=== PATIENT | male | born 1950 | race Caucasian/White ===

== ENCOUNTER → 2017-03-19 | Outpatient (CLI) | payer BC ==
[~2017-03-19] MED LIST: CLC100 PO; FISHOIL PO; NAPR1TAB9 PO; VTMEUNK
[2017-03-19 13:25] LABS: ALT/SGPT 32 U/L (12-78); BLOOD UREA NITROGEN 14 mg/dl (7-18); BUN/CREATININE RATIO 11.3 (10-20); CALCIUM 9.1 mg/dl (8.5-10.1); CARBON DIOXIDE 26 mmol/L (21-32); CHLORIDE 109 mmol/L (98-107); CHOLESTEROL 282 mg/dl (0-200); ESTIMATED AVERAGE GLUCOSE 123 mg/dl; GLUCOSE 113 mg/dl (70-99); HA1C FLAG Normal (Normal); POTASSIUM 4.2 mmol/L (3.5-5.1); SODIUM 144 mmol/L (136-145); TRIGLYCERIDES 256 mg/dl (0-150); VERY LOW DENSITY LIPOPROT CALC 51 mg/dl
[2017-03-19 13:35] LABS: ALB/GLOB RATIO 0.9 (0.9-2); ALKALINE PHOSPHATASE 67 U/L (45-117); AST/SGOT 23 U/L (15-37); CHOLESTEROL/HDL RATIO 6.9; HDL CHOLESTEROL 41 mg/dl; LDL CHOLESTEROL CALCULATED 190 mg/dl
== END | disposition home or self-care (01) ==
LOC: C.LABPVFM 07:46
PROVIDERS: ATTEND Family Medicine
DX: D33.3 Benign neoplasm of cranial nerves (principal); E78.00 Pure hypercholesterolemia, unspecified; R73.9 Hyperglycemia, unspecified

== ENCOUNTER → 2017-08-17 | Outpatient (CLI) | payer BC ==
[2017-08-17 13:01] LABS: BLOOD UREA NITROGEN 16 mg/dl (7-18); BUN/CREATININE RATIO 13.9 (10-20); CALCIUM 8.9 mg/dl (8.5-10.1); CARBON DIOXIDE 29 mmol/L (21-32); CHLORIDE 109 mmol/L (98-107); CREATININE 1.16 mg/dl (0.60-1.40); GLUCOSE 99 mg/dl (70-99); POTASSIUM 4.2 mmol/L (3.5-5.1); SODIUM 142 mmol/L (136-145)
[2017-08-17 13:05] LABS: CHOLESTEROL 217 mg/dl (0-200); HDL CHOLESTEROL 54 mg/dl; LDL CHOLESTEROL CALCULATED 110 mg/dl; TRIGLYCERIDES 263 mg/dl (0-150); VERY LOW DENSITY LIPOPROT CALC 53 mg/dl
== END | disposition home or self-care (01) ==
LOC: C.LABPVFM 08:37
PROVIDERS: ATTEND Family Medicine
DX: E78.00 Pure hypercholesterolemia, unspecified (principal); Z11.59 Encounter for screening for other viral diseases

== ENCOUNTER 2021-07-14 16:09 | Inpatient (IN) ==
[2021-07-14] MEDS ORDERED: cefTRIAXone SODIUM 1,000 MG/50 ML BAG IV STA (18:02)
[2021-07-14 18:03] LABS: Basophils # (auto) 0.01 K/uL (0-0.2); Basophils % (auto) 0.1 %; Eosinophils # (auto) 0.02 K/uL (0-0.5); Eosinophils % (auto) 0.2 %; Hematocrit (blood only) 45.3 % (42-52); Hemoglobin 15.8 g/dL (14.0-18.0); Immature Granulocytes # (auto) 0.02 K/uL (0.00-0.02); Immature Granulocytes % (auto) 0.2 %; Lymphocytes # (auto) 0.59 K/uL (1.2-3.4); Mean Corpuscular Hemoglobin 31.4 pg (25-34); Mean Corpuscular Hgb Conc 34.9 g/dL (32-36); Mean Corpuscular Volume 90.1 fL (80-100); Monocytes # (auto) 0.54 K/uL (0.11-0.59); Monocytes % (auto) 5.5 %; Neutrophils # (auto) 8.67 K/uL (1.4-6.5); Platelet Count 167 K/uL (130-400); RDW Coefficient of Variation 13.9 % (11.5-14.5); RDW Standard Deviation 45.8 fL (36.4-46.3); Red Blood Count 5.03 M/uL (4.7-6.1); White Blood Count 9.85 K/uL (4.8-10.8)
--- NOTE | 2021-07-14 18:07 | Emergency Department Note ---
Impression & Plan Sepsis, Acute pyelitis, High serum chloride ED Provider Note NAME: PENNY LORENZO AGE: 71 SEX: M : 1950 ARRIVES VIA: Walk-In INFORMANT: Patient ED PROVIDER(S): Nick Davila DO CHIEF COMPLAINT: Back pain HPI: Patient is a 71-year-old male who presents the ER for fevers, and shaking chills. This started in the past 24 hours. He has been vomiting inter mittently. He believes he threw up about 3-5 times. Was having dysuria, urgency, and frequency as well. He is also having bilateral back pain. No headache or change in vision. No chest pain or shortness of breath. Fevers have been as high as 103 at home. He notes he will start shaking and cannot stop. ROS: See above HPI for pertinent positives & negatives. A total of 10 systems reviewed and were otherwise negative. PAST MEDICAL HISTORY:See Below PAST SURGICAL HISTORY:See Below FAMILY HISTORY:See Below SOCIAL HISTORY:See Below HOME MEDICATIONS:See Below ALLERGIES:See Below VITALS:See Below PHYSICAL EXAMINATION: GENERAL: Sitting up in bed, alert, well appearing, well nourished, no distress, non-toxic EYE EXAM: normal conjunctiva. OROPHARYNX: no exudate, no erythema, lips, buccal mucosa, and tongue normal and mucous membranes are moist NECK: supple, no nuchal rigidity, no adenopathy, non-tender LUNGS: Clear to auscultation. Normal chest wall mechanics HEART: no murmurs, S1 normal and S2 normal ABDOMEN: abdomen soft, non-tender, normo-active bowel sounds, no masses, no rebound or guarding. UPPER EXTREMITIES: upper extremities are grossly normal. LOWER EXTREMITIES: No pitting edema. NEURO EXAM: Normal sensorium, cranial nerves II-XII grossly intact, normal speech, no gross weakness of arms, no gross weakness of legs. MEDICAL DECISION MAKING: Patient is a 71-year-old male who presents the ER for fevers, shaking chills and back pain. This is in combination with urinary symptoms. IV was established blood work was obtained. Labs show no significant leukocytosis or anemia. INR unremarkable. BMP with slightly elevated chloride. Creatinine 1.5. LFTs bilirubin was unremarkable. UA does suggest UTI with nitrates, leuks, whites and only 5-10 epithelial cells with +[address] bacteria. Cov[address] was negative. CT abdomen pelvis does suggest a cystitis with questionable pyelonephritis. Patient was given IV fluids and IV Rocephin. He was updated bedside. He was febrile and tachycardic. He was admitted to the hospital for further work-up of his sepsis secondary to [place]. Triage Nursing notes reviewed. Limited review of prior medical records performed Vital Signs: reviewed and remarkable for febrile, tachycardic Differential diagnosis: Differential diagnosis includes etiologies such as sepsis, UTI, pneumonia, metabolic, electrolyte abnormalities, cardiac sources, intracerebral event, toxicologic, neurological, as well as others were entertained. ER treatment provided: See below Diagnostics interpreted by me: ECG: Sinus rhythm rate 97 Normal axis No PVCs QTC 436 Cardiac Monitoring: An order was placed for continuous cardiac monitoring. The monitor shows a rate of 92 with sinus rhythm. Laboratory studies: As stated above and show below. Imaging studies: See below Consultation(s): D/w w/ Toby for further eval Procedures: none Critical Care: None Past Med/Surg History Medical History (Updated 07/14/21 @ 22:06 by Nick Davila DO) Acid reflux disease Arthritis Backache Benign hypertension Elevated blood pressure reading Elevated blood sugar level Encounter for screening for diabetes mellitus Encounter for screening for lipid disorder External hemorrhoids Hearing difficulty Hypercholesterolemia Hyperlipidemia Hypertension Itching Knee pain Knee sprain Muscle cramping Psoriasis Rash and nonspecific skin eruption Screening for prostate cancer Vestibular schwannoma Surgical History (Updated 10/21/20 @ 10:22 by Lianet Middleton) History of hemorrhoidectomy History of hernia repair Hx of lymph node biopsy Family History (Updated 10/21/20 @ 10:23 by Lianet Middleton) Mother Myocardial infarction Father Myocardial infarction Sister Cancer, Onset Age: 70 do not know what type Denies family history of Ovarian cancer Prostate cancer Breast cancer Colorectal cancer Social History (Updated 10/21/20 @ 10:31 by Lianet Middleton) Smoking Status: Never smoker Tobacco Type: Cigarettes Age Started Using Tobacco: 16; Age Quit Using Tobacco: 40; packs per day: 1.5; Years Smoked: 24; Cigarettes Per Day: 30; Number of Years Since Quit: 30; Second Hand Exposure: Yes ( is a smoker with asthma and COPD); Hx Alcohol Use: No Hx Substance Use: No Preferred Language: Maori Communication Ability: Effective Visual Impairment: No Limitations Hearing Ability: Hard of Hearing Activated Sludge Attendant Required: No marital status: Current Living Situation: Spouse current occupational status: employed 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 Mercer) Assistive Devices: Denture - Upper and Denture - Lower Allergies Allergies Allergy/AdvReac Type Severity Reaction Status Date / Time No Known Allergies Allergy Verified 07/14/21 19:39 Home Meds Home Medications Medication Instructions Recorded Confirmed docusate sodium 100 mg capsule 100 mg PO DAILY 04/24/19 07/14/21 (Dulcolax Stool Softener (docusate)) clobetasol 0.05 % topical ointment 1 applic TOPICAL DAILY 10/21/20 07/14/21 triamcinolone acetonide 0.1 % 1 applic TOPICAL BID PRN #1 gm 10/21/20 07/14/21 topical cream acetaminophen 500 mg tablet 1,000 mg PO Q6H PRN tab 11/08/20 07/14/21 (Tylenol Extra Strength) potassium gluconate 2.5 mEq tablet 2.5 meq PO DAILY 03/23/21 07/14/21 silver sulfadiazine 1 % topical 1 applic TOPICAL UD 07/14/21 07/14/21 cream (SSD) Previous Rx's Medication Instructions Recorded omeprazole 20 mg capsule,delayed 20 mg PO DAILY #90 cap 05/25/20 release doxepin 10 mg capsule 20 mg PO DAILY #60 cap 08/23/20 lisinopril 10 mg tablet 10 mg PO DAILY #90 tab 10/08/20 amlodipine 10 mg tablet 10 mg PO DAILY #90 tab 03/23/21 atorvastatin 20 mg tablet 20 mg PO DAILY #90 tab 07/11/21 Results & Data (ED) Vital Signs Vital Signs - 24 hr 07/14/21 16:18 07/14/21 19:24 Temperature 38.1 C H Temperature Source Oral Pulse Rate 120 H 100 H Respiratory Rate 18 18 Respiratory Effort / Characteristics Non-Labored Spontaneous Accessory Muscle Use Respiratory Depth Normal Blood Pressure 102/59 L Blood Pressure Mean 73 Pulse Oximetry 92 98 Oxygen Delivery Method Room Air Room Air Sepsis Recent Fever Within 48 Hours No Sepsis New/Unexplained Change in Mental Status No Sepsis Action Taken by Nursing Physician Notified Laboratory Data Result diagrams: 07/14/21 17:49 07/14/21 17:49 Lab Results 07/14/21 07/14/21 07/14/21 Range/Units 17:49 17:49 17:49 WBC 9.85 (4.8-10.8) K/uL RBC 5.03 (4.7-6.1) M/uL Hgb 15.8 (14.0-18.0) g/dL Hct 45.3 (42-52) % MCV 90.1 (80-100) fL MCH 31.4 (25-34) pg MCHC 34.9 (32-36) g/dL RDW Std Deviation 45.8 (36.4-46.3) fL RDW Coeff of Alhaji 13.9 (11.5-14.5) % Plt Count 167 (130-400) K/uL MPV 10.0 (7.4-10.4) fL Immature Gran % (Auto) 0.2 % Neut % (Auto) 88.0 % Lymph % (Auto) 6.0 % Ritchie % (Auto) 5.5 % Eos % (Auto) 0.2 % Baso % (Auto) 0.1 % Neut # (Auto) 8.67 H (1.4-6.5) K/uL Lymph # (Auto) 0.59 L (1.2-3.4) K/uL Ritchie # (Auto) 0.54 (0.11-0.59) K/uL Eos # (Auto) 0.02 (0-0.5) K/uL Baso # (Auto) 0.01 (0-0.2) K/uL Immature Gran # (Auto) 0.02 (0.00-0.02) K/uL PT 10.3 (9.0-12.0) Seconds INR 1.0 (0.9-1.1) APTT 25.6 (21.0-31.0) Seconds PTT Ratio 1.0 Sodium 141 (136-145) mmol/L Potassium 4.0 (3.5-5.1) mmol/L Chloride 109 H (98-107) mmol/L Carbon Dioxide 27 (21-32) mmol/L Anion Gap 5.0 (3-11) BUN 26 H (7-18) mg/dl Creatinine 1.54 H (0.6-1.4) mg/dl Est Cr Clr Drug Dosing 43.9 ml/min Est GFR ( Amer) 51.8 ml/min Est GFR (Non-Af Amer) 44.7 ml/min BUN/Creatinine Ratio 17.1 (10-20) Glucose 91 (70-99) mg/dl Lactate (0.4-2.0) mmol/L Calcium 9.3 (8.5-10.1) mg/dl Magnesium (1.8-2.4) mg/dl Total Bilirubin 0.6 (0.2-1) mg/dl AST 27 (15-37) U/L ALT 30 (12-78) U/L Alkaline Phosphatase 108 (45-117) U/L Total Protein 7.2 (6.4-8.2) gm/dl Albumin 3.4 (3.4-5.0) gm/dl Globulin 3.8 (2.5-4.0) gm/dl Albumin/Globulin Ratio 0.9 (0.9-2) Urine Color Urine Appearance (Clear) Urine pH (4.5-7.5) Ur Specific [place] (1.000-1.030) Urine Protein (Negative) Urine Glucose (UA) (Negative) Urine Ketones (Negative) Urine Blood (Negative) Urine Nitrite (Negative) Urine Bilirubin (Negative) Urine Urobilinogen (Negative) Ur Leukocyte Esterase (Negative) Urine WBC (Auto) (0-5) /hpf Urine RBC (Auto) (0-4) /hpf U Hyaline Cast (Auto) (0-5) /lpf U Epithel Cells (Auto) (0-5) /lpf Urine Bacteria (Auto) (Negative) Urine Yeast COVID-19 Eval Order SARS-CoV-2 (PCR) (Negative) 07/14/21 07/14/21 07/14/21 Range/Units 17:49 18:30 18:37 WBC (4.8-10.8) K/uL RBC (4.7-6.1) M/uL Hgb (14.0-18.0) g/dL Hct (42-52) % MCV (80-100) fL MCH (25-34) pg MCHC (32-36) g/dL RDW Std Deviation (36.4-46.3) fL RDW Coeff of Alhaji (11.5-14.5) % Plt Count (130-400) K/uL MPV (7.4-10.4) fL Immature Gran % (Auto) % Neut % (Auto) % Lymph % (Auto) % Ritchie % (Auto) % Eos % (Auto) % Baso % (Auto) % Neut # (Auto) (1.4-6.5) K/uL Lymph # (Auto) (1.2-3.4) K/uL Ritchie # (Auto) (0.11-0.59) K/uL Eos # (Auto) (0-0.5) K/uL Baso # (Auto) (0-0.2) K/uL Immature Gran # (Auto) (0.00-0.02) K/uL PT (9.0-12.0) Seconds INR (0.9-1.1) APTT (21.0-31.0) Seconds PTT Ratio Sodium (136-145) mmol/L Potassium (3.5-5.1) mmol/L Chloride (98-107) mmol/L Carbon Dioxide (21-32) mmol/L Anion Gap (3-11) BUN (7-18) mg/dl Creatinine (0.6-1.4) mg/dl Est Cr Clr Drug Dosing ml/min Est GFR ( Amer) ml/min Est GFR (Non-Af Amer) ml/min BUN/Creatinine Ratio (10-20) Glucose (70-99) mg/dl Lactate 1.0 (0.4-2.0) mmol/L Calcium (8.5-10.1) mg/dl Magnesium 2.0 (1.8-2.4) mg/dl Total Bilirubin (0.2-1) mg/dl AST (15-37) U/L ALT (12-78) U/L Alkaline Phosphatase (45-117) U/L Total Protein (6.4-8.2) gm/dl Albumin (3.4-5.0) gm/dl Globulin (2.5-4.0) gm/dl Albumin/Globulin Ratio (0.9-2) Urine Color Dark Yellow Urine Appearance Cloudy A (Clear) Urine pH 5.5 (4.5-7.5) Ur Specific [place] 1.026 (1.000-1.030) Urine Protein 3+ H (Negative) Urine Glucose (UA) Negative (Negative) Urine Ketones 1+ H (Negative) Urine Blood 3+ H (Negative) Urine Nitrite Positive A (Negative) Urine Bilirubin 1+ H (Negative) Urine Urobilinogen Negative (Negative) Ur Leukocyte Esterase 3+ H (Negative) Urine WBC (Auto) >30 H (0-5) /hpf Urine RBC (Auto) 10-30 H (0-4) /hpf U Hyaline Cast (Auto) 1-5 (0-5) /lpf U Epithel Cells (Auto) 5-10 H (0-5) /lpf Urine Bacteria (Auto) 4+ H (Negative) Urine Yeast Not Reportable COVID-19 Eval Order SARS-CoV-2 (PCR) (Negative) 07/14/21 07/14/21 Range/Units 18:41 18:41 WBC (4.8-10.8) K/uL RBC (4.7-6.1) M/uL Hgb (14.0-18.0) g/dL Hct (42-52) % MCV (80-100) fL MCH (25-34) pg MCHC (32-36) g/dL RDW Std Deviation (36.4-46.3) fL RDW Coeff of Alhaji (11.5-14.5) % Plt Count (130-400) K/uL MPV (7.4-10.4) fL Immature Gran % (Auto) % Neut % (Auto) % Lymph % (Auto) % Ritchie % (Auto) % Eos % (Auto) % Baso % (Auto) % Neut # (Auto) (1.4-6.5) K/uL Lymph # (Auto) (1.2-3.4) K/uL Ritchie # (Auto) (0.11-0.59) K/uL Eos # (Auto) (0-0.5) K/uL Baso # (Auto) (0-0.2) K/uL Immature Gran # (Auto) (0.00-0.02) K/uL PT (9.0-12.0) Seconds INR (0.9-1.1) APTT (21.0-31.0) Seconds PTT Ratio Sodium (136-145) mmol/L Potassium (3.5-5.1) mmol/L Chloride (98-107) mmol/L Carbon Dioxide (21-32) mmol/L Anion Gap (3-11) BUN (7-18) mg/dl Creatinine (0.6-1.4) mg/dl Est Cr Clr Drug Dosing ml/min Est GFR ( Amer) ml/min Est GFR (Non-Af Amer) ml/min BUN/Creatinine Ratio (10-20) Glucose (70-99) mg/dl Lactate (0.4-2.0) mmol/L Calcium (8.5-10.1) mg/dl Magnesium (1.8-2.4) mg/dl Total Bilirubin (0.2-1) mg/dl AST (15-37) U/L ALT (12-78) U/L Alkaline Phosphatase (45-117) U/L Total Protein (6.4-8.2) gm/dl Albumin (3.4-5.0) gm/dl Globulin (2.5-4.0) gm/dl Albumin/Globulin Ratio (0.9-2) Urine Color Urine Appearance (Clear) Urine pH (4.5-7.5) Ur Specific [place] (1.000-1.030) Urine Protein (Negative) Urine Glucose (UA) (Negative) Urine Ketones (Negative) Urine Blood (Negative) Urine Nitrite (Negative) Urine Bilirubin (Negative) Urine Urobilinogen (Negative) Ur Leukocyte Esterase (Negative) Urine WBC (Auto) (0-5) /hpf Urine RBC (Auto) (0-4) /hpf U Hyaline Cast (Auto) (0-5) /lpf U Epithel Cells (Auto) (0-5) /lpf Urine Bacteria (Auto) (Negative) Urine Yeast COVID-19 Eval Order Covid19 at [facility] SARS-CoV-2 (PCR) NEGATIVE (Negative) Administered Medications Discontinued Medications Ceftriaxone Sodium (Rocephin) 1,000 mg in 50 mls @ 100 mls/hr IV NOW STA Stop: 07/14/21 18:31 Last Infusion: 07/14/21 20:34 Dose: 0 mls/hr Documented by: [id number] Admin: 07/14/21 19:25 Dose: 100 mls/hr Documented by: [id number] Ioversol (Optiray 320 100ml) 90 ml IV ONCE ONE Stop: 07/14/21 19:17 Last Admin: 07/14/21 19:18 Dose: 90 ml Documented by: [id number] Imaging Data Radiologist's Impression: Chest X-Ray 07/14/21 18:02 XR chest 1V portable HISTORY: SEPSIS COMPARISON: Chest 10/07/2009. FINDINGS: No focal lung consolidations to suggest pneumonia. No evidence for pulmonary edema. The heart is normal in size. No pleural effusions. No pneumotho rax. Left subclavian Port-A-Cath terminates at the distal SVC. There is mild elevation of the right hemidiaphragm. IMPRESSION: No acute process. ACT 112: Negative or not required by law. Electronically signed by: Suman Tolbert M.D. 07/14/2021 6:16 PM Abdomen/Pelvis CT 07/14/21 18:[address] WITH IV CONTRAST CT DOSE: 464.82 mGy.cm HISTORY: Back pain. Sepsis. TECHNIQUE: Multiaxial CT images of the abdomen and pelvis were performed following the use of intravenous contrast. A dose lowering technique was utilized adhering to the principles of ALARA. COMPARISON STUDY: Radiation oncology CT 07/07/2021. Outside hospital PET/CT 03/07/2021. FINDINGS: The lung bases are clear. No pneumoperitoneum. No pneumatosis. No suspicious lytic or blastic osseous lesions. No fractures within the visualized osseous structures. There is a moderate hiatus hernia. Tiny fat-containing umbilical hernia. Small fat-containing left inguinal hernia. Focal superficial soft tissue lesion/thickening within the left lateral hip is again noted. This measures approximately 5 cm. The liver, gallbladder, spleen, adrenal glands, and pancreas are unremarkable. The main portal vein is patent. No retroperitoneal lymphadenopathy. 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 There are 2 right renal cysts. The left kidney enhances normally. No hydronephrosis. There is mild urothelial thickening within the bilateral mid to distal ureters. There is moderate bladder wall thickening with adjacent fat stranding. No pelvic free fluid. No bowel wall thickening or obstruction. Normal appendix. IMPRESSION: 1. Moderate bladder wall thickening with adjacent fat stranding. There is also mild thickening within the mid to distal ureters. This favors a cystitis with associated pyelitis. Recommend correlation with urinalysis. 2. No renal or ureteral stones. No hydronephrosis. 3. Moderate hiatus hernia. 4. No change in the 5 mm superficial soft tissue lesion within the left lateral hip. ACT 112: Negative or not required by law. Electronically signed by: Suman Tolbert M.D. 07/14/2021 7:47 PM Discharge Plan Visit Data Chief Complaint: Fever Stated Complaint: NAUSEA, FEVER, SHAKING, BACK PAIN ED Provider: Nick Davila Discharge Problem: Sepsis, Acute pyelitis, High serum chloride Patient Disposition: Admitted As Inpatient Discharge Instructions Interventions: ED Discharge Assessment Last Done: 07/14/21 20:57
--- NOTE | 2021-07-14 18:18 | XRay Report ---
XR chest 1V portable HISTORY: SEPSIS COMPARISON: Chest 10/07/2009. FINDINGS: No focal lung consolidations to suggest pneumonia. No evidence for pulmonary edema. The hea rt is normal in size. No pleural effusions. No pneumothorax. Left subclavian Port-A-Cath terminates a t the distal SVC. There is mild elevation of the right hemidiaphragm. IMPRESSION: No acute process. ACT 112: Negative or not required by law. Electronically signed by: Suman Tolbert M.D. 07/14/2021 6:16 PM
[2021-07-14 18:20] LABS: Albumin Level 3.4 gm/dl (3.4-5.0); BUN Creatinine Ratio 17.1 (10-20); Calcium 9.3 mg/dl (8.5-10.1); Creatinine Clr Calc Pharmacy 43.9 ml/min; Est GFR (African American) 51.8 ml/min; Est GFR (Non-African American) 44.7 ml/min
[2021-07-14 18:23] LABS: Albumin Globulin Ratio 0.9 (0.9-2); Bilirubin,Total 0.6 mg/dl (0.2-1); Globulin 3.8 gm/dl (2.5-4.0); Total Protein 7.2 gm/dl (6.4-8.2)
[2021-07-14 18:47] LABS: Partial Thromboplastin Time 25.6 Seconds (21.0-31.0); Prothrombin Time 10.3 Seconds (9.0-12.0)
[2021-07-14 19:14] LABS: Appearance Urine Cloudy (Clear); Bacteria Urine Automated 4+ (Negative); Blood Urine 3+ (Negative); Color Urine Dark Yellow; Glucose Urine UA Negative (Negative); Ketones Urine 1+ (Negative); Leukocyte Esterase Urine 3+ (Negative); Nitrite Urine Positive (Negative); Protein Urine 3+ (Negative); Specific Gravity Urine 1.026 (1.000-1.030); Urobilinogen Urine Negative (Negative); WBC Urine Automated >30 /hpf (0-5); pH Urine 5.5 (4.5-7.5)
[2021-07-14] MEDS ORDERED: OPTIRAY 320 100ml IV ONE (19:16)
[2021-07-14 19:36] LABS: Bilirubin Urine 1+ (Negative)
--- NOTE | 2021-07-14 19:49 | CT Scan Report ---
ABDOMEN AND PELVIS CT WITH IV CONTRAST CT DOSE: 464.82 mGy.cm HISTORY: Back pain. Sepsis. TECHNIQUE: Multiaxial CT images of the abdomen and pelvis were performed following the use of intrave nous contrast. A dose lowering technique was utilized adhering to the principles of ALARA. COMPARISON STUDY: Radiation oncology CT 07/07/2021. Outside hospital PET/CT 03/07/2021. FINDINGS: The lung bases are clear. No pneumoperitoneum. No pneumatosis. No suspicious lytic or blast ic osseous lesions. No fractures within the visualized osseous structures. There is a moderate hiatus hernia. Tiny fat-containing umbilical hernia. Small fat-containing left inguinal hernia. Focal super ficial soft tissue lesion/thickening within the left lateral hip is again noted. This measures approx imately 5 cm. The liver, gallbladder, spleen, adrenal glands, and pancreas are unremarkable. The main portal vein is patent. No retroperitoneal lymphadenopathy. Chronic focal dissection of the infrarena l abdominal aorta remains unchanged. There are 2 right renal cysts. The left kidney enhances normally . No hydronephrosis. There is mild urothelial thickening within the bilateral mid to distal ureters. There is moderate bladder wall thickening with adjacent fat stranding. No pelvic free fluid. No bowel wall thickening or obstruction. Normal appendix. IMPRESSION: 1. Moderate bladder wall thickening with adjacent fat stranding. There is also mild thickening within the mid to distal ureters. This favors a cystitis with associated pyelitis. Recommend correlation wi th urinalysis. 2. No renal or ureteral stones. No hydronephrosis. 3. Moderate hiatus hernia. 4. No change in the 5 mm superficial soft tissue lesion within the left lateral hip. ACT 112: Negative or not required by law. Electronically signed by: Suman Tolbert M.D. 07/14/2021 7:47 PM
--- NOTE | 2021-07-14 20:21 | History & Physical Report ---
Date of Service July 14, 2021 Assessment & Plan (1) Acute pyelitis: Plan: Acute pyelitis/cystitis/urinary tract infection/thickened bladder wall and thickened mid/distal ureters- Follow urine culture and sensitivity IV fluids, NSS at 80 mils per hour, follow closely for urinary retention. Bladder scan in ED showed 106 mL Ceftriaxone 1 g IV daily Start tamsulosin 0.4 mg at bedtime Will likely need urologic assessment (2) Cystitis: Plan: See above (3) UTI (urinary tract infection): Plan: See above (4) Acute kidney injury: Plan: Creatinine 1.54 upon admission, with base 1.1. Give NSS at 80 mils per hour for 1 L Repeat laboratories in a.m. 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 (6) Hyperlipidemia: Plan: Continue atorvastatin 20 mg daily (7) Hypertension: Plan: Hold lisinopril and amlodipine due to relative hypotension (8) Acid reflux disease: Plan: Continue omeprazole/pantoprazole History of Present Illness Chief Complaint: The patient presents to the emergency department with complaint of fevers and shaking chills over the past 24 hours, and vomiting x5 that began this morning Primary Care Provider: MANNY Saucedo The patient is a 71-year-old male with a past medical history including cutaneous T-cell lymphoma, hypertension, constipation, and GERD who presents with symptoms as noted above. He reports that he had developed initially right flank pain yesterday, which then extended over to suprapubic discomfort and left flank pain. He has had no previous episodes of this discomfort. He also has urinary frequency and urinating small volumes of urine at each time. Abnormal laboratories: Creatinine 1.54, abnormal urinalysis. Vital signs with temperature of 100.6 F. COVID-[address] scan of abdomen and pelvis with IV contrast: Moderate bladder wall thickening with adjacent fat stranding. There is also mild thickening within the mid to distal ureters, favoring a cystitis with associated pyelitis. Moderate hiatus hernia. Treatment from the ED: Ceftriaxone IV. Allergies Allergy/AdvReac Type Severity Reaction Status Date / Time No Known Allergies Allergy Verified 07/14/21 19:39 Home Medications Medication Instructions Recorded Confirmed Type docusate sodium 100 mg capsule 100 mg PO DAILY 04/24/19 07/14/21 History (Dulcolax Stool Softener (docusate)) omeprazole 20 mg capsule,delayed 20 mg PO DAILY #90 cap 05/25/20 07/14/21 Rx release doxepin 10 mg capsule 20 mg PO DAILY #60 cap 08/23/20 07/14/21 Rx lisinopril 10 mg tablet 10 mg PO DAILY #90 tab 10/08/20 07/14/21 Rx clobetasol 0.05 % topical ointment 1 applic TOPICAL DAILY 10/21/20 07/14/21 History triamcinolone acetonide 0.1 % 1 applic TOPICAL BID PRN #1 gm 10/21/20 07/14/21 History topical cream acetaminophen 500 mg tablet 1,000 mg PO Q6H PRN tab 11/08/20 07/14/21 History (Tylenol Extra Strength) amlodipine 10 mg tablet 10 mg PO DAILY #90 tab 03/23/21 07/14/21 Rx potassium gluconate 2.5 mEq tablet 2.5 meq PO DAILY 03/23/21 07/14/21 History atorvastatin 20 mg tablet 20 mg PO DAILY #90 tab 07/11/21 07/14/21 Rx silver sulfadiazine 1 % topical 1 applic TOPICAL UD 07/14/21 07/14/21 History cream (SSD) Past Med/Surg History Medical History (Updated 07/14/21 @ 21:30 by Toby Marcelino MD) Acid reflux disease Arthritis Backache Benign hypertension Elevated blood pressure reading Elevated blood sugar level Encounter for screening for diabetes mellitus Encounter for screening for lipid disorder External hemorrhoids Hearing difficulty Hypercholesterolemia Hyperlipidemia Hypertension Itching Knee pain Knee sprain Muscle cramping Psoriasis Rash and nonspecific skin eruption Screening for prostate cancer Vestibular schwannoma Surgical History (Updated 10/21/20 @ 10:22 by Lianet Middleton) History of hemorrhoidectomy History of hernia repair Hx of lymph node biopsy Family History (Updated 10/21/20 @ 10:23 by Lianet Middleton) Mother Myocardial infarction Father Myocardial infarction Sister Cancer, Onset Age: 70 do not know what type Denies family history of Ovarian cancer Prostate cancer Breast cancer Colorectal cancer Social History (Updated 10/21/20 @ 10:31 by Lianet Middleton) Smoking Status: Never smoker Tobacco Type: Cigarettes Age Started Using Tobacco: 16; Age Quit Using Tobacco: 40; packs per day: 1.5; Years Smoked: 24; Cigarettes Per Day: 30; Number of Years Since Quit: 30; Second Hand Exposure: Yes ( is a smoker with asthma and COPD); Hx Alcohol Use: No Hx Substance Use: No Preferred Language: Monegasque Communication Ability: Effective Visual Impairment: No Limitations Hearing Ability: Hard of Hearing Field Producer Required: No marital status: Current Living Situation: Spouse current occupational status: employed 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 Mercer) Assistive Devices: Denture - Upper and Denture - Lower Review of Systems Review of Systems: The patient denies chest pain, palpitations, shortness of breath, dyspnea on exertion, cough, lower extremity swelling, sore throat, nausea, vomiting, diarrhea , constipation, blood in urine or stool, dysuria, urinary frequency or urgency, lightheadedness, dizziness, headache, memory loss, loss of consciousness, abnormal bruising or bleeding, imbalance, focal or generalized weakness, numbness or tingling in arms or legs, generalized arthralgias or myalgias, neck pain, or night sweats. The review of systems is otherwise negative other than for that already noted above, and at least 10 systems have been reviewed. Physical Exam Physical Exam: The patient is awake, alert and oriented 3, well developed and well nourished, normocephalic and atraumatic, lying in bed and in no acute distress. HEENT--PERRL, EOMI, mucous membranes and oropharynx dry. Neck--supple. No JVD. No bruits. Thyroid normal, trachea midline, no adenopathy. Heart--normal S1 and S2. No murmurs, rubs or gallops. Lungs--clear bilaterally, no respiratory distress, no accessory muscle use. Abdomen--normal bowel sounds and soft. Nontender. Nondistended, no hernias or masses, no organomegaly. Extremities--no cyanosis or clubbing. No edema. Dermatologic--diffuse changes of cutaneous T-cell lymphoma Neurologic--cranial nerves II through XII grossly intact. Rheumatologic--normal range of motion. Psychiatric--normal affect. Results & Data Results & Data ([facility]) Vital Signs (Past 12 Hours) Vital Signs Temp Pulse Resp BP Pulse Ox 07/14/21 19:24 100 H 18 98 07/14/21 16:18 100.6 F H 120 H 18 102/59 L 92 Laboratory Results Laboratory Results WBC 9.85 K/uL (4.8-10.8) 07/14/21 17:49 RBC 5.03 M/uL (4.7-6.1) 07/14/21 17:49 Hgb 15.8 g/dL (14.0-18.0) 07/14/21 17:49 Hct 45.3 % (42-52) 07/14/21 17:49 MCV 90.1 fL (80-100) 07/14/21 17:49 MCH 31.4 pg (25-34) 07/14/21 17:49 MCHC 34.9 g/dL (32-36) 07/14/21 17:49 RDW Std Deviation 45.8 fL (36.4-46.3) 07/14/21 17:49 RDW Coeff of Alhaji 13.9 % (11.5-14.5) 07/14/21 17:49 Plt Count 167 K/uL (130-400) 07/14/21 17:49 MPV 10.0 fL (7.4-10.4) 07/14/21 17:49 Immature Gran % (Auto) 0.2 % 07/14/21 17:49 Neut % (Auto) 88.0 % 07/14/21 17:49 Lymph % (Auto) 6.0 % 07/14/21 17:49 [place] % (Auto) 5.5 % 07/14/21 17:49 Eos % (Auto) 0.2 % 07/14/21 17:49 Baso % (Auto) 0.1 % 07/14/21 17:49 Neut # (Auto) 8.67 K/uL (1.4-6.5) H 07/14/21 17:49 Lymph # (Auto) 0.59 K/uL (1.2-3.4) L 07/14/21 17:49 [place] # (Auto) 0.54 K/uL (0.11-0.59) 07/14/21 17:49 Eos # (Auto) 0.02 K/uL (0-0.5) 07/14/21 17:49 Baso # (Auto) 0.01 K/uL (0-0.2) 07/14/21 17:49 Immature Gran # (Auto) 0.02 K/uL (0.00-0.02) 07/14/21 17:49 PT 10.3 Seconds (9.0-12.0) 07/14/21 17:49 INR 1.0 (0.9-1.1) 07/14/21 17:49 APTT 25.6 Seconds (21.0-31.0) 07/14/21 17:49 PTT Ratio 1.0 07/14/21 17:49 Sodium 141 mmol/L (136-145) 07/14/21 17:49 Potassium 4.0 mmol/L (3.5-5.1) 07/14/21 17:49 Chloride 109 mmol/L (98-107) H 07/14/21 17:49 Carbon Dioxide 27 mmol/L (21-32) 07/14/21 17:49 Anion Gap 5.0 (3-11) 07/14/21 17:49 BUN 26 mg/dl (7-18) H 07/14/21 17:49 Creatinine 1.54 mg/dl (0.6-1.4) H 07/14/21 17:49 Est Cr Clr Drug Dosing 43.9 ml/min 07/14/21 17:49 Est GFR ( Amer) 51.8 ml/min 07/14/21 17:49 Est GFR (Non-Af Amer) 44.7 ml/min 07/14/21 17:49 BUN/Creatinine Ratio 17.1 (10-20) 07/14/21 17:49 Glucose 91 mg/dl (70-99) 07/14/21 17:49 Lactate 1.0 mmol/L (0.4-2.0) 07/14/21 18:37 Calcium 9.3 mg/dl (8.5-10.1) 07/14/21 17:49 Magnesium 2.0 mg/dl (1.8-2.4) 07/14/21 17:49 Total Bilirubin 0.6 mg/dl (0.2-1) 07/14/21 17:49 AST 27 U/L (15-37) 07/14/21 17:49 ALT 30 U/L (12-78) 07/14/21 17:49 Alkaline Phosphatase 108 U/L (45-117) 07/14/21 17:49 Total Protein 7.2 gm/dl (6.4-8.2) 07/14/21 17:49 Albumin 3.4 gm/dl (3.4-5.0) 07/14/21 17:49 Globulin 3.8 gm/dl (2.5-4.0) 07/14/21 17:49 Albumin/Globulin Ratio 0.9 (0.9-2) 07/14/21 17:49 Urine Color Dark Yellow 07/14/21 18:30 Urine Appearance Cloudy (Clear) A 07/14/21 18:30 Urine pH 5.5 (4.5-7.5) 07/14/21 18:30 Ur Specific [place] 1.026 (1.000-1.030) 07/14/21 18:30 Urine Protein 3+ (Negative) H 07/14/21 18:30 Urine Glucose (UA) Negative (Negative) 07/14/21 18:30 Urine Ketones 1+ (Negative) H 07/14/21 18:30 Urine Blood 3+ (Negative) H 07/14/21 18:30 Urine Nitrite Positive (Negative) A 07/14/21 18:30 Urine Bilirubin 1+ (Negative) H 07/14/21 18:30 Urine Urobilinogen Negative (Negative) 07/14/21 18:30 Ur Leukocyte Esterase 3+ (Negative) H 07/14/21 18:30 Urine WBC (Auto) >30 /hpf (0-5) H 07/14/21 18:30 Urine RBC (Auto) 10-30 /hpf (0-4) H 07/14/21 18:30 U Hyaline Cast (Auto) 1-5 /lpf (0-5) 07/14/21 18:30 U Epithel Cells (Auto) 5-10 /lpf (0-5) H 10/14/21 18:30 Urine Bacteria (Auto) 4+ (Negative) H 07/14/21 18:30 Urine Yeast Not Reportable 07/14/21 18:30 COVID-19 Eval Order Covid19 at [facility] 07/14/21 18:41 SARS-CoV-2 (PCR) NEGATIVE (Negative) 07/14/21 18:41 Impressions Chest X-Ray 07/14/21 18:02 XR chest 1V portable HISTORY: SEPSIS COMPARISON: Chest 10/07/2009. FINDINGS: No focal lung consolidations to suggest pneumonia. No evidence for pulmonary edema. The heart is normal in size. No pleural effusions. No pneumothorax. Left subclavian Port-A-Cath terminates at the distal SVC. There is mild elevation of the right hemidiaphragm. IMPRESSION: No acute process. ACT 112: Negative or not required by law. Electronically signed by: Suman Tolbert M.D. 07/14/2021 6:16 PM Abdomen/Pelvis CT 07/14/21 18:[address] WITH IV CONTRAST CT DOSE: 464.82 mGy.cm HISTORY: Back pain. Sepsis. TECHNIQUE: Multiaxial CT images of the abdomen and pelvis were performed following the use of intravenous contrast. A dose lowering technique was utilized adhering to the principles of ALARA. COMPARISON STUDY: Radiation oncology CT 07/07/2021. Outside hospital PET/CT 03/07/2021. FINDINGS: The lung bases are clear. No pneumoperitoneum. No pneumatosis. No suspicious lytic or blastic osseous lesions. No fractures within the visualized osseous structures. There is a moderate hiatus hernia. Tiny fat-containing umbilical hernia. Small fat-containing left inguinal hernia. Focal superficial soft tissue lesion/thickening within the left lateral hip is again noted. This measures approximately 5 cm. The liver, gallbladder, spleen, adrenal glands, and pancreas are unremarkable. The main portal vein is patent. No retroperitoneal lymphadenopathy. 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 There are 2 right renal cysts. The left kidney enhances normally. No hydronephrosis. There is mild urothelial thickening within the bilateral mid to distal ureters. There is moderate bladder wall thickening with adjacent fat stranding. No pelvic free fluid. No bowel wall thickening or obstruction. Normal appendix. IMPRESSION: 1. Moderate bladder wall thickening with adjacent fat stranding. There is also mild thickening within the mid to distal ureters. This favors a cystitis with associated pyelitis. Recommend correlation with urinalysis. 2. No renal or ureteral stones. No hydronephrosis. 3. Moderate hiatus hernia. 4. No change in the 5 mm superficial soft tissue lesion within the left lateral hip. ACT 112: Negative or not required by law. Electronically signed by: Suman Tolbert M.D. 07/14/2021 7:47 PM Code Status & VTE Plan Code Status Full code VTE Prophylaxis Plan VTE Prophylaxis will be ordered: Yes PG Care Time/CCT Total # of Minutes Spent Total Time Spent with Patient: Total time spent is greater than 50% in coordination of care (as documented) at patient's floor/unit and/or counseling patient: Coding Level of Care Code 67559 Initial Inpt Care Lvl 3 Diagnoses Acute kidney injury N17.9 Cutaneous T-cell lymphoma C84.A9 Lymphoma site: extranodal excluding spleen and other solid organs UTI (urinary tract infection) N39.0 Hyperlipidemia E78.5 Hypertension I10 Acid reflux disease K21.9 Cystitis N30.90 Acute pyelitis N10 (1) Cutaneous T-cell lymphoma Lymphoma site: extranodal excluding spleen and other solid organs Qualified Code(s): C84.A9 - Cutaneous T-cell lymphoma, unspecified, extranodal and solid organ sites
[2021-07-14] MEDS ORDERED: ONDANSETRON INJ 2 MG/ML 2 ML VIAL IV PRN (21:59)
[2021-07-14] MEDS ORDERED: SODIUM CHLORIDE 0.9% 1000ML 1,000 ML IV SCH (21:59)
[2021-07-14] MEDS ORDERED: cefTRIAXone SODIUM 1,000 MG in DEXTROSE 5% 50 ML IV SCH (22:30)
[2021-07-14] MEDS: TAMSULOSIN HCL 0.4 MG CAP PO SCH (22:57)
[2021-07-15] MEDS: ACETAMINOPHEN 325 MG TAB PO PRN ×2 (04:59→14:02)
[2021-07-15] MEDS: ENOXAPARIN INJ 30 MG/0.3 ML SYR SQ SCH (08:19)
[2021-07-15] MEDS: DOXEPIN HCL 10 MG CAPSULE PO SCH (08:19)
[2021-07-15] MEDS: PANTOprazole 40 MG TAB PO SCH (08:19)
[2021-07-15] MEDS: DOCUSATE SODIUM 100 MG CAP PO SCH (08:19)
[2021-07-15] MEDS: ATORVASTATIN 20 MG TAB PO SCH (08:20)
[2021-07-15] MEDS: CLOBETASOL PROPIONATE 0.05% OINT 15 GM TUBE EXT SCH (08:20)
[2021-07-15] MEDS: SILVER SULFADIAZINE 1% CR 50 GM JAR TOP SCH ×2 (08:20→09:00)
--- NOTE | 2021-07-15 08:57 | Hospitalist Progress Note ---
Date of Service July 15, 2021 Assessment & Plan (1) Acute pyelitis: Plan: Acute pyelitis/cystitis/urinary tract infection/thickened bladder wall and thickened mid/distal ureters- Follow urine culture currently growing E Coli but awaiting sensitivity Fluid resuscitation stopped on 07/15/2021 bladder scan in ED showed 106 mL Ceftriaxone 1 g IV daily Start tamsulosin 0.4 mg at bedtime We will need to see how he fares after his treatment may consider treating for longer course for possible prostatitis (2) Cystitis: Plan: See above (3) UTI (urinary tract infection): Plan: See above (4) Acute kidney injury: Plan: Creatinine 1.54 upon admission, with base 1.1. Give NSS at 80 mils per hour for 1 L Repeat laboratories in a.m. 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 Review of Systems Review of Systems: Mild distress and fatigue no headache, no visual changes no speech or swallowing issues no chest pain, pressure or palpitations no shortness of breath, cough or wheezes Mild suprapubic abdominal pain, no nausea or vomiting, diarrhea or constipation no dysuria, hematuria or frequency no focal joint pain or swelling no back pain, CVA tenderness or radicular pain no bruising, bleeding or rashes no focal signs of weakness or numbness or altered sensation no complaints of anxiety or depression.. Physical Exam Physical Exam: The patient appeared well nourished and normally developed. Vital signs as documented. Head exam is normocephalic atraumatic Neck is without JVD, thyromegaly, or carotid bruits. Lungs are clear to auscultation, no focal loss of breath sounds Cardiac exam, Rhythm is regular.. No murmurs, rubs or gallops. Abdominal exam reveals normal bowel sounds, soft mild suprapubic tenderness no CVA angle tenderness Extremities are nonedematous and both pedal pulses are present Neurologic exam is alert and oriented, no focal loss of strength or sensation Skin is without bruises or rashes Psychologically is without concerns for anxiety or depression Results & Data Results & Data ([facility]) Vital Signs (Past 12 Hours) Vital Signs Temp Pulse Resp BP Pulse Ox 07/15/21 06:25 98.1 F 78 16 111/62 96 07/14/21 21:20 98.2 F 94 H 16 143/79 H 97 07/14/21 21:03 90 18 126/76 96 PG Care Time/CCT Total # of Minutes Spent Total Time Spent with Patient: Total time spent is greater than 50% in coordination of care (as documented) at patient's floor/unit and/or counseling patient: Coding Level of Care Code 06957 Subseq Hosp Care Lvl 2 Diagnoses Acute pyelitis N10 Cystitis N30.90 UTI (urinary tract infection) N39.0 Acute kidney injury N17.9 Cutaneous T-cell lymphoma C84.A9 Lymphoma site: extranodal excluding spleen and other solid organs Hyperlipidemia E78.5 Hypertension I10 Acid reflux disease K21.9 (1) Cutaneous T-cell lymphoma Lymphoma site: extranodal excluding spleen and other solid organs Qualified Code(s): C84.A9 - Cutaneous T-cell lymphoma, unspecified, extranodal and solid organ sites
[2021-07-15 09:40] LABS: Basophils # (auto) 0.02 K/uL (0-0.2); Basophils % (auto) 0.2 %; Eosinophils % (auto) 0.8 %; Hematocrit (blood only) 42.3 % (42-52); Hemoglobin 14.4 g/dL (14.0-18.0); Immature Granulocytes # (auto) 0.02 K/uL (0.00-0.02); Immature Granulocytes % (auto) 0.2 %; Lymphocytes # (auto) 1.88 K/uL (1.2-3.4); Mean Corpuscular Hemoglobin 31.2 pg (25-34); Mean Corpuscular Volume 91.8 fL (80-100); Monocytes # (auto) 1.31 K/uL (0.11-0.59); Monocytes % (auto) 11.1 %; Neutrophils # (auto) 8.44 K/uL (1.4-6.5); Neutrophils % (auto) 71.7 %; Platelet Count 161 K/uL (130-400); RDW Standard Deviation 46.9 fL (36.4-46.3); Red Blood Count 4.61 M/uL (4.7-6.1); White Blood Count 11.77 K/uL (4.8-10.8)
[2021-07-15 10:21] LABS: Albumin Globulin Ratio 0.8 (0.9-2); Albumin Level 2.9 gm/dl (3.4-5.0); BUN Creatinine Ratio 21.7 (10-20); Bilirubin,Total 0.6 mg/dl (0.2-1); Calcium 8.9 mg/dl (8.5-10.1); Creatinine Clr Calc Pharmacy 65.6 ml/min; Est GFR (African American) 84.3 ml/min; Est GFR (Non-African American) 72.7 ml/min; Globulin 3.7 gm/dl (2.5-4.0); Potassium 3.6 mmol/L (3.5-5.1); Total Protein 6.6 gm/dl (6.4-8.2)
--- NOTE | 2021-07-15 15:31 | Electrocardiogram Report ---
Test Reason : Blood Pressure : / mmHG Vent. Rate : 097 BPM Atrial Rate : 097 BPM P-R Int : 158 ms QRS Dur : 092 ms QT Int : 344 ms P-R-T Axes : 049 012 023 degrees QTc Int : 436 ms Poor data quality, interpretation may be adversely affected Normal sinus rhythm Normal ECG When compared with ECG of 07-OCT-2009 11:57, Vent. rate has increased BY 34 BPM QT has lengthened Confirmed by Jr Aguirre ([id number]) on 07/15/2021 3:30:45 PM Referred By: REFERRED SELF Confirmed By:Jr Aguirre
[2021-07-15] MEDS: TAMSULOSIN HCL 0.4 MG CAP PO SCH (21:52)
[2021-07-15] MEDS: cefTRIAXone SODIUM 2,000 MG in DEXTROSE 5% 50 ML IV SCH (21:53)
[2021-07-16] MEDS: ACETAMINOPHEN 325 MG TAB PO PRN (00:38)
[2021-07-16 08:42] LABS: Basophils # (auto) 0.02 K/uL (0-0.2); Basophils % (auto) 0.2 %; Eosinophils # (auto) 0.29 K/uL (0-0.5); Eosinophils % (auto) 3.2 %; Hematocrit (blood only) 41.1 % (42-52); Hemoglobin 13.9 g/dL (14.0-18.0); Immature Granulocytes # (auto) 0.03 K/uL (0.00-0.02); Immature Granulocytes % (auto) 0.3 %; Lymphocytes # (auto) 1.76 K/uL (1.2-3.4); Lymphocytes % (auto) 19.6 %; Mean Corpuscular Hemoglobin 30.7 pg (25-34); Mean Corpuscular Hgb Conc 33.8 g/dL (32-36); Mean Corpuscular Volume 90.7 fL (80-100); Monocytes # (auto) 1.29 K/uL (0.11-0.59); Monocytes % (auto) 14.4 %; Neutrophils # (auto) 5.58 K/uL (1.4-6.5); Neutrophils % (auto) 62.3 %; Platelet Count 162 K/uL (130-400); RDW Coefficient of Variation 13.6 % (11.5-14.5); RDW Standard Deviation 45.5 fL (36.4-46.3); Red Blood Count 4.53 M/uL (4.7-6.1); White Blood Count 8.97 K/uL (4.8-10.8)
[2021-07-16] MEDS: DOCUSATE SODIUM 100 MG CAP PO SCH (08:55)
[2021-07-16] MEDS: DOXEPIN HCL 10 MG CAPSULE PO SCH (08:55)
[2021-07-16] MEDS: ATORVASTATIN 20 MG TAB PO SCH (08:55)
[2021-07-16] MEDS: PANTOprazole 40 MG TAB PO SCH (08:56)
[2021-07-16] MEDS: ENOXAPARIN INJ 30 MG/0.3 ML SYR SQ SCH (08:56)
[2021-07-16] MEDS: CLOBETASOL PROPIONATE 0.05% OINT 15 GM TUBE EXT SCH (08:56)
[2021-07-16] MEDS: SILVER SULFADIAZINE 1% CR 50 GM JAR TOP SCH (08:56)
[2021-07-16 09:01] LABS: Albumin Level 2.7 gm/dl (3.4-5.0); BUN Creatinine Ratio 19.2 (10-20); Calcium 8.5 mg/dl (8.5-10.1); Creatinine Clr Calc Pharmacy 66.3 ml/min; Est GFR (African American) 85.3 ml/min; Est GFR (Non-African American) 73.6 ml/min; Potassium 3.8 mmol/L (3.5-5.1)
[2021-07-16 09:04] LABS: Albumin Globulin Ratio 0.7 (0.9-2); Bilirubin,Total 0.4 mg/dl (0.2-1); Globulin 3.8 gm/dl (2.5-4.0); Total Protein 6.5 gm/dl (6.4-8.2)
--- NOTE | 2021-07-16 15:50 | Hospitalist Progress Note ---
Date of Service July 16, 2021 Assessment & Plan (1) Acute pyelitis: Plan: Acute pyelitis/cystitis/urinary tract infection/thickened bladder wall and thickened mid/distal ureters- Symptoms improved. Final UC&S growing e coli. Sensitive to ceftriaxone. Continue 1g IV daily today. De-escalate to PO abx tomorrow. Blood cultures pending. White count has normalized at 8.97 today. Fluid resuscitation stopped on 07/15/2021 bladder scan in ED showed 106 mL. Started tamsulosin 0.4 mg at bedtime. May consider treating for longer course for possible prostatitis although symptoms have already improved with IV abx. Possible d/c home tomorrow on PO abx. (2) Cystitis: Plan: See above (3) UTI (urinary tract infection): Plan: See above (4) Acute kidney injury: Plan: Creatinine 1.54 upon admission, with base 1.1. Given NSS at 80 mils per hour for 1 L. Cr improved to 1.02 today. Continue to monitor. 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 Both now improved. Would resume meds on discharge. (8) Acid reflux disease: Plan: Symptoms controlled continue omeprazole/pantoprazole Plan: enoxaparin for DVT prevention Admission and Anticipated Discharge Date Admission Date: July 14, 2021 Subjective 71 year old male admitted for acute pyelitis and cystitis. Patient reports he is feeling much better this morning. Pain, n/v, and urinary symptoms have resolved. Review of Systems Review of Systems: All systems reviewed & are unremarkable except as noted in Subjective Physical Exam Physical Exam: Temp Pulse Resp BP Pulse Ox 36.6 C 80 18 137/73 96 07/16/21 07:35 07/16/21 07:35 07/16/21 07:35 07/16/21 07:35 07/16/21 07:35 Patient is afebrile. Vital signs stable. Constitutional: average body habitus; no acute distress Eyes: + anicteric sclerae ENMT: Ears: no hearing impairment Neck: normal visual inspection Respiratory: normal respiratory effort, lungs clear to auscultation Cardiovascular: RRR, no murmur, no edema Gastrointestinal (Abdomen): Inspection/Auscultation: + hypoactive bowel sounds Percussion/Palpation: abdomen soft; abdomen nontender and no hepatosp lenomegaly Psychiatric: A+Ox3, euthymic affect Results & Data Results & Data ([facility]) Vital Signs (Past 12 Hours) Vital Signs Temp Pulse Resp BP Pulse Ox 07/16/21 07:35 36.6 C 80 18 137/73 96 PG Care Time/CCT Total # of Minutes Spent Total Time Spent with Patient: Total time spent is greater than 50% in coordination of care (as documented) at patient's floor/unit and/or counseling patient: Coding Level of Care Code 34241 Subseq Hosp Care Lvl 2 Medical Decision Making Moderate Complexity Diagnoses Acute pyelitis N10 Cystitis N30.90 UTI (urinary tract infection) N39.0 Acute kidney injury N17.9 Cutaneous T-cell lymphoma C84.A9 Lymphoma site: extranodal excluding spleen and other solid organs Hyperlipidemia E78.5 Hypertension I10 Acid reflux disease K21.9 (1) Cutaneous T-cell lymphoma Lymphoma site: extranodal excluding spleen and other solid organs Qualified Code(s): C84.A9 - Cutaneous T-cell lymphoma, unspecified, extranodal and solid organ sites
[2021-07-16] MEDS: TAMSULOSIN HCL 0.4 MG CAP PO SCH (20:24)
[2021-07-16] MEDS: cefTRIAXone SODIUM 2,000 MG in DEXTROSE 5% 50 ML IV SCH (22:45)
[2021-07-16 23:15] VITALS: O2SAT 95
[2021-07-17] MEDS ORDERED: TAMSULOSIN HCL 0.4 MG CAP PO SCH
[2021-07-17] MEDS ORDERED: CEFDINIR 300 MG CAP PO SCH
[2021-07-17 05:59] LABS: Basophils # (auto) 0.03 K/uL (0-0.2); Basophils % (auto) 0.3 %; Eosinophils # (auto) 0.45 K/uL (0-0.5); Eosinophils % (auto) 4.6 %; Hematocrit (blood only) 41.3 % (42-52); Hemoglobin 14.4 g/dL (14.0-18.0); Immature Granulocytes # (auto) 0.03 K/uL (0.00-0.02); Immature Granulocytes % (auto) 0.3 %; Lymphocytes % (auto) 22.3 %; Mean Corpuscular Hemoglobin 31.4 pg (25-34); Mean Corpuscular Hgb Conc 34.9 g/dL (32-36); Mean Platelet Volume 9.7 fL (7.4-10.4); Monocytes # (auto) 1.35 K/uL (0.11-0.59); Monocytes % (auto) 13.7 %; Neutrophils # (auto) 5.79 K/uL (1.4-6.5); Neutrophils % (auto) 58.8 %; Platelet Count 185 K/uL (130-400); RDW Coefficient of Variation 13.4 % (11.5-14.5); Red Blood Count 4.59 M/uL (4.7-6.1); White Blood Count 9.85 K/uL (4.8-10.8)
[2021-07-17 06:28] LABS: Albumin Level 2.8 gm/dl (3.4-5.0); BUN Creatinine Ratio 15.9 (10-20); Calcium 8.8 mg/dl (8.5-10.1); Creatinine Clr Calc Pharmacy 61.5 ml/min; Est GFR (African American) 77.9 ml/min; Est GFR (Non-African American) 67.2 ml/min; Potassium 3.7 mmol/L (3.5-5.1)
[2021-07-17 06:30] LABS: Albumin Globulin Ratio 0.7 (0.9-2); Bilirubin,Total 0.3 mg/dl (0.2-1); Globulin 4.1 gm/dl (2.5-4.0); Total Protein 6.9 gm/dl (6.4-8.2)
[2021-07-17 08:12] VITALS: BP 135/75; PULSE 86; TEMP 98.1
[2021-07-17] MEDS: PANTOprazole 40 MG TAB PO SCH (08:19)
[2021-07-17] MEDS: SILVER SULFADIAZINE 1% CR 50 GM JAR TOP SCH (08:19)
[2021-07-17] MEDS: DOXEPIN HCL 10 MG CAPSULE PO SCH (08:19)
[2021-07-17] MEDS: ATORVASTATIN 20 MG TAB PO SCH (08:19)
[2021-07-17] MEDS: DOCUSATE SODIUM 100 MG CAP PO SCH (08:19)
[2021-07-17] MEDS: ENOXAPARIN INJ 30 MG/0.3 ML SYR SQ SCH (08:19)
[2021-07-17] MEDS: CLOBETASOL PROPIONATE 0.05% OINT 15 GM TUBE EXT SCH (08:19)
[2021-07-17] MEDS ORDERED: Nursing to Pharmacy Communication SCH (12:15)
--- NOTE | 2021-07-20 10:18 | Discharge Summary ---
Date of Service July 20, 2021 Admission HPI Per Admitting Provider The patient is a 71-year-old male with a past medical history including cutaneous T-cell lymphoma, hypertension, constipation, and GERD who presents with symptoms as noted above. He reports that he had developed initially right flank pain yesterday, which then extended over to suprapubic discomfort and left flank pain. He has had no previous episodes of this discomfort. He also has urinary frequency and urinating small volumes of urine at each time. Abnormal laboratories: Creatinine 1.54, abnormal urinalysis. Vital signs with temperature of 100.6 F. COVID-[address] scan of abdomen and pelvis with IV contrast: Moderate bladder wall thickening with adjacent fat stranding. There is also mild thickening within the mid to distal ureters, favoring a cystitis with associated pyelitis. Moderate hiatus hernia. Treatment from the ED: Ceftriaxone IV. Principal Diagnosis Acute cystitis, pyelitis Discharge Exam General: well developed, well nourished, no acute distress, comfortable Neck: supple, trachea midline, normal thyroid Lungs: clear to auscultation bilaterally, normal respiratory effort, no accessory muscle use, no distress Heart: regular S1 and S2, no murmur, peripheral pulses normal, capillary refill normal, no edema Abdomen: soft, NT, ND, + BS, no hepatomegaly, normal to percussion Extremities: normal in appearance, no cyanosis, no petechiae, strength is 5/5 bilaterally Neuro: awake, cooperative, moves all extremities, no focal motor deficits, CN II-XII intact, sensation in extremities intact, normal speech Skin: warm, dry, no rash, normal turgor Psych: Awake, alert oriented x 3, euthymic affect Discharge Data Allergies Allergy/AdvReac Type Severity Reaction Status Date / Time No Known Allergies Allergy Verified 07/14/21 19:39 Consultations 07/14/21 19:56 ED Decision to Admit Stat Ordered Studies 07/14/21 18:03 CT abd pelvis IV con only Stat Hospital Course (1) Acute pyelitis: Acute pyelitis/cystitis/urinary tract infection/thickened bladder wall and thickened mid/distal ureters no active signs of sepsis, blood cultures show no growth urine culture: E Coli - sensitive to 3rd generation cephalosporins good response to Ceftriaxone 1 g IV daily while admitted change to Cefdinir 300mg BID x 11 more days Start tamsulosin 0.4 mg at bedtime, continues on discharge to relax prostate, improve bladder emptying stay well hydrated follow up with PCP (2) Cystitis: See above (3) UTI (urinary tract infection): See above (4) Acute kidney injury: Creatinine 1.54 upon admission, with base 1.1. Give NSS at 80 mils per hour for 1 L Cr back to baseline, making a lot of urine, electrolytes stable (5) Cutaneous T-cell lymphoma: Continue usual topical treatments, doxepin may also help cutaneous symptoms (6) Hyperlipidemia: Continue atorvastatin 20 mg daily (7) Hypertension: resume lisinopril now that renal function back to baseline amlodipine resumed (8) Acid reflux disease: Symptoms controlled continue omeprazole/pantoprazole enoxaparin for DVT prevention Total Time Total Time Spent Total Time Spent (In Minutes): 32 minutes Total Time Includes: Examination of the Patient, Discharge Planning, Medication Reconciliation and Other (spoke with at bedside) Discharge Plan Discharge Items Patient Disposition: Home - Self-Care Reason For Visit: CYSTITIS, PYELONEPHRITIS Discharge Diagnosis: Cystitis, pyelitis (infection of ureters) E coli UTI Condition on Discharge: Good Goals: complete course of Cefdinir stay well hydrated, well nourished follow up with PCP Activity: Resume your previous activity Driving/Machine Use: No limitations Weightbearing: Full weightbearing Non-emergency contact: Primary Care Provider Call non-emergency contact if: you have any medication questions, your symptoms worsen and you have a fever Follow-up/Referrals: Maia Moore CRNP [Primary Care Provider] - (one week) Diet: Regular Addtl Attending Provider Instructions: Medications: - CEFDINIR: 300mg twice a day for 11 more days, start this evening - FLOMAX: continue 0.4mg daily to relax prostate, improve bladder emptying Sepsis, UTI with cystitis, pyelitis on imaging urine culture with E coli, sensitive to Rocephin, transition to Cefdinir for 11 more days blood cultures clean, WBC normal, no fever stay well hydrated, well rested, follow up with PCP use flomax to relax prostate, improve urination Acute kidney injury: completely resolved after IV fluids and treatment of infection stay well hydrated by mouth, safe to resume lisinopril Pending Studies at Discharge: No Stand-Alone Forms: My [facility], Smoking Cessation Medications and DC Order Prescriptions: New tamsulosin 0.4 mg Capsule 0.4 mg PO HS 30 Days Qty: 30 RF: 3 cefdinir 300 mg capsule 300 mg PO BID 11 Days Qty: 22 RF: 0 Continued potassium gluconate 2.5 mEq tablet 2.5 meq PO DAILY RF: 0 clobetasol 0.05 % ointment 1 applic topical DAILY RF: 0 acetaminophen [Tylenol Extra Strength] 500 mg tablet 1,000 mg PO Q6H PRN (Reason: Fever Or Pain) RF: 0 omeprazole 20 mg capsule,delayed release(DR/EC) 20 mg PO DAILY Qty: 90 RF: 3 lisinopril 10 mg tablet 10 mg PO DAILY Qty: 90 RF: 3 amlodipine 10 mg tablet 10 mg PO DAILY Qty: 90 RF: 3 atorvastatin 20 mg tablet 20 mg PO DAILY Qty: 90 RF: 3 triamcinolone acetonide 0.1 % cream 1 applic topical BID PRN (Reason: Rash) Qty: 1 RF: 0 doxepin 10 mg capsule 20 mg PO DAILY Qty: 60 RF: 2 docusate sodium [Dulcolax Stool Softener (dss)] 100 mg capsule 100 mg PO DAILY RF: 0 silver sulfadiazine [SSD] 1 % cream 1 applic TOPICAL UD RF: 0 Discharge Orders: Discharge Order (Routine); Ordered 07/17/21 Ordered By: Richard Camargo/Other Patient Handouts: Preventing Deep Vein Thrombosis Admission Data Admit Date/Time: 07/14/21 20:19 Attending Provider: Richard Verma Admit Provider: Toby Marcelino Primary Care Provider: Maia Moore Other Providers: Toby Marcelino Other Interventions: Discharge Summary Assessment (RN) Last Done: 07/17/21 11:53 Coding Level of Care Code D/C DAY MANAGEMENT >30 MINS Diagnoses Acute pyelitis N10 Cystitis N30.90 UTI (urinary tract infection) N39.0 Acute kidney injury N17.9 Cutaneous T-cell lymphoma C84.A9 Lymphoma site: extranodal excluding spleen and other solid organs Hyperlipidemia E78.5 Hypertension I10 Acid reflux disease K21.9
--- NOTE | 2021-07-22 13:00 | Coding Query ---
CODING QUERY To promote full compliance with coding requirements relating to patient care, provider participation is requested in all cases of hims coder uncertainty. Please assist us with the question(s) below: Coding Question(s): Discharge states patient with no active signs of Sepsis but documentation under addtl attending provider instructions states, Sepsis, UTI w/ cystitis, pyelitis on imaging. Please clarify below: ( ) Patient with Sepsis (x ) Sepsis Ruled Out ( ) Other Please Explain: Thank you Jenaro Cleary Principal Diagnosis: "that condition established after study, to be chiefly responsible for occasioning the admission of the patient to the hospital for care." Co-Existing Principal Diagnosis: "when two or more diagnoses equally meet the criteria for principal diagnosis as determined by the circumstances of admission, diagnostic work up, and/or therapy provided, and the Alphabetic Index, Tabular List, or another coding guideline does not provide sequencing direction, any one of the diagnoses may be sequenced first." "When the physician has documented what appears to be a current diagnosis in the body of the record, but has not included the diagnosis in the final diagnostic statement, the physician should be asked whether the diagnosis should be added." (Source Coding Clinic 2 QTR90. p3-4) YANELIS
== END 2021-07-17 13:08 | disposition home or self-care (01) | DRG 690 ==
LOC: ED 16:09 → 3N 20:19 → SUATTDRO 20:19 → 3N 20:57

== ENCOUNTER 2022-07-14 10:39 | Observation (INO) ==
--- NOTE | 2022-07-14 11:06 | Emergency Department Note ---
Impression & Plan Wound infection DC ED Provider Note HPI: The patient is a 72-year-old male with history of cutaneous lymphoma, presents the emergency department with a chief complaint of wound infection to the right hip and left lower extremity below the knee. Patient recently finished targeted radiation therapy to these areas. He states he has had increased pain over the past several weeks as well as some purulent drainage from underneath the wounds. On my assessment here in the ED the patient is hemodynamically stable, he is a large wound with moderate surrounding erythema to the right hip area consistent with eschar that is now falling off with some purulent drainage underneath, similar lesion is noted to the left lower extremity below the knee where he also received targeted radiation however smaller in size. Patient states he went to his outpatient appointment today to receive chemotherapy initiation and instead was advised to come to the emergency department for wound evaluation. States he does not have an appointment to follow-up with wound care for another 10 days. On arrival to the ED the patient is hemodynamically stable, he is afebrile, he is otherwise in no acute distress. ROS: -Skin: Wound infections *10 point review systems was conducted and is otherwise negative unless stated above *Outpatient medications and allergy history reviewed PE: General: Alert HEENT: Normocephalic, trachea midline Eyes: Extraocular eye movement is intact, no scleral erythema Pulmonary: Clear to auscultation bilaterally, no wheezing Cardio: Regular rate and rhythm GI: Abdomen is soft, nontender : No suprapubic tenderness MSK: No evidence of trauma or malformation of the extremities, no edema Skin: Lesion to the right lateral upper extremity with moderate surrounding erythema, no crepitus to palpation, there is a large central eschar measuring approximately 5 cm in diameter that is mobile with purulent material underneath, lesion to the right lower extremity below the knee consistent with subcutaneous lymphoma, 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 CT imaging does not show any evidence of underlying abscess of the wound to the right lower extremity near the hip or evidence of subcutaneous abscess/fluid collection to the wound of the left lower extremity, no evidence of any subcutaneous gas formation either. There is surrounding cellulitic changes. Patient's lab work does not show any leukocytosis, he is afebrile not tachycardic here in the ED, low suspicion for any systemic infection at this time but the patient was treated with broad- spectrum antibiotics for cellulitis. I do suspect given the size and appearance of these wounds that he will require admission for surgical debridement. Case was discussed with the on-call hospitalist for [facility], Dr. Perez, and the patient will be admitted for further care. Case was also discussed with on-call general surgery, Dr. Dickerson, who was in agreement for consultation and states he will evaluate the patient while he is in the ED Diagnosis: 1. Wound infection to right lower extremity 2. Wound infection to left lower extremity 3. History of cutaneous lymphoma with targeted radiation therapy Disposition: Admission Holden Busby DO Emergency Medicine Past Med/Surg History Medical History (Updated 07/14/22 @ 15:50 by Holden Busby DO) Acid reflux disease Arthritis Backache Benign hypertension Elevated blood pressure reading Elevated blood sugar level Encounter for screening for diabetes mellitus Encounter for screening for lipid disorder External hemorrhoids Hearing difficulty High serum chloride History of chemotherapy Brentuximab (01/03/2019 - 05/30/2019 x 8 cycles) Brentuximab (11/07/2021 - Present x 6 cycles thus far) Hypercholesterolemia Hyperlipidemia Hypertension Itching Knee pain Knee sprain Muscle cramping Psoriasis Rash and nonspecific skin eruption Screening for prostate cancer Sepsis Vestibular schwannoma Surgical History History of hemorrhoidectomy History of hernia repair Hx of lymph node biopsy Family History Mother Myocardial infarction Father Myocardial infarction Sister Cancer, Onset Age: 70 do not know what type Denies family history of Ovarian cancer Prostate cancer Breast cancer Colorectal cancer Social History Smoking Status: Never smoker Tobacco Type: Cigarettes Age Started Using Tobacco: 16; Age Quit Using Tobacco: 40; packs per day: 1.5; Years Smoked: 24; Cigarettes Per Day: 30; Number of Years Since Quit: 30; Second Hand Exposure: No; Hx Alcohol Use: Yes Alcohol type: wine Hx Substance Use: No Preferred Language: Namibian Communication Ability: Effective Visual Impairment: No Limitations Hearing Ability: Hard of Hearing 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: No Beliefs That Will Affect Care: None marital status: Current Living Situation: Spouse current occupational status: employed 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 Mercer) Assistive Devices: Glasses Allergies Allergies Allergy/AdvReac Type Severity Reaction Status Date / Time No Known Allergies Allergy Verified 07/11/22 11:07 Home Meds Home Medications Medication Instructions Recorded Confirmed docusate sodium 100 mg capsule 100 mg PO DAILY 04/24/19 07/14/22 (Dulcolax Stool Softener (docusate)) triamcinolone acetonide 0.1 % 1 applic topical BID PRN Rash #1 g 10/21/20 07/14/22 topical cream acetaminophen 500 mg tablet 1,000 mg PO Q6H PRN Fever Or Pain 11/08/20 07/14/22 (Tylenol Extra Strength) ondansetron HCl 8 mg tablet 8 mg PO Q8H PRN Nausea 06/01/22 07/14/22 oxycodone 5 mg capsule 5 mg PO Q8H PRN Pain 06/01/22 07/14/22 prochlorperazine maleate 10 mg 10 mg PO Q6H PRN Nausea 06/01/22 07/14/22 tablet (Compazine) vitamin C 500 mg-multivitamin with 1 tab PO DAILY 06/01/22 07/14/22 minerals chewable tablet (Emergen-C) Previous Rx's Medication Instructions Recorded omeprazole 20 mg capsule,delayed 20 mg PO DAILY #90 caps 05/25/20 release doxepin 10 mg capsule 20 mg PO DAILY #60 caps 08/23/20 atorvastatin 20 mg tablet 20 mg PO DAILY #90 tabs 07/11/21 lisinopril 10 mg tablet 10 mg PO DAILY #90 tabs 10/12/21 tamsulosin 0.4 mg capsule 0.4 mg PO HS 30 days #90 caps 10/12/21 amlodipine 10 mg tablet 10 mg PO DAILY #90 tabs 03/20/22 silver sulfadiazine 1 % topical 1 applic topical TID #85 grams 06/19/22 cream (Silvadene) metronidazole 1 % topical gel 1 applic topical BID #60 grams 07/11/22 (Metrogel) Results & Data (ED) Vital Signs Vital Signs - 24 hr 07/14/22 10:41 07/14/22 10:39 07/14/22 12:45 Temperature 36.5 C Temperature Source Oral Pulse Rate 91 H 78 Pulse Rate from SpO2 Sensor 77 Respiratory Rate 16 18 Respiratory Effort / Characteristics Non-Labored Non-Labored Respiratory Depth Normal Normal Blood Pressure 104/64 Blood Pressure Mean 77 Pulse Oximetry 98 97 Oxygen Delivery Method Room Air Room Air Sepsis Recent Fever Within 48 Hours No Sepsis New/Unexplained Change in Mental Status No Sepsis Action Taken by Nursing No Action Required 07/14/22 13:00 07/14/22 13:43 07/14/22 14:00 Temperature Temperature Source Pulse Rate 77 80 80 Pulse Rate from SpO2 Sensor 78 Respiratory Rate 16 18 17 Respiratory Effort / Characteristics Respiratory Depth Blood Pressure 111/66 Blood Pressure Mean 81 Pulse Oximetry 96 Oxygen Delivery Method Sepsis Recent Fever Within 48 Hours Sepsis New/Unexplained Change in Mental Status Sepsis Action Taken by Nursing Laboratory Data Result diagrams: 07/14/22 11:12 07/14/22 11:12 Lab Results 07/14/22 07/14/22 07/14/22 Range/Units 11:12 11:12 11:12 WBC 7.87 (4.8-10.8) K/ul RBC 4.38 L (4.63-6.08) M/uL Hgb 13.0 L (14.0-18.0) g/dl Hct 37.8 L (40.1-51.0) % MCV 86.3 (80.0-100.0) fL MCH 29.7 (25.0-34.0) pg MCHC 34.4 (32.0-36.0) g/dL RDW Std Deviation 39.2 (36.4-46.3) fL RDW Coeff of Alhaji 12.4 (11.5-14.5) % Plt Count 215 (130-400) K/uL MPV 9.2 L (9.4-12.4) fL Immature Gran % (Auto) 0.4 % Neut % (Auto) 71.2 % Lymph % (Auto) 14.0 % Fulton % (Auto) 11.7 % Eos % (Auto) 2.2 % Baso % (Auto) 0.5 % Neut # (Auto) 5.61 (1.4-6.5) K/uL Lymph # (Auto) 1.10 L (1.2-3.4) K/uL Fulton # (Auto) 0.92 H (0.24-0.82) K/uL Eos # (Auto) 0.17 (0-0.50) K/uL Baso # (Auto) 0.04 (0-0.2) K/uL Immature Gran # (Auto) 0.03 H (0.00-0.02) K/uL Sodium 137 (136-145) mmol/L Potassium 4.4 (3.5-5.1) mmol/L Chloride 104 (98-107) mmol/L Carbon Dioxide 26 (21-32) mmol/L Anion Gap 7 (3-11) BUN 31 H (6-23) mg/dl Creatinine 1.16 (0.6-1.4) mg/dl Est Cr Clr Drug Dosing 51.9 ml/min Est GFR ( Amer) 72.5 ml/min Est GFR (Non-Af Amer) 62.6 ml/min BUN/Creatinine Ratio 26.7 H (10-20) Glucose 88 (70-99(Fasting)) mg/dl Lactate 0.9 (0.4-2.0) mmol/L Calcium 9.3 (8.5-10.1) mg/dl Magnesium 1.9 (1.7-2.4) mg/dl Total Bilirubin 0.4 (0.2-1.0) mg/dl Direct Bilirubin 0.1 (0-0.2) mg/dl AST 15 (13-39) U/L ALT 14 (7-52) U/L Alkaline Phosphatase 69 (34-104) U/L Total Protein 6.2 (6.0-8.3) gm/dl Albumin 3.3 L (3.4-5.0) gm/dl Procalcitonin (0-0.5) ng/ml SARS-CoV-2, RNA, NAAT (NEGATIVE) 07/14/22 07/14/22 Range/Units 11:12 15:06 WBC (4.8-10.8) K/ul RBC (4.63-6.08) M/uL Hgb (14.0-18.0) g/dl Hct (40.1-51.0) % MCV (80.0-100.0) fL MCH (25.0-34.0) pg MCHC (32.0-36.0) g/dL RDW Std Deviation (36.4-46.3) fL RDW Coeff of Alhaji (11.5-14.5) % Plt Count (130-400) K/uL MPV (9.4-12.4) fL Immature Gran % (Auto) % Neut % (Auto) % Lymph % (Auto) % Fult[place] % (Auto) % Eos % (Auto) % Baso % (Auto) % Neut # (Auto) (1.4-6.5) K/uL Lymph # (Auto) (1.2-3.4) K/uL Fulton # (Auto) (0.24-0.82) K/uL Eos # (Auto) (0-0.50) K/uL Baso # (Auto) (0-0.2) K/uL Immature Gran # (Auto) (0.00-0.02) K/uL Sodium (136-145) mmol/L Potassium (3.5-5.1) mmol/L Chloride (98-107) mmol/L Carbon Dioxide (21-32) mmol/L Anion Gap (3-11) BUN (6-23) mg/dl Creatinine (0.6-1.4) mg/dl Est Cr Clr Drug Dosing ml/min Est GFR ( Amer) ml/min Est GFR (Non-Af Amer) ml/min BUN/Creatinine Ratio (10-20) Glucose (70-99(Fasting)) mg/dl Lactate (0.4-2.0) mmol/L Calcium (8.5-10.1) mg/dl Magnesium (1.7-2.4) mg/dl Total Bilirubin (0.2-1.0) mg/dl Direct Bilirubin (0-0.2) mg/dl AST (13-39) U/L ALT (7-52) U/L Alkaline Phosphatase (34-104) U/L Total Protein (6.0-8.3) gm/dl Albumin (3.4-5.0) gm/dl Procalcitonin < 0.05 (0-0.5) ng/ml SARS-CoV-2, RNA, NAAT NEGATIVE (NEGATIVE) Administered Medications Discontinued Medications Vancomycin HCl 1,500 mg/ (Sodium Chloride) 530 mls @ 200 mls/hr IV NOW ONE Stop: 07/14/22 13:46 Last Admin: 07/14/22 12:31 Dose: 200 mls/hr Documented By: INGA Piperacillin Sod/Tazobactam Sod (Zosyn) 4.5 gm in 120 mls @ 240 mls/hr IV NOW ONE Stop: 07/14/22 11:37 Last Infusion: 07/14/22 12:31 Dose: 0 mls/hr Documented By: Admin: 07/14/22 11:59 Dose: 240 mls/hr Documented By: INGA Ioversol (Ioversol 350 Mg 100ml Prefilled Syringe) 95 ml IV ONCE ONE Stop: 07/14/22 13:42 Last Admin: 07/14/22 13:42 Dose: 95 ml Documented By: MIKAELA Morphine Sulfate (Morphine Sulfate 4 Mg/Ml 1 Ml Carp\Vial) 4 mg IV NOW STA Stop: 07/14/22 14:33 Last Admin: 07/14/22 15:08 Dose: 4 mg Documented By: LUIS MIGUEL Ondansetron HCl (Ondansetron Inj 2 Mg/Ml 2 Ml Vial) 4 mg IV NOW STA Stop: 07/14/22 14:33 Last Admin: 07/14/22 15:08 Dose: 4 mg Documented By: LUIS MIGUEL Imaging Data Radiologist's Impression: Chest X-Ray 07/14/22 11:01 XR chest 1V portable HISTORY: Sepsis COMPARISON: Chest 07/14/2021. FINDINGS: No pneumothorax. No pleural effusions. The heart is normal in size. A left subclavian Port-A-Cath remains at the SVC. No new focal lung consolidations to suggest a pneumonia. No evidence for pulmonary edema. Mild elevation the right hemidiaphragm, unchanged. IMPRESSION: No acute process within the chest. ACT 112: Negative or not required by law. Electronically signed by: Suman Tolbert M.D. 07/14/2022 12:[address] 07/14/22 11:20 CT pelvis w/IV con only HISTORY: eval R hip wound, eval for osteo/abscess TECHNIQUE: Multiaxial CT images of the pelvis were performed following the intravenous administration of 95 cc of Optiray 350 and reformatted in the sagittal and coronal plane at the workstation by the radiologist. COMPARISON STUDY: Radiation therapy pelvis CT 06/06/2022. PET CT 05/10/2022. FINDINGS: There is a large skin ulceration at the right lateral hip at the previous location of the patient's subcutaneous mass. This skin ulceration measures approximately 6 cm. There is enhancement at the rim of the skin ulceration without definite residual mass. Small amount of debris/fluid located within the skin ulceration. There is subcutaneous edema within the right lateral hip adjacent to the skin ulceration. No loculated fluid collections to suggest an abscess. The skin ulceration does not abut the adjacent femur. No destructive changes within the visualized pelvic structures to suggest an associated osteomyelitis. There is a small fat-containing left inguinal hernia. Mild enhan cement in the borderline enlarged right inguinal lymph nodes are noted. Mild asymmetrically enlarged right external iliac lymph nodes measuring up to 1.5 x 0.9 cm. These have progressed in the interval. 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 The visualized loops of bowel show no wall thickening or obstruction. No hip effusion. IMPRESSION: 1. There is a large skin ulceration within the right lateral hip at the previous location of the patient's subcutaneous mass. There is enhancement at the rim of the skin ulceration which contains a small amount of debris/fluid. However, no definite residual mass identified. 2. No loculated fluid collections to suggest an abscess. 3. No evidence for osteomyelitis. 4. Mild hyperenhancement and mild enlargement of the right inguinal/pelvic sidewall lymph nodes compared to the prior study. This could be reactive or represent developing metastatic disease. Follow-up recommended. ACT 112: Negative or not required by law. Electronically signed by: Suman Tolbert M.D. 07/14/2022 2:[address] 07/14/22 11:21 CT tib/fib LT w con HISTORY: 72 years-old Male eval skin wound, eval for infection/abscess soft tissue infection of the left lower leg COMPARISON: None TECHNIQUE: Multiple axial CT images of the left tibia and fibula were obtained following the intravenous administration of 95 mL Optiray 350. A dose lowering technique was used consistent with the principals of MARITZA. FINDINGS: There is [id number] atherosclerosis of the arterial structures. Subcutaneous edema with skin thickening is noted within the posterior medial tissues of the upper calf measuring approximately 3.8 x 5.5 cm. No drainable fluid collection or intramuscular extension. No acute fracture, dislocation, osseous erosion or suspicious bone lesion. Mild osteoarthritis of the knee and ankle. IMPRESSION: 1. No acute osseous abnormality. 2. Soft tissue wound of the posterior medial upper calf with probable associated cellulitis. No abscess. ACT 112: Negative or not required by law. The above report was generated using voice recognition software. It may contain grammatical, syntax or spelling errors. Electronically signed by: Jacinto Bustamante M.D. 07/14/2022 1:58 PM Discharge Plan Visit Data Chief Complaint: Infection, Wound Stated Complaint: REF BY , CANCER, MASS ON SIDE OF LEG ED Provider: Holden Busby Discharge Problem: Wound infection Patient Disposition: Home - Self-Care Forms Stand Alone Forms: [facility], Virtual Emergency Department, Important Visit Information Prescriptions Prescriptions: No Action acetaminophen [Tylenol Extra Strength] 500 mg tablet 1,000 mg PO Q6H PRN (Reason: Fever Or Pain) ondansetron HCl 8 mg tablet 8 mg PO Q8H PRN (Reason: Nausea) prochlorperazine maleate [Compazine] 10 mg tablet 10 mg PO Q6H PRN (Reason: Nausea) Emergen-C 500 mg tablet,chewable 1 tab PO DAILY oxycodone 5 mg capsule 5 mg PO Q8H PRN (Reason: Pain) metronidazole [Metrogel] 1 % gel 1 applic topical BID Qty: 60 3RF omeprazole 20 mg capsule,delayed release(DR/EC) 20 mg PO DAILY Qty: 90 3RF atorvastatin 20 mg tablet 20 mg PO DAILY Qty: 90 3RF tamsulosin 0.4 mg capsule 0.4 mg PO HS 30 Days Qty: 90 3RF lisinopril 10 mg tablet 10 mg PO DAILY Qty: 90 3RF amlodipine 10 mg tablet 10 mg PO DAILY Qty: 90 3RF silver sulfadiazine [Silvadene] 1 % cream 1 applic topical TID Qty: 85 2RF Rx Instructions: apply a 1.5 mm thickness triamcinolone acetonide 0.1 % cream 1 applic topical BID PRN (Reason: Rash) Qty: 1 doxepin 10 mg capsule 20 mg PO DAILY Qty: 60 2RF Rx Instructions: ordered by Derm docusate sodium [Dulcolax Stool Softener (dss)] 100 mg capsule 100 mg PO DAILY Referrals Referrals: Maia Moore CRNP [Primary Care Provider] -
[2022-07-14] MEDS ORDERED: VANCOMYCIN CONSULT ACTIVE PRN (11:08)
[2022-07-14] MEDS ORDERED: VANCOMYCIN HCL 1,500 MG in SODIUM CHLORIDE 0.9% 500 ML IV ONE (11:08)
[2022-07-14] MEDS ORDERED: PIPERACILLIN/TAZOBACTAM 4.5 GM/120 ML BAG IV ONE (11:08)
[2022-07-14 12:05] LABS: Basophils # (auto) 0.04 K/uL (0-0.2); Basophils % (auto) 0.5 %; Eosinophils # (auto) 0.17 K/uL (0-0.50); Eosinophils % (auto) 2.2 %; Hematocrit (blood only) 37.8 % (40.1-51.0); Immature Granulocytes # (auto) 0.03 K/uL (0.00-0.02); Immature Granulocytes % (auto) 0.4 %; Mean Corpuscular Hemoglobin 29.7 pg (25.0-34.0); Mean Corpuscular Hgb Conc 34.4 g/dL (32.0-36.0); Mean Corpuscular Volume 86.3 fL (80.0-100.0); Mean Platelet Volume 9.2 fL (9.4-12.4); Monocytes # (auto) 0.92 K/uL (0.24-0.82); Monocytes % (auto) 11.7 %; Neutrophils # (auto) 5.61 K/uL (1.4-6.5); Neutrophils % (auto) 71.2 %; Platelet Count 215 K/uL (130-400); RDW Coefficient of Variation 12.4 % (11.5-14.5); RDW Standard Deviation 39.2 fL (36.4-46.3); Red Blood Count 4.38 M/uL (4.63-6.08); White Blood Count 7.87 K/ul (4.8-10.8)
--- NOTE | 2022-07-14 12:10 | XRay Report ---
XR chest 1V portable HISTORY: Sepsis COMPARISON: Chest 07/14/2021. FINDINGS: No pneumothorax. No pleural effusions. The heart is normal in size. A left subclavian Port- A-Cath remains at the SVC. No new focal lung consolidations to suggest a pneumonia. No evidence for p ulmonary edema. Mild elevation the right hemidiaphragm, unchanged. IMPRESSION: No acute process within the chest. ACT 112: Negative or not required by law. Electronically signed by: Suman Tolbert M.D. 07/14/2022 12:09 PM
[2022-07-14 12:41] LABS: Albumin Level 3.3 gm/dl (3.4-5.0); BUN Creatinine Ratio 26.7 (10-20); Bilirubin Direct 0.1 mg/dl (0-0.2); Bilirubin,Total 0.4 mg/dl (0.2-1.0); Calcium 9.3 mg/dl (8.5-10.1); Creatinine Clr Calc Pharmacy 51.9 ml/min; Est GFR (African American) 72.5 ml/min; Est GFR (Non-African American) 62.6 ml/min; Magnesium 1.9 mg/dl (1.7-2.4); Potassium 4.4 mmol/L (3.5-5.1); Total Protein 6.2 gm/dl (6.0-8.3)
[2022-07-14] MEDS ORDERED: IOVERSOL 350 MG 100mL Prefilled Syringe IV ONE (13:41)
--- NOTE | 2022-07-14 13:59 | CT Scan Report ---
CT tib/fib LT w con HISTORY: 72 years-old Male eval skin wound, eval for infection/abscess soft tissue infection of the left lower leg COMPARISON: None TECHNIQUE: Multiple axial CT images of the left tibia and fibula were obtained following the intraven ous administration of 95 mL Optiray 350. A dose lowering technique was used consistent with the [facility]. FINDINGS: There is [id number]-kh-[id number] atherosclerosis of the arterial structures. Subcutaneous edema with skin th ickening is noted within the posterior medial tissues of the upper calf measuring approximately 3.8 x 5.5 cm. No drainable fluid collection or intramuscular extension. No acute fracture, dislocation, osseous erosion or suspicious bone lesion. Mild osteoarthritis of the knee and ankle. IMPRESSION: 1. No acute osseous abnormality. 2. Soft tissue wound of the posterior medial upper calf with probable associated cellulitis. No absce ss. ACT 112: Negative or not required by law. The above report was generated using voice recognition software. It may contain grammatical, syntax o r spelling errors. Electronically signed by: Jacinto Bustamante M.D. 07/14/2022 1:58 PM
--- NOTE | 2022-07-14 14:04 | CT Scan Report ---
CT pelvis w/IV con only HISTORY: eval R hip wound, eval for osteo/abscess TECHNIQUE: Multiaxial CT images of the pelvis were performed following the intravenous administration of 95 cc of Optiray 350 and reformatted in the sagittal and coronal plane at the workstation by the radiologist. COMPARISON STUDY: Radiation therapy pelvis CT 06/06/2022. PET CT 05/10/2022. FINDINGS: There is a large skin ulceration at the right lateral hip at the previous location of the p atient's subcutaneous mass. This skin ulceration measures approximately 6 cm. There is enhancement at the rim of the skin ulceration without definite residual mass. Small amount of debris/fluid located within the skin ulceration. There is subcutaneous edema within the right lateral hip adjacent to the skin ulceration. No loculated fluid collections to suggest an abscess. The skin ulceration does not a but the adjacent femur. No destructive changes within the visualized pelvic structures to suggest an associated osteomyelitis. There is a small fat-containing left inguinal hernia. Mild enhancement in t he borderline enlarged right inguinal lymph nodes are noted. Mild asymmetrically enlarged right exter nal iliac lymph nodes measuring up to 1.5 x 0.9 cm. These have progressed in the interval. Stable chr onic dissection within the distal abdominal aorta. The visualized loops of bowel show no wall thicken ing or obstruction. No hip effusion. IMPRESSION: 1. There is a large skin ulceration within the right lateral hip at the previous location of the salvador ent's subcutaneous mass. There is enhancement at the rim of the skin ulceration which contains a smal l amount of debris/fluid. However, no definite residual mass identified. 2. No loculated fluid collections to suggest an abscess. 3. No evidence for osteomyelitis. 4. Mild hyperenhancement and mild enlargement of the right inguinal/pelvic sidewall lymph nodes guevara red to the prior study. This could be reactive or represent developing metastatic disease. Follow-up recommended. ACT 112: Negative or not required by law. Electronically signed by: Suman Tolbert M.D. 07/14/2022 2:02 PM
[2022-07-14] MEDS ORDERED: ONDANSETRON INJ 2 MG/ML 2 ML VIAL IV STA (14:32)
[2022-07-14] MEDS ORDERED: MoRPHine SULFATE 4 MG/ML 1 ML CARP\\VIAL IV STA (14:32)
--- NOTE | 2022-07-14 15:08 | History & Physical Report ---
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 ?R Hip for cellulitis DDx includes radiation necrosis - Admit H&P PE with photos of admitting wounds for comparison/trend Patient with worsening pain, purulent/milky discharge over the last week. Thickened erythema is receding, but with some increased warmth/tenderness around the immediate wound site No leukocytosis Afebrile No gross electrolyte abnormality CTleft lower extremity: No osseous abnormality. Soft tissue wound with suspected associated cellulitis, no abscess. CTpelvis: Large skin ulceration at right lateral hip at location of prior subcu mass, enhancement at the rim with skin authorization with small amount of debris/fluid but no definitive residual mass. No abscess. No evidence of osteo-. Mild hyperenhancement and mild enlargement of right inguinal/pelvic sidewall lymph nodes compared to prior [facility] reactive versus developing metastasis. 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 FDG avid lymph node in left inguinal region, left thigh/gluteal region enhancement which had been improving with Previously methotrexate for several months, this was discontinued and switched to rituximab/02/17/2019 - 05/30/2019. Completed radiation treatment to left chin nodule 11/2020, back lesions 05/2021, left lateral gluteal region 08/2021 Antecubital and right leg progressive disease noted at follow-up in March. Change in treatment was recommended at that time, additional radiation was not recommended at that time 07/05/2022: Completed radiation therapy to right thigh and left lower leg, 4500 cGy. 05/30/2022: Keytruda initiated given multiple increased Patient was scheduled to get third treatment of keytruda today, was referred due to's concern for active cellulitis by oncology center Continue oxycodone Continue Flagyl gel Management of wound sites as above, defer treatments while inpatient pending infectious work-up and treatment GERD Continue PPI Hypertension Continue lisinopril 10 mg daily Amlodipine 10 mg daily Hyperlipidemia Continue atorvastatin 20 mg daily 05/01/2022 echo: EF 60 to 65%, LV SF normal, LV size normal, RV systolic function and size normal. No valvular pathology DVT prophylaxis: SCDs, Lovenox, hold if surgical intervention anticipated Diet: N.p.o. pending evaluation for debridement, otherwise heart healthy Disposition: Medical surgical CODE STATUS: Full code (2) Radiation necrosis of skin and subcutaneous: (3) Hypertension: (4) Hyperlipidemia: (5) UTI (urinary tract infection): (6) Cutaneous T-cell lymphoma: (7) Hypercholesterolemia: History of Present Illness Primary Care Provider: MANNY Saucedo Wilfredo is a 72-year-old male with a past medical history of cutaneous T-cell lymphoma on Keytruda and radiation therapy who presents with concern for a right hip and left lower extremity wound infection. Last 4 days worsening pain, purulence, and discharge from R lateral hip wound. L knee not changing, but chronically +purulence. No fevers, chills, sweats. Feels his left lower extremity wound has not changed but chronically has some purulent material. Right lower extremity wound has not changed, denies purulence. Pain is only worsening in his right hip wound and is increasing and currently a 6/10. Notes that the thickened erythema seems to be receding following radiation. No chest pain, chest pressure, shortness of breath, difficulty breathing. No antibiotic allergies. No medication allergies. Follows with [facility] oncology and radiation oncology. Medical History: Reviewed Medications: Reviewed Surgical History: Reviewed Allergies: Reviewed Social History: No tobacco products. No alochol use. Code Status: Surrogate DM would be Corin. Full Code. Allergies Allergy/AdvReac Type Severity Reaction Status Date / Time No Known Allergies Allergy Verified 07/11/22 11:07 Home Medications Medication Instructions Recorded Confirmed Type docusate sodium 100 mg capsule 100 mg PO DAILY 04/24/19 07/14/22 History (Dulcolax Stool Softener (docusate)) omeprazole 20 mg capsule,delayed 20 mg PO DAILY #90 caps 05/25/20 07/14/22 Rx release doxepin 10 mg capsule 20 mg PO DAILY #60 caps 08/23/20 07/14/22 Rx triamcinolone acetonide 0.1 % 1 applic topical BID PRN Rash #1 g 10/21/20 07/14/22 History topical cream acetaminophen 500 mg tablet 1,000 mg PO Q6H PRN Fever Or Pain 11/08/20 07/14/22 History (Tylenol Extra Strength) atorvastatin 20 mg tablet 20 mg PO DAILY #90 tabs 07/11/21 07/14/22 Rx lisinopril 10 mg tablet 10 mg PO DAILY #90 tabs 10/12/21 07/14/22 Rx tamsulosin 0.4 mg capsule 0.4 mg PO HS 30 days #90 caps 10/12/21 07/14/22 Rx amlodipine 10 mg tablet 10 mg PO DAILY #90 tabs 03/20/22 07/14/22 Rx ondansetron HCl 8 mg tablet 8 mg PO Q8H PRN Nausea 06/01/22 07/14/22 History oxycodone 5 mg capsule 5 mg PO Q8H PRN Pain 06/01/22 07/14/22 History prochlorperazine maleate 10 mg 10 mg PO Q6H PRN Nausea 06/01/22 07/14/22 History tablet (Compazine) vitamin C 500 mg-multivitamin with 1 tab PO DAILY 06/01/22 07/14/22 History minerals chewable tablet (Emergen-C) silver sulfadiazine 1 % topical 1 applic topical TID #85 grams 06/19/22 07/14/22 Rx cream (Silvadene) metronidazole 1 % topical gel 1 applic topical BID #60 grams 07/11/22 07/14/22 Rx (Metrogel) Past Med/Surg History Medical History (Updated 07/14/22 @ 15:27 by Dale Perez MD) Acid reflux disease Arthritis Backache Benign hypertension Elevated blood pressure reading Elevated blood sugar level Encounter for screening for diabetes mellitus Encounter for screening for lipid disorder External hemorrhoids Hearing difficulty High serum chloride History of chemotherapy Brentuximab (01/03/2019 - 05/30/2019 x 8 cycles) Brentuximab (11/07/2021 - Present x 6 cycles thus far) Hypercholesterolemia Hyperlipidemia Hypertension Itching Knee pain Knee sprain Muscle cramping Psoriasis Rash and nonspecific skin eruption Screening for prostate cancer Sepsis Vestibular schwannoma Surgical History History of hemorrhoidectomy History of hernia repair Hx of lymph node biopsy Family History Mother Myocardial infarction Father Myocardial infarction Sister Cancer, Onset Age: 70 do not know what type Denies family history of Ovarian cancer Prostate cancer Breast cancer Colorectal cancer Social History Smoking Status: Never smoker Tobacco Type: Cigarettes Age Started Using Tobacco: 16; Age Quit Using Tobacco: 40; packs per day: 1.5; Years Smoked: 24; Cigarettes Per Day: 30; Number of Years Since Quit: 30; Second Hand Exposure: No; Hx Alcohol Use: Yes Alcohol type: wine Hx Substance Use: No Preferred Language: Luxembourgish Communication Ability: Effective Visual Impairment: No Limitations Hearing Ability: Hard of Hearing Eligibility Services Representative Required: No Beliefs That Will Affect Care: None marital status: Current Living Situation: Spouse current occupational status: employed 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 Mercer) Assistive Devices: Glasses Review of Systems Review of Systems: All systems reviewed & are unremarkable except as noted in Subjective Physical Exam Physical Exam: General: A&Ox3. NAD. Cooperative. HEENT: Atraumatic, normocephalic. PERLAA. Eom Intact. Vision/hearing intact. Pulm: CTAB A&P. -wheezes, -rales, -rhonchi. Symmetrical chest rise. No increased work of breathing. No respiratory distress. Cardiac: RRR, -mrg. Radial pulses intact and symmetrical. Abdominal: Nontender, nondistended, soft. BS present. Skin: See images x3 below Results & Data Results & Data ([facility]) Vital Signs (Past 12 Hours) Vital Signs Temp Pulse Resp BP Pulse Ox O2 Del Method 07/14/22 14:00 80 17 111/66 07/14/22 13:43 80 18 07/14/22 13:00 77 16 96 07/14/22 12:45 78 18 97 07/14/22 10:39 Room Air 07/14/22 10:41 36.5 C 91 H 16 104/64 98 Room Air PG Care Time/CCT Total # of Minutes Spent Total Time Spent with Patient: Total time spent is greater than 50% in coordination of care (as documented) at patient's floor/unit and/or counseling patient: Coding Level of Care Code INT OBSERVATION CARE 50M LVL 2 Diagnoses Cellulitis L03.90 Radiation necrosis of skin and subcutaneous L59.8; Y84.2 Hypertension I10 Hyperlipidemia E78.5 UTI (urinary tract infection) N39.0 Cutaneous T-cell lymphoma C84.A9 Lymphoma site: extranodal excluding spleen and other solid organs Hypercholesterolemia E78.00 (1) Cutaneous T-cell lymphoma Lymphoma site: extranodal excluding spleen and other solid organs Qualified Code(s): C84.A9 - Cutaneous T-cell lymphoma, unspecified, extranodal and solid organ sites
--- NOTE | 2022-07-14 16:45 | Surgery Consultation ---
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 D/W benefits, risks and alternatives of the surgery, the risks - infection, bleeding, sepsis, unhealing wound, may need more surgery, pt understood, he agrees with surgery, he signed informed consent, I answered all questions, (2) Wound infection: see above History of Present Illness Reason for Consultation: right thigh and left lower leg wound Requesting Physician: Holden Busby MD History of Present Illness History of Present Illness Primary Care Provider: MANNY Saucedo Wilfredo is a 72-year-old male with a past medical history of cutaneous T-cell lymphoma on Keytruda and radiation therapy who presents with concern for a right hip and left lower extremity wound infection. Last 4 days worsening pain, purulence, and discharge from R lateral hip wound. L knee not changing, but chronically +purulence. No fevers, chills, sweats. Feels his left lower extremity wound has not changed but chronically has some purulent material. Right lower extremity wound has not changed, denies purulence. Pain is only worsening in his right hip wound and is increasing and currently a 6/10. Notes that the thickened erythema seems to be receding following radiation. No chest pain, chest pressure, shortness of breath, difficulty breathing. No antibiotic allergies. No medication allergies. Follows with [facility] [place] and radiation oncology. I ( Karen Dickerson MD ) got a call for consult right thigh and left low leg wound, I reviewed pt's H/P, labs, CT scans with pt, Medical History: Reviewed Medications: Reviewed Surgical History: Reviewed Allergies: Reviewed Social History: No tobacco products. No alochol use. Code Status: Surrogate DM would be Corin. Full Code. Allergies Allergy/AdvReac Type Severity Reaction Status Date / Time No Known Allergies Allergy Verified 07/11/22 11:07 Home Medications Medication Instructions Recorded Confirmed Type docusate sodium 100 mg capsule 100 mg PO DAILY 04/24/19 07/14/22 History (Dulcolax Stool Softener (docusate)) omeprazole 20 mg capsule,delayed 20 mg PO DAILY #90 caps 05/25/20 Rx release doxepin 10 mg capsule 20 mg PO DAILY #60 caps 08/23/20 07/14/22 Rx triamcinolone acetonide 0.1 % 1 applic topical BID PRN Rash #1 g 10/21/20 History topical cream acetaminophen 500 mg tablet 1,000 mg PO Q6H PRN Fever Or Pain 11/08/20 07/14/22 History (Tylenol Extra Strength) atorvastatin 20 mg tablet 20 mg PO DAILY #90 tabs 07/11/21 07/14/22 R x lisinopril 10 mg tablet 10 mg PO DAILY #90 tabs 10/12/21 07/14/22 Rx tamsulosin 0.4 mg capsule 0.4 mg PO HS 30 days #90 caps 10/12/2107/01 Rx amlodipine 10 mg tablet 10 mg PO DAILY #90 tabs 03/20/22 07/14/22 Rx ondansetron HCl 8 mg tablet 8 mg PO Q8H PRN Nausea 06/01/22 07/14/22 History oxycodone 5 mg capsule 5 mg PO Q8H PRN Pain 06/01/22 07/14/22 History prochlorperazine maleate 10 mg 10 mg PO Q6H PRN Nausea 06/01/2207/14 History tablet (Compazine) vitamin C 500 mg-multivitamin with 1 tab PO DAILY 06/01/2207/14 History minerals chewable tablet (Emergen-C) silver sulfadiazine 1 % topical 1 applic topical TID #85 grams 06/19/22 07/14/22 Rx cream (Silvadene) metronidazole 1 % topical gel 1 applic topical BID #60 grams 07/11/22 07/14/22 Rx (Metrogel) A Past Med/Surg History Medical History(Updated 07/14/22 @ 15:27 by Dale Perez MD) Acid reflux disease Arthritis Backache Benign hypertension Elevated blood pressure reading Elevated blood sugar level Encounter for screening for diabetes mellitus Encounter for screening for lipid disorder External hemorrhoids Hearing difficulty High serum chloride History of chemotherapy Brentuximab (01/03/2019 - 05/30/2019 x 8 cycles) Brentuximab (11/07/2021 - Present x 6 cycles thus far)Hypercholesterolemia Hyperlipidemia Hypertension Itching Knee pain Knee sprain Muscle cramping Psoriasis Rash and nonspecific skin eruption Screening for prostate cancer Sepsis Vestibular schwannoma Surgical History History of hemorrhoidectomy History of hernia repair Hx of lymph node biopsy Family History Mother Myocardial infarctionFather Myocardial infarctionSister Cancer, Onset Age: 70 do not know what typeDenies family history of Ovarian cancer Prostate cancer Breast cancer Colorectal cancer Social History Smoking Status: Never smoker Tobacco Type: Cigarettes Age Started Using Tobacco: 16; Age Quit Using Tobacco: 40; packs per day: 1.5; Years Smoked: 24; Cigarettes Per Day: 30; Number of Years Since Quit: 30; Second Hand Exposure: No; Hx Alcohol Use: Yes Alcohol type: wine Hx Substance Use: No Preferred Language: Vietnamese Communication Ability: Effective Visual Impairment: No Limitations Hearing Ability: Hard of Hearing Code Machine Operator Required: No Beliefs That Will Affect Care: None marital status: Current Living Situation: Spouse current occupational status: employed 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 Mercer) Assistive Devices: Glasses Review of Systems Review of Systems: All systems reviewed & are unremarkable except as noted in Subjective Physical Exam Allergies Allergy/AdvReac Type Severity Reaction Status Date / Time No Known Allergies Allergy Verified 07/11/22 11:07 Home Medications Medication Instructions Recorded Confirmed Type docusate sodium 100 mg capsule 100 mg PO DAILY 04/24/19 07/14/22 History (Dulcolax Stool Softener (docusate)) omeprazole 20 mg capsule,delayed 20 mg PO DAILY #90 caps 05/25/20 07/14/22 Rx release doxepin 10 mg capsule 20 mg PO DAILY #60 caps 08/23/20 07/14/22 Rx triamcinolone acetonide 0.1 % 1 applic topical BID PRN Rash #1 g 10/21/20 07/14/22 History topical cream acetaminophen 500 mg tablet 1,000 mg PO Q6H PRN Fever Or Pain 11/08/20 07/14/22 History (Tylenol Extra Strength) atorvastatin 20 mg tablet 20 mg PO DAILY #90 tabs 07/11/21 07/14/22 Rx lisinopril 10 mg tablet 10 mg PO DAILY #90 tabs 10/12/21 07/14/22 Rx tamsulosin 0.4 mg capsule 0.4 mg PO HS 30 days #90 caps 10/12/21 07/14/22 Rx amlodipine 10 mg tablet 10 mg PO DAILY #90 tabs 03/20/22 07/14/22 Rx ondansetron HCl 8 mg tablet 8 mg PO Q8H PRN Nausea 06/01/22 07/14/22 History oxycodone 5 mg capsule 5 mg PO Q8H PRN Pain 06/01/22 07/14/22 History prochlorperazine maleate 10 mg 10 mg PO Q6H PRN Nausea 06/01/22 07/14/22 History tablet (Compazine) vitamin C 500 mg-multivitamin with 1 tab PO DAILY 06/01/22 07/14/22 History minerals chewable tablet (Emergen-C) silver sulfadiazine 1 % topical 1 applic topical TID #85 grams 06/19/22 07/14/22 Rx cream (Silvadene) metronidazole 1 % topical gel 1 applic topical BID #60 grams 07/11/22 07/14/22 Rx (Metrogel) Patient History Medical History (Updated 07/14/22 @ 15:50 by Holden Busby DO) Acid reflux disease Arthritis Backache Benign hypertension Elevated blood pressure reading Elevated blood sugar level Encounter for screening for diabetes mellitus Encounter for screening for lipid disorder External hemorrhoids Hearing difficulty High serum chloride History of chemotherapy Brentuximab (01/03/2019 - 05/30/2019 x 8 cycles) Brentuximab (11/07/2021 - Present x 6 cycles thus far) Hypercholesterolemia Hyperlipidemia Hypertension Itching Knee pain Knee sprain Muscle cramping Psoriasis Rash and nonspecific skin eruption Screening for prostate cancer Sepsis Vestibular schwannoma Surgical History History of hemorrhoidectomy History of hernia repair Hx of lymph node biopsy Family History Mother Myocardial infarction Father Myocardial infarction Sister Cancer, Onset Age: 70 do not know what type Denies family history of Ovarian cancer Prostate cancer Breast cancer Colorectal cancer Social History Smoking Status: Never smoker Tobacco Type: Cigarettes Age Started Using Tobacco: 16; Age Quit Using Tobacco: 40; packs per day: 1.5; Years Smoked: 24; Cigarettes Per Day: 30; Number of Years Since Quit: 30; Second Hand Exposure: No; Hx Alcohol Use: Yes Alcohol type: wine Hx Substance Use: No Preferred Language: Vietnamese Communication Ability: Effective Visual Impairment: No Limitations Hearing Ability: Hard of Hearing Code Machine Operator Required: No Beliefs That Will Affect Care: None marital status: Current Living Situation: Spouse current occupational status: employed 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 Mercer) Assistive Devices: Glasses Physical Exam Constitutional: WD/WN, vitals as above no distress Eyes: PERRL, conjunctivae normal, anicteric sclerae Neck: trachea midline, no thyromegaly Respiratory: normal respiratory effort, lungs clear to auscultation Cardiovascular: RRR, no murmur, no edema Gastrointestinal (Abdomen): normal bowel sounds, soft, nontender, no hepatosplenomegaly Musculoskeletal: one chronic wound on right lateral thigh, size about [id number], with chronic necrotic tissue some drainage, the wound is deep to muscle layer,some redness around the wound, other wound on left posterior low leg, the wound size about 3x3cm deep to muscle layer, some redness around the wound, one other wound on right low leg, with redness only, size about 3x4cm, Skin: see above Neurologic: patellar DTR's 2+ bilat, sensation intact Psychiatric: A+Ox3, euthymic affect Results & Data ([facility]) Vital Signs (Past 12 Hours) Vital Signs Temp Pulse Resp BP Pulse Ox O2 Del Method 07/14/22 16:00 73 18 97 07/14/22 16:00 111/60 07/14/22 15:30 71 18 07/14/22 15:30 110/65 07/14/22 15:00 69 19 97 07/14/22 15:00 115/66 07/14/22 14:30 76 18 96 07/14/22 14:30 110/60 07/14/22 14:09 76 19 90 07/14/22 14:09 111/66 07/14/22 14:00 80 17 111/66 07/14/22 13:43 80 18 07/14/22 13:00 77 16 96 07/14/22 12:45 78 18 97 07/14/22 10:39 Room Air 07/14/22 10:41 36.5 C 91 H 16 104/64 98 Room Air Laboratory Results Abnormal lab results 07/14/22 07/14/22 Range/Units 11:12 11:12 RBC 4.38 L (4.63-6.08) M/uL Hgb 13.0 L (14.0-18.0) g/dl Hct 37.8 L (40.1-51.0) % MPV 9.2 L (9.4-12.4) fL Lymph # (Auto) 1.10 L (1.2-3.4) K/uL [place] # (Auto) 0.92 H (0.24-0.82) K/uL Immature Gran # (Auto) 0.03 H (0.00-0.02) K/uL BUN 31 H (6-23) mg/dl BUN/Creatinine Ratio 26.7 H (10-20) Albumin 3.3 L (3.4-5.0) gm/dl Diagnostic Findings CT tib/fib LT w con HISTORY: 72 years-old Male eval skin wound, eval for infection/abscess soft tissue infection of the left lower leg COMPARISON: None TECHNIQUE: Multiple axial CT images of the left tibia and fibula were obtained following the intravenous administration of 95 mL Optiray 350. A dose lowering technique was used consistent with the principals of MARITZA. FINDINGS: There is [id number] atherosclerosis of the arterial structures. Subcutaneous edema with skin thickening is noted within the posterior medial tissues of the upper calf measuring approximately 3.8 x 5.5 cm. No drainable fluid collection or intramuscular extension. No acute fracture, dislocation, osseous erosion or suspicious bone lesion. Mild osteoarthritis of the knee and ankle. IMPRESSION: 1. No acute osseous abnormality. 2. Soft tissue wound of the posterior medial upper calf with probable associated cellulitis. No abscess. ACT 112: Negative or not required by law. The above report was generated using voice recognition software. It may contain grammatical, syntax or spelling errors. CT pelvis w/IV con only HISTORY: eval R hip wound, eval for osteo/abscess TECHNIQUE: Multiaxial CT images of the pelvis were performed following the intravenous administration of 95 cc of Optiray 350 and reformatted in the sagittal and coronal plane at the workstation by the radiologist. COMPARISON STUDY: Radiation therapy pelvis CT 06/06/2022. PET CT 05/10/2022. FINDINGS: There is a large skin ulceration at the right lateral hip at the previous location of the patient's subcutaneous mass. This skin ulceration measures approximately 6 cm. There is enhancement at the rim of the skin ulceration without definite residual mass. Small amount of debris/fluid located within the skin ulceration. There is subcutaneous edema within the right lateral hip adjacent to the skin ulceration. No loculated fluid collections to suggest an abscess. The skin ulceration does not abut the adjacent femur. No destructive changes within the visualized pelvic structures to suggest an associated osteomyelitis. There is a small fat-containing left inguinal hernia. Mild enhancement in the borderline enlarged right inguinal lymph nodes are noted. Mild asymmetrically enlarged right external iliac lymph nodes measuring up to 1.5 x 0.9 cm. These have progressed in the interval. 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 The visualized loops of bowel show no wall thickening or obstruction. No hip effusion. IMPRESSION: 1. There is a large skin ulceration within the right lateral hip at the previous location of the patient's subcutaneous mass. There is enhancement at the rim of the skin ulceration which contains a small amount of debris/fluid. However, no definite residual mass identified. 2. No loculated fluid collections to suggest an abscess. 3. No evidence for osteomyelitis. 4. Mild hyperenhancement and mild enlargement of the right inguinal/pelvic sidewall lymph nodes compared to the prior study. This could be reactive or represent developing metastatic disease. Follow-up recommended. ACT 112: Negative or not required by law.
[2022-07-14] MEDS ORDERED: HYDROmorphone INJ 0.5 MG/0.5 ML SYR IV PRN (18:44)
[2022-07-14] MEDS ORDERED: ACETAMINOPHEN 325 MG TAB PO PRN (18:44)
[2022-07-14] MEDS ORDERED: POLYETHYLENE (MIRALAX) 17 GM PACK PO PRN (18:44)
[2022-07-14 19:07] LABS: Basophils # (auto) 0.04 K/uL (0-0.2); Basophils % (auto) 0.6 %; Eosinophils # (auto) 0.27 K/uL (0-0.50); Eosinophils % (auto) 3.9 %; Hematocrit (blood only) 38.1 % (40.1-51.0); Hemoglobin 13.1 g/dl (14.0-18.0); Immature Granulocytes # (auto) 0.03 K/uL (0.00-0.02); Immature Granulocytes % (auto) 0.4 %; Lymphocytes # (auto) 1.19 K/uL (1.2-3.4); Mean Corpuscular Hemoglobin 29.6 pg (25.0-34.0); Mean Corpuscular Hgb Conc 34.4 g/dL (32.0-36.0); Mean Corpuscular Volume 86.2 fL (80.0-100.0); Mean Platelet Volume 8.7 fL (9.4-12.4); Monocytes # (auto) 0.88 K/uL (0.24-0.82); Monocytes % (auto) 12.6 %; Neutrophils # (auto) 4.59 K/uL (1.4-6.5); Neutrophils % (auto) 65.5 %; Platelet Count 206 K/uL (130-400); RDW Coefficient of Variation 12.4 % (11.5-14.5); RDW Standard Deviation 39.1 fL (36.4-46.3); Red Blood Count 4.42 M/uL (4.63-6.08)
[2022-07-14] MEDS ORDERED: DAPTOmycin 250 MG in SYRINGE 0 ML IV SCH (19:15)
[2022-07-14] MEDS: LACTATED RINGER'S 1,000 ML IV SCH (19:19)
[2022-07-14] MEDS: oxyCODONE HCL IR 5 MG TAB (IMMEDIATE RELEASE) PO PRN (19:21)
[2022-07-14 19:33] LABS: Albumin Globulin Ratio 1.3 (0.9-2); Albumin Level 3.5 gm/dl (3.4-5.0); BUN Creatinine Ratio 23.3 (10-20); Bilirubin,Total 0.6 mg/dl (0.2-1.0); C Reactive Protein 2.55 mg/dl (0-0.5); Calcium 9.1 mg/dl (8.5-10.1); Creatinine Clr Calc Pharmacy 58.5 ml/min; Est GFR (African American) 83.7 ml/min; Est GFR (Non-African American) 72.2 ml/min; Globulin 2.7 gm/dl (2.5-4.0); Potassium 4.2 mmol/L (3.5-5.1); Total Protein 6.2 gm/dl (6.0-8.3)
[2022-07-14] MEDS: PIPERACILLIN/TAZOBACTAM 3.375 GM in DEXTROSE 5% 100 ML IV SCH (19:54)
[2022-07-14] MEDS: TAMSULOSIN HCL 0.4 MG CAP PO SCH (20:00)
[2022-07-15] MEDS ORDERED: HEPARIN 100 UNIT/ML 5ML FLUSH FLUSH PRN (01:22)
[2022-07-15] MEDS: PIPERACILLIN/TAZOBACTAM 3.375 GM in DEXTROSE 5% 100 ML IV SCH ×3 (03:12→18:20)
[2022-07-15] MEDS: LACTATED RINGER'S 1,000 ML IV SCH (07:15)
[2022-07-15 08:07] LABS: Basophils # (auto) 0.04 K/uL (0-0.2); Basophils % (auto) 0.7 %; Eosinophils # (auto) 0.33 K/uL (0-0.50); Eosinophils % (auto) 5.5 %; Hematocrit (blood only) 35.9 % (40.1-51.0); Hemoglobin 12.4 g/dl (14.0-18.0); Immature Granulocytes # (auto) 0.03 K/uL (0.00-0.02); Immature Granulocytes % (auto) 0.5 %; Lymphocytes # (auto) 0.86 K/uL (1.2-3.4); Lymphocytes % (auto) 14.4 %; Mean Corpuscular Hemoglobin 30.1 pg (25.0-34.0); Mean Corpuscular Hgb Conc 34.5 g/dL (32.0-36.0); Mean Corpuscular Volume 87.1 fL (80.0-100.0); Monocytes # (auto) 0.72 K/uL (0.24-0.82); Monocytes % (auto) 12.1 %; Neutrophils # (auto) 3.98 K/uL (1.4-6.5); Neutrophils % (auto) 66.8 %; Platelet Count 198 K/uL (130-400); RDW Coefficient of Variation 12.3 % (11.5-14.5); RDW Standard Deviation 39.4 fL (36.4-46.3); Red Blood Count 4.12 M/uL (4.63-6.08); White Blood Count 5.96 K/ul (4.8-10.8)
--- NOTE | 2022-07-15 08:08 | Hospitalist Progress Note ---
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 - Surgery evaluated and recommended surgical debridement 07/15, will anticipate cultures - Patient remains afebrile and w/o leukocytosis or electrolyte abnormality, CRP 2.55 07/15 - Hgb 12.4/Hct 35.9 07/15, CMP wnl - Discontinue Daptomycin, continue Zosyn - Obtain MRSA nares Cutaneous T-cell Lymphoma - Managed by [facility] oncology 05/30/2022: Keytruda initiated given increased number of lesions, was scheduled for Dose #3 07/14 (did not receive), was sent to ER by oncology center 07/05/2022: Completed radiation therapy to right thigh and left lower leg, 4500 cGy - Continue outpatient dose of oxycodone - Continue outpatient Flagyl gel - Additional tx of lymphoma deferred for current workup GERD Continue PPI Hypertension Continue Lisinopril 10 mg daily Continue Amlodipine 10 mg daily Hyperlipidemia Continue atorvastatin 20 mg daily Present on Admission?: Yes (2) Open wound of left hip: (3) Cellulitis: (4) Cutaneous T-cell lymphoma: (5) Hyperlipidemia: (6) Hypertension: (7) Acid reflux disease: Plan Diet:NPO until after debridement IVF: 1 L bolus LR @ 1400 d/t hypotension DVT PPx: Pharmacologic anticoagulation held for surgery Dispo:Med/Surg Code Status: Full Admission and Anticipated Discharge Date Admission Date: July 14, 2022 Supervising Physician Co-Signing Physician Notes I personally examined the patient and verified all smith points of history and exam, discussed case, and agree with decision making with Dr Landry feeling OK post op. no weakness/lightheadedness/faintness/sweats vitals noted nad heent nc at mmm cardio reg no r/m/g lungs clear no r/r/w skin no rashes no pallor or icterus cutaneous Tcell lymphoma w necrotic tissue and surrounding cellulitis - abx, post op, wound care, supportive care, time hypotension - suspect situational - fortunately asymptomatic. fluid bolus, follow. 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 07/15/22: - Awaiting surgical debridement this morning - 05/10 Pain this morning in his right lateral thigh, medicines help after he takes them - Unchanged wound drainage since presentation - No fevers, chills, abdominal pain, chest pain, headaches or shortness of breath Review of Systems Review of Systems: As per HPI. Physical Exam Physical Exam: Gen: NAD, alert, interactive Resp:Non-labored, no wheezing/rhonchi/rales, CTAB CV:RRR, normal S1/S2, no M/R/G Abd: Soft, non-distended, no TTP, normoactive bowels, no masses Extr: 2+ dp bilaterally, no edema * Stage 4 cutaneous lesion on R thigh a/w purulent drainage * Stage 4 cutaneous lesion on L superior-medial calf w/o drainage Results & Data Results & Data ([place]) Vital Signs (Past 12 Hours) Vital Signs Temp Pulse Resp BP BP Pulse Ox O2 Del Method 07/15/22 07:37 36.5 C 70 16 100/63 96 Room Air 07/14/22 21:20 36.8 C 70 16 115/65 98 Room Air Diagnostic Findings Laboratory Results WBC 5.96 K/ul (4.8-10.8) 07/15/22 07:39 RBC 4.12 M/uL (4.63-6.08) L 07/15/22 07:39 Hgb 12.4 g/dl (14.0-18.0) L 07/15/22 07:39 Hct 35.9 % (40.1-51.0) L 07/15/22 07:39 MCV 87.1 fL (80.0-100.0) 07/15/22 07:39 MCH 30.1 pg (25.0-34.0) 07/15/22 07:39 MCHC 34.5 g/dL (32.0-36.0) 07/15/22 07:39 RDW Std Deviation 39.4 fL (36.4-46.3) 07/15/22 07:39 RDW Coeff of Alhaji 12.3 % (11.5-14.5) 07/15/22 07:39 Plt Count 198 K/uL (130-400) 07/15/22 07:39 MPV 9.0 fL (9.4-12.4) L 07/15/22 07:39 Immature Gran % (Auto) 0.5 % 07/15/22 07:39 Neut % (Auto) 66.8 % 07/15/22 07:39 Lymph % (Auto) 14.4 % 07/15/22 07:39 [place] % (Auto) 12.1 % 07/15/22 07:39 Eos % (Auto) 5.5 % 07/15/22 07:39 Baso % (Auto) 0.7 % 07/15/22 07:39 Neut # (Auto) 3.98 K/uL (1.4-6.5) 07/15/22 07:39 Lymph # (Auto) 0.86 K/uL (1.2-3.4) L 07/15/22 07:39 [place] # (Auto) 0.72 K/uL (0.24-0.82) 07/15/22 07:39 Eos # (Auto) 0.33 K/uL (0-0.50) 07/15/22 07:39 Baso # (Auto) 0.04 K/uL (0-0.2) 07/15/22 07:39 Immature Gran # (Auto) 0.03 K/uL (0.00-0.02) H 07/15/22 07:39 Sodium 136 mmol/L (136-145) 07/15/22 07:39 Potassium 4.0 mmol/L (3.5-5.1) 07/15/22 07:39 Chloride 102 mmol/L (98-107) 07/15/22 07:39 Carbon Dioxide 29 mmol/L (21-32) 07/15/22 07:39 Anion Gap 5 (3-11) 07/15/22 07:39 BUN 19 mg/dl (6-23) 07/15/22 07:39 Creatinine 1.06 mg/dl (0.6-1.4) 07/15/22 07:39 Est Cr Clr Drug Dosing 56.8 ml/min 07/15/22 07:39 Est GFR ( Amer) 80.9 ml/min 07/15/22 07:39 Est GFR (Non-Af Amer) 69.8 ml/min 07/15/22 07:39 BUN/Creatinine Ratio 17.9 (10-20) 07/15/22 07:39 Glucose 100 mg/dl (70-99(Fasting)) H 07/15/22 07:39 Lactate 0.9 mmol/L (0.4-2.0) 07/14/22 11:12 Calcium 8.9 mg/dl (8.5-10.1) 07/15/22 07:39 Magnesium 1.9 mg/dl (1.7-2.4) 07/14/22 11:12 Total Bilirubin 0.6 mg/dl (0.2-1.0) 07/15/22 07:39 Direct Bilirubin 0.1 mg/dl (0-0.2) 07/14/22 11:12 AST 15 U/L (13-39) 07/15/22 07:39 ALT 13 U/L (7-52) 07/15/22 07:39 Alkaline Phosphatase 67 U/L (34-104) 07/15/22 07:39 C-Reactive Protein 2.69 mg/dl (0-0.5) H 07/15/22 07:39 Total Protein 5.7 gm/dl (6.0-8.3) L 07/15/22 07:39 Albumin 3.2 gm/dl (3.4-5.0) L 07/15/22 07:39 Globulin 2.5 gm/dl (2.5-4.0) 07/15/22 07:39 Albumin/Globulin Ratio 1.3 (0.9-2) 07/15/22 07:39 Procalcitonin < 0.05 ng/ml (0-0.5) 07/14/22 11:12 SARS-CoV-2, RNA, NAAT NEGATIVE (NEGATIVE) 07/14/22 15:06 Impressions Chest X-Ray 07/14/22 11:01 IMPRESSION: No acute process within the chest. Pelvis CT 07/14/22 11:20 IMPRESSION: 1. There is a large skin ulceration within the right lateral hip at the previous location of the patient's subcutaneous mass. There is enhancement at the rim of the skin ulceration which contains a small amount of debris/fluid. However, no definite residual mass identified. 2. No loculated fluid collections to suggest an abscess. 3. No evidence for osteomyelitis. 4. Mild hyperenhancement and mild enlargement of the right inguinal/pelvic sidewall lymph nodes compared to the prior study. This could be reactive or represent developing metastatic disease. Follow-up recommended. Lower Extremity CT 07/14/22 11:21 IMPRESSION: 1. No acute osseous abnormality. 2. Soft tissue wound of the posterior medial upper calf with probable associated cellulitis. No abscess. Resident Activity Tracking Resident Involvement: Resident Care Provided Care Provided: Adult [facility] Medicine (1) Cutaneous T-cell lymphoma Lymphoma site: extranodal excluding spleen and other solid organs Qualified Code(s): C84.A9 - Cutaneous T-cell lymphoma, unspecified, extranodal and solid organ sites
[2022-07-15] MEDS ORDERED: PROPOFOL IV EMULSION 10 MG/ML 20 ML VIAL IV ONE (08:16)
[2022-07-15] MEDS ORDERED: ONDANSETRON INJ 2 MG/ML 2 ML VIAL ONE (08:16)
[2022-07-15] MEDS ORDERED: MIDAZOLAM HCL 1 MG/ML 2ML VIAL ONE (08:16)
[2022-07-15] MEDS ORDERED: fentaNYL citrate 100 MCG/2 ML VIAL ONE ×2 (08:16→10:02)
[2022-07-15] MEDS ORDERED: DEXAMETHASONE SOD INJ 4 MG/ML VIAL ONE (08:16)
--- NOTE | 2022-07-15 08:22 | Anesthesiology Consultation ---
Date of Service July 15, 2022 Assessment & Plan (1) Encounter for pre-operative examination: Chart Review Chart Review: Acceptable Risk for Surgery and Patient NOT seen in Pre Admission Testing Consults Requested none History Surgery Operation Date: 07/15/22 09:40 Proposed Procedures p Debridement Right Side Wound Upper Leg Placement of Wound Vac and Debridement Left Lower Leg - Karen Dickerson MD Height/Weight Height: 5 ft 6 in Weight: 75.2 kg Allergies Allergy/AdvReac Type Severity Reaction Status Date / Time No Known Allergies Allergy Verified 07/11/22 11:07 Medications Home Medications Medication Instructions Recorded Confirmed Last Taken docusate sodium 100 mg capsule 100 mg PO DAILY 04/24/19 07/14/22 Unknown (Dulcolax Stool Softener (docusate)) omeprazole 20 mg capsule,delayed 20 mg PO DAILY #90 caps 05/25/20 07/14/22 Unknown release doxepin 10 mg capsule 20 mg PO DAILY #60 caps 08/23/20 07/14/22 Unknown triamcinolone acetonide 0.1 % 1 applic topical BID PRN Rash #1 g 10/21/20 07/14/22 Unknown topical cream acetaminophen 500 mg tablet 1,000 mg PO Q6H PRN Fever Or Pain 11/08/20 07/14/22 Unknown (Tylenol Extra Strength) atorvastatin 20 mg tablet 20 mg PO DAILY #90 tabs 07/11/21 07/14/22 Unknown lisinopril 10 mg tablet 10 mg PO DAILY #90 tabs 10/12/21 07/14/22 Unknown tamsulosin 0.4 mg capsule 0.4 mg PO HS 30 days #90 caps 10/12/21 07/14/22 Unknown amlodipine 10 mg tablet 10 mg PO DAILY #90 tabs 03/20/22 07/14/22 Unknown ondansetron HCl 8 mg tablet 8 mg PO Q8H PRN Nausea 06/01/22 07/14/22 Unknown oxycodone 5 mg capsule 5 mg PO Q8H PRN Pain 06/01/22 07/14/22 Unknown prochlorperazine maleate 10 mg 10 mg PO Q6H PRN Nausea 06/01/22 07/14/22 Unknown tablet (Compazine) vitamin C 500 mg-multivitamin with 1 tab PO DAILY 06/01/22 07/14/22 Unknown minerals chewable tablet (Emergen-C) silver sulfadiazine 1 % topical 1 applic topical TID #85 grams 06/19/22 07/14/22 Unknown cream (Silvadene) metronidazole 1 % topical gel 1 applic topical BID #60 grams 07/11/22 07/14/22 Unknown (Metrogel) Active Medications Generic Name Dose Route Start Last Admin Trade Name Freq PRN Reason Stop Dose Admin Hydromorphone HCl 0.5 mg 07/14/22 18:44 07/15/22 03:13 Hydromorphone Inj 0.5 Mg/0.5 Ml Syr IV 07/28/22 18:43 0.5 mg Q6H PRN Administration Pain 6-10, 3rd line Piperacillin Sod/Tazobactam 115 mls @ 28.75 mls/hr 07/14/22 19:15 07/15/22 07:15 Sod 3.375 gm/ Dextrose IV 07/21/22 19:14 Infused Q8H PAN Infusion Protocol Daptomycin 250 mg/ Syringe 5 mls @ 2.5 mls/min 07/14/22 19:15 07/14/22 19:54 IV 07/21/22 19:14 2.5 mls/min Q24H PAN Administration Protocol Lactated Ringer's 1,000 mls @ 80 mls/hr 07/14/22 18:44 07/15/22 07:15 Lr IV 08/13/22 18:43 80 mls/hr .[id number] PAN Administration Oxycodone HCl 5 mg 07/14/22 18:44 07/14/22 19:21 Oxycodone Hcl Ir 5 Mg Tab (Immediate Release) PO 07/28/22 18:43 5 mg Q8H PRN Administration Pain, 2st line Tamsulosin HCl 0.4 mg 07/14/22 21:00 07/14/22 20:00 Tamsulosin Hcl 0.4 Mg Cap PO 08/13/22 20:59 0.4 mg HS PAN Administration Past Medical History Medical History Acid reflux disease Arthritis Backache Benign hypertension Elevated blood pressure reading Elevated blood sugar level Encounter for screening for diabetes mellitus Encounter for screening for lipid disorder External hemorrhoids Hearing difficulty High serum chloride History of chemotherapy Brentuximab (01/03/2019 - 05/30/2019 x 8 cycles) Brentuximab (11/07/2021 - Present x 6 cycles thus far) Hypercholesterolemia Hyperlipidemia Hypertension Itching Knee pain Knee sprain Muscle cramping Psoriasis Rash and nonspecific skin eruption Screening for prostate cancer Sepsis Vestibular schwannoma Past Family History Family History Mother Myocardial infarction Father Myocardial infarction Sister Cancer, Onset Age: 70 do not know what type Denies family history of Ovarian cancer Prostate cancer Breast cancer Colorectal cancer Past Surgical History Surgical History History of hemorrhoidectomy History of hernia repair Hx of lymph node biopsy Social History Smoking Status: Never smoker Smoking cigarettes per day: 30 Hx Alcohol Use: Yes Alcohol type: wine alcohol intake frequency: other Hx Substance Use: No substance use type: does not use Physical Exam Vital Signs Last Vital Signs Temp 36.5 C 07/15/22 07:37 Pulse 70 07/15/22 07:37 Resp 16 07/15/22 07:37 BP 100/63 07/15/22 07:37 Pulse Ox 96 07/15/22 07:37 O2 Del Method 07/15/22 07:37 Testing Laboratory Results 07/15/22 07:39 07/14/22 16:01 Gram Stain - Final Hip,Right Wound Culture - Preliminary Gram negative bacilli Electrocardiogram Date: 07/14/21 DICTATED BY:Jr Aguirre MD Test Reason : Blood Pressure : / mmHG Vent. Rate : 097 BPM Atrial Rate : 097 BPM P-R Int : 158 ms QRS Dur : 092 ms QT Int : 344 ms P-R-T Axes : 049 012 023 degrees QTc Int : 436 ms Poor data quality, interpretation may be adversely affected Normal sinus rhythm Normal ECG When compared with ECG of 07-OCT-2009 11:57, Vent. rate has increased BY 34 BPM QT has lengthened Confirmed by Jr Aguirre ([id number]) on 07/15/2021 3:30:45 PM Referred By: REFERRED SELF Confirmed By:Jr Aguirre Signed By: Chest X-Ray Date: 07/14/22 XR chest 1V portable HISTORY: Sepsis COMPARISON: Chest 07/14/2021. FINDINGS: No pneumothorax. No pleural effusions. The heart is normal in size. A left subclavian Port-A-Cath remains at the SVC. No new focal lung consolidations to suggest a pneumonia. No evidence for pulmonary edema. Mild elevation the right hemidiaphragm, unchanged. IMPRESSION: No acute process within the chest. ACT 112: Negative or not required by law. Electronically signed by: Suman Tolbert M.D. 07/14/2022 12:09 PM Dictated:07/14/221205 Transcribed: 07/14/221205 Echocardiogram Date: 05/01/22 EF: 60-65 LV Function: normal Valvular Disease: + no significant valvular disease
[2022-07-15] MEDS ORDERED: PHENYLEPHRINE 100MCG/ML 5ML SYR IV PRN (08:23)
[2022-07-15] MEDS ORDERED: MEPERIDINE HCL 25 MG/ML CARP/VIAL IV PRN (08:23)
[2022-07-15] MEDS ORDERED: ATROPINE SULFATE 0.1 MG/ML 10ML SYR IV PRN (08:23)
[2022-07-15] MEDS ORDERED: ePHEDrine sulfate 50 MG/ML AMP IV PRN (08:23)
[2022-07-15] MEDS ORDERED: ONDANSETRON INJ 2 MG/ML 2 ML VIAL IV PRN (08:23)
[2022-07-15] MEDS ORDERED: LABETALOL HCL IV 5 MG/ML 20ML IV PRN (08:23)
[2022-07-15 08:38] LABS: Albumin Globulin Ratio 1.3 (0.9-2); Albumin Level 3.2 gm/dl (3.4-5.0); BUN Creatinine Ratio 17.9 (10-20); Bilirubin,Total 0.6 mg/dl (0.2-1.0); C Reactive Protein 2.69 mg/dl (0-0.5); Calcium 8.9 mg/dl (8.5-10.1); Creatinine Clr Calc Pharmacy 56.8 ml/min; Est GFR (African American) 80.9 ml/min; Est GFR (Non-African American) 69.8 ml/min; Globulin 2.5 gm/dl (2.5-4.0); Total Protein 5.7 gm/dl (6.0-8.3)
[2022-07-15] MEDS: DOXEPIN HCL 10 MG CAPSULE PO SCH (08:53)
[2022-07-15] MEDS ORDERED: lisinopril 10 MG TAB PO SCH (09:00)
[2022-07-15] MEDS ORDERED: amLODIPine BESYLATE 5 MG TAB PO SCH (09:00)
--- NOTE | 2022-07-15 09:08 | History & Physical Bridge Note ---
Date of Service July 15, 2022 History & Physical Bridge Note I have examined the patient, reviewed the History & Physical and in the interval since the performance of the History & Physical I have noted the following changes of clinical significance: no changes noted
[2022-07-15] MEDS: ENOXAPARIN INJ 40 MG/0.4 ML SYR SQ SCH (09:22)
[2022-07-15] MEDS ORDERED: BACITRACIN OINT 15 GM TUBE ONE (09:45)
--- NOTE | 2022-07-15 09:48 | Post Operative Brief Note ---
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 CHRONIC WOUND ON RIGHT HIP, AND LEFT LOWER LEG Post-Op Diagnosis: Radiation necrosis right hip and left lower leg CHRONIC WOUND ON RIGHT HIP, AND LEFT LOWER LEG I identified the patient and participated in the time-out.: Yes Procedure Operation Date: 07/15/22 09:40 Actual Procedures p Debridement Right Side Wound RIGHT THIGH, and Debridement WOUND Left Lower Leg(Bilateral) - Karen Dickerson MD Surgeon Karen Dickerson MD Tie In Hand SUPPORT MERCHANDISER Estimated Blood Loss 3 Findings Consistent with Post-Op Diagnosis CHRONIC WOUND ON RIGHT THIGH WITH NECROTIC TISSUE, , STAGE 4, CHRONIC WOUND ON LEFT LOWER LEG WITH NECROTIC TISSUE, STAGE V4, Fluids 600ML Specimens NECROYIC TISSUE ON RIGHT THIGH, Anesthesia Type General Complications NONE Disposition Accompanied Patient To Recovery: Yes
[2022-07-15] MEDS: fentaNYL citrate 100 MCG/2 ML VIAL IV PRN ×4 (10:02→10:17)
[2022-07-15] MEDS ORDERED: HYDROmorphone INJ 1 MG/ML SYRINGE ONE (10:26)
[2022-07-15] MEDS: HYDROmorphone INJ 1 MG/ML SYRINGE IV PRN ×4 (10:27→10:45)
--- NOTE | 2022-07-15 10:39 | Anesthesiology Progress Note ---
Date of Service July 15, 2022 Anesthesia Post Procedure Vital Signs Vital Signs: Temp Pulse Pulse Resp BP BP BP 07/15/22 10:21 36.3 C L 94 H 18 117/57 L 07/15/22 07:00 07/15/22 07:37 36.5 C 70 16 100/63 07/14/22 21:20 36.8 C 70 16 115/65 07/14/22 18:49 36.5 C 65 18 129/70 07/14/22 17:00 68 16 107/56 L 07/14/22 16:00 73 18 07/14/22 16:00 111/60 07/14/22 15:30 71 18 07/14/22 15:30 110/65 07/14/22 15:00 69 19 07/14/22 15:00 115/66 07/14/22 14:30 76 18 07/14/22 14:30 110/60 07/14/22 14:09 76 19 07/14/22 14:09 111/66 07/14/22 14:00 80 17 111/66 07/14/22 13:43 80 18 07/14/22 13:00 77 16 07/14/22 12:45 78 18 07/14/22 10:39 07/14/22 10:41 36.5 C 91 H 16 104/64 Pulse Ox O2 Del Method O2 Flow Rate 07/15/22 10:21 97 Oxymask 6 07/15/22 07:00 Room Air 07/15/22 07:37 96 Room Air 07/14/22 21:20 98 Room Air 07/14/22 18:49 97 Room Air 07/14/22 17:00 97 Room Air 07/14/22 16:00 97 07/14/22 16:00 07/14/22 15:30 07/14/22 15:30 07/14/22 15:00 97 07/14/22 15:00 07/14/22 14:30 96 07/14/22 14:30 07/14/22 14:09 90 07/14/22 14:09 07/14/22 14:00 07/14/22 13:43 07/14/22 13:00 96 07/14/22 12:45 97 07/14/22 10:39 Room Air 07/14/22 10:41 98 Room Air Pain Intensity Right Hip: Pain Intensity: 2 Right Lower Leg: Pain Intensity: 3 Transfer of Care Handoff Completed per policy Notes Mental Status: alert / awake / arousable Patient Amnestic to Procedure: Yes Nausea / Vomiting: adequately controlled Pain: adequately controlled Airway Patency, RR, SpO2: stable & adequate BP & HR: stable & adequate Hydration State: stable & adequate Anesthetic Complications: no major complications apparent and Pt Satisfied with anesthetic care
--- NOTE | 2022-07-15 12:58 | Operative Report (OR) ---
DATE OF PROCEDURE: 07/15/2022. PREOPERATIVE DIAGNOSES: Chronic wound on the right thigh and chronic wound on the left lower leg. POSTOPERATIVE DIAGNOSES: Chronic wound on the right thigh and chronic wound on the left lower leg. OPERATION: 1. Debridement, chronic wound on the right thigh, stage IV, wound size about 10 x 10 cm. 2. Debridement of wound on the left lower leg, stage IV, size about 3 x 4 cm. SURGEON: Karen Dickerson MD. ANESTHESIA: General. ESTIMATED BLOOD LOSS: About 3 mL. FINDINGS: Chronic wound with necrosis tissue on right thigh, wound deep to muscle layer, stage IV an d chronic wound with necrosis, left lower leg, deep to muscle layer, stage IV, wound size about 3 x 4 cm. COMPLICATIONS: None. INDICATIONS FOR THE PROCEDURE: This is a 72-year-old gentleman with chronic wound on the right thigh and left lower leg after 10 times of radiation treatment and the patient was admitted to the [facility] overnight. I recommended to do debridement of chronic wound on the right thigh and debridement of chronic wound on the left lower leg. I did talk to the patient about the benefit, risk, alternate pr ocedure. I indicated the risks may include, but not limited to, such as bleeding, infection, sepsis and healing of the wound may need more procedure. The patient understands. The patient signed [facility] med consent and I answered all questions. DETAILS OF PROCEDURE: After we identified the patient and verified the procedure, we brought the pat ient to the OR, put the patient in the supine position on the OR table. The patient received IV prop hylactic antibiotic and the patient received general anesthesia without difficulty. The right-sided thigh and left lower leg were prepped and draped in routine sterile fashion. After timeout, I re-exam ined the patient's wound on the right side, the size about 10 x 10 cm with chronic necrotic tissue on the center of the wound. I used a 15-blade to completely removal all the necrotic tissue and d eep to the muscle layer. Once I completely removed all of the necrotic tissue and the wound looked f resh and at this moment, based on the patient had significant redness on the skin around his wound, i t was not feasible for the Wound VAC, so I decided to use 4 x 4 with normal saline wet-to-dry for pac elma the wound. We removed the necrotic tissue sent to Pathology. Also, we did wound culture on the right thigh. Now, we moved onto another wound on the left lower leg wound. The left lower leg woun d size about 3 x 4 cm and there was some necrotic tissue on the center of the wound. Again, I used a 15 blade to completely remove all the necrotic tissue deep to the muscle layer. The wound was stage IV. Once I removed all the necrosis tissue, the wound looked fresh. Also, we sent as wound culture. Then, we packed with normal saline and 4 x 4, put the dressing on. The patient tolerated the proce dure well. All instrument, needle and sponge counts were correct x2 at the end of the case. The pat ient was transferred to recovery room in stable condition. After the procedure, I did talk to the denis stevenson about the OR finding and the procedure we did, the patient understood. Job ID: [id number]
[2022-07-15] MEDS ORDERED: LACTATED RINGER'S 1,000 ML IV ONE (13:50)
--- NOTE | 2022-07-15 17:38 | Billing Data ---
Date of Service July 15, 2022 Coding Level of Care Code 55497 Subseq Obs Care Lvl 3
[2022-07-15] MEDS: oxyCODONE HCL IR 5 MG TAB (IMMEDIATE RELEASE) PO PRN (21:10)
[2022-07-15] MEDS: TAMSULOSIN HCL 0.4 MG CAP PO SCH (21:25)
[2022-07-16] MEDS: PIPERACILLIN/TAZOBACTAM 3.375 GM in DEXTROSE 5% 100 ML IV SCH ×3 (03:35→18:49)
[2022-07-16] MEDS: oxyCODONE HCL IR 5 MG TAB (IMMEDIATE RELEASE) PO PRN ×2 (06:18→19:08)
[2022-07-16 07:22] LABS: Basophils # (auto) 0.04 K/uL (0-0.2); Basophils % (auto) 0.7 %; Eosinophils # (auto) 0.38 K/uL (0-0.50); Eosinophils % (auto) 6.6 %; Hematocrit (blood only) 36.1 % (40.1-51.0); Hemoglobin 12.4 g/dl (14.0-18.0); Immature Granulocytes # (auto) 0.02 K/uL (0.00-0.02); Immature Granulocytes % (auto) 0.3 %; Lymphocytes # (auto) 0.92 K/uL (1.2-3.4); Mean Corpuscular Hemoglobin 30.1 pg (25.0-34.0); Mean Corpuscular Hgb Conc 34.3 g/dL (32.0-36.0); Mean Corpuscular Volume 87.6 fL (80.0-100.0); Mean Platelet Volume 8.7 fL (9.4-12.4); Monocytes % (auto) 10.4 %; Neutrophils # (auto) 3.79 K/uL (1.4-6.5); Platelet Count 190 K/uL (130-400); RDW Coefficient of Variation 12.3 % (11.5-14.5); RDW Standard Deviation 39.7 fL (36.4-46.3); Red Blood Count 4.12 M/uL (4.63-6.08); White Blood Count 5.75 K/ul (4.8-10.8)
[2022-07-16 07:41] LABS: Albumin Globulin Ratio 1.3 (0.9-2); Albumin Level 3.3 gm/dl (3.4-5.0); BUN Creatinine Ratio 17.8 (10-20); Bilirubin,Total 0.4 mg/dl (0.2-1.0); C Reactive Protein 2.66 mg/dl (0-0.5); Calcium 8.7 mg/dl (8.5-10.1); Creatinine Clr Calc Pharmacy 56.3 ml/min; Globulin 2.6 gm/dl (2.5-4.0); Potassium 4.1 mmol/L (3.5-5.1); Total Protein 5.9 gm/dl (6.0-8.3)
--- NOTE | 2022-07-16 08:00 | Hospitalist Progress Note ---
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 - Surgical debridement 07/15, cultures indicate E.coli - Patient remains afebrile and w/o leukocytosis or electrolyte abnormality, CRP 2.66 07/16 - Hgb 12.4/Hct 36.1 07/15, CMP unremarkable - Negative MRSA nares --- Discontinue Zosyn, start Augmentin 875mg PO BID for 7 days for transition to outpatient --- Wound nurse consulted, anticipate evaluation Sunday Cutaneous T-cell Lymphoma - Managed by [facility] oncology 05/30/2022: Keytruda initiated given increased number of lesions, was scheduled for Dose #3 07/14 (did not receive), was sent to ER by oncology center 07/05/2022: Completed radiation therapy to right thigh and left lower leg, 4500 cGy - Continue outpatient dose of oxycodone - Continue outpatient Flagyl gel --- Dose of Keytruda scheduled outpatient Sunday GERD Continue PPI Hypertension Continue Lisinopril 10 mg daily Continue Amlodipine 10 mg daily Hyperlipidemia Continue atorvastatin 20 mg daily (2) Open wound of left hip: (3) Cellulitis: (4) Cutaneous T-cell lymphoma: (5) Hyperlipidemia: (6) Hypertension: (7) Acid reflux disease: Plan Diet:Regular IVF: 1 L bolus LR @ 1400 d/t hypotension DVT PPx: Lovenox Dispo:Med/Surg Code Status: Full Admission and Anticipated Discharge Date Admission Date: July 14, 2022 Supervising Physician Co-Signing Physician Notes I personally examined the patient and verified all smith points of history and exam, discussed case, and agree with decision making with Dr Landry Feeling pretty good overall. Would like to go home. vitals noted nad heent nc at mmm breathing unlabored no accessory muscle use good effort. Skin shows no rashes no pallor or icterus. Wounds dressed. cutaneous Tcell lymphoma w necrotic tissue and surrounding cellulitis - abx, post op, wound care, supportive care, time. Discussed with patient the time I saw him that a nearly pansensitive E. colianticipating an easy transition to p.o. antibiotics at home. Later, he is starting to show probable Pseudomonas species on a separate culturewhich obviously will complicate things until sensitivities are back. Fortunately his prior Pseudomonas was pansensitive as wellso it is likely he will be able to go home on a p.o. quinolone. We also discussed needing surgery to be satisfied that his wounds and overall situation is okay to go home from their perspective, and definitely need the wound care team to evaluate and build a plan for local wound care/pipeline him for follow- up. hypotension - suspect situational - fortunately asymptomatic. 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 07/16/22: - Hypotension post op, asymptomatic, resolved AM - 6/10 pain this morning, primarily in right leg (untreated T-cell lesion), minimal discomfort in surgically debrided areas - Wound drainage diminished - No fevers, chills, abdominal pain, chest pain, headaches, or shortness of breath Review of Systems Review of Systems: As per HPI. Physical Exam Physical Exam: Gen: NAD, alert, interactive Resp:Non-labored, no wheezing/rhonchi/rales, CTAB CV:RRR, normal S1/S2, no M/R/G Abd: Soft, non-distended, no TTP, normoactive bowels, no masses Extr: 2+ dp bilaterally, no edema * Stage 4 cutaneous lesion on R thigh a/w purulent drainage * Stage 4 cutaneous lesion on L superior-medial calf w/o drainage * Cutaneous lesion (4-5 cm) on R superior-lateral calf w/ purulent drainage Results & Data Results & Data ([facility]) Vital Signs (Past 12 Hours) Vital Signs Temp Pulse Resp BP BP Pulse Ox O2 Del Method 07/16/22 07:35 36.9 C 82 16 120/66 96 Room Air 07/16/22 04:00 36.6 C 70 16 108/66 98 Room Air 07/15/22 21:47 36.8 C 88 16 123/69 96 Room Air Resident Activity Tracking Resident Involvement: Resident Care Provided Care Provided: Adult Hospital Medicine (1) Cutaneous T-cell lymphoma Lymphoma site: extranodal excluding spleen and other solid organs Qualified Code(s): C84.A9 - Cutaneous T-cell lymphoma, unspecified, extranodal and solid organ sites
[2022-07-16] MEDS: ENOXAPARIN INJ 40 MG/0.4 ML SYR SQ SCH (09:16)
[2022-07-16] MEDS ORDERED: INFLUENZA VACCINE HIGH DOSE PF 65+ 0.7 ML SYR IM ONE (09:35)
[2022-07-16] MEDS: DOXEPIN HCL 10 MG CAPSULE PO SCH (13:14)
--- NOTE | 2022-07-16 16:20 | Billing Data ---
Date of Service July 16, 2022 Coding Level of Care Code 29125 Subseq Hosp Care Lvl 3
[2022-07-16] MEDS ORDERED: AMOXICILLIN/CLAVULANATE 875 MG TAB PO SCH (17:00)
[2022-07-16] MEDS: TAMSULOSIN HCL 0.4 MG CAP PO SCH (20:40)
[2022-07-17] MEDS: PIPERACILLIN/TAZOBACTAM 3.375 GM in DEXTROSE 5% 100 ML IV SCH ×2 (02:31→12:02)
[2022-07-17] MEDS: oxyCODONE HCL IR 5 MG TAB (IMMEDIATE RELEASE) PO PRN ×2 (04:56→16:08)
--- NOTE | 2022-07-17 06:50 | Hospitalist Progress Note ---
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 - Surgical debridement 07/15, cultures indicate E.coli - Patient remains afebrile and w/o leukocytosis or electrolyte abnormality, CRP 2.66 07/16 - Hgb 12.4/Hct 36.1 07/15, CMP unremarkable - Negative MRSA nares --- Wound nurse consulted, anticipate evaluation Sunday Continue Pip/Tazo (Zosyn) as patient's wound cultures grew probable pseudomonas @ 1430. Will stop Augmentin. Cutaneous T-cell Lymphoma - Managed by [facility] oncology 05/30/2022: Keytruda initiated given increased number of lesions, was scheduled for Dose #3 07/14 (did not receive), was sent to ER by oncology center 07/05/2022: Completed radiation therapy to right thigh and left lower leg, 4500 cGy - Continue outpatient dose of oxycodone - Continue outpatient Flagyl gel --- Dose of Keytruda scheduled outpatient Sunday GERD Continue PPI Hypertension Continue Lisinopril 10 mg daily Continue Amlodipine 10 mg daily Hyperlipidemia Continue atorvastatin 20 mg daily (2) Open wound of left hip: (3) Cellulitis: (4) Cutaneous T-cell lymphoma: (5) Hyperlipidemia: (6) Hypertension: (7) Acid reflux disease: Plan Diet:Regular IVF: 1 L bolus LR @ 1400 d/t hypotension DVT PPx: Lovenox Dispo:Med/Surg Code Status: Full Admission and Anticipated Discharge Date Admission Date: July 16, 2022 Results & Data Results & Data ([facility]) Vital Signs (Past 12 Hours) Vital Signs Temp Pulse Resp BP Pulse Ox O2 Del Method 07/16/22 21:07 37.0 C 80 16 114/67 98 Room Air (1) Cutaneous T-cell lymphoma Lymphoma site: extranodal excluding spleen and other solid organs Qualified Code(s): C84.A9 - Cutaneous T-cell lymphoma, unspecified, extranodal and solid organ sites
[2022-07-17] MEDS: DOXEPIN HCL 10 MG CAPSULE PO SCH (08:43)
[2022-07-17] MEDS: ENOXAPARIN INJ 40 MG/0.4 ML SYR SQ SCH (08:43)
--- NOTE | 2022-07-17 09:02 | Radiation OncologyConsultation ---
Date of Consultation July 17, 2022 Assessment & Plan (1) Cutaneous T-cell lymphoma: Lymphoma site: extranodal excluding spleen and other solid organs Qualified Code(s): C84.A9 - Cutaneous T-cell lymphoma, unspecified, extranodal and solid organ sites Plan This is a 72-year-old gentleman well-known to our clinic from prior areas of treatment. Most recently completed therapy to the right thigh and left calf. Unfortunately developed large areas of necrotic tissue. He was admitted on 07/15/2022. He underwent debridement. He is steadily recuperating. He is doing very well. He has minimal discomfort in the area of debridement. Continued pain in the right calf. The lesion continues to become larger and has an open ulceration which is weeping. We had stimulated him and he was ready to begin treatment today. He does want to go forward with starting treatment. History of Present Illness Reason for Consultation: To begin treatment to lesion of his right calf Requesting Physician: Hospitalists Attending Physician: Deb Cantu MD History of Present Illness 03/07/2006. Status post stereotactic radiation surgery to the left ear for acoustic neuroma. He received 1250 cGy. 10-year history of cutaneous T-cell lymphoma. Topical treatment. 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 01/03/2019-05/31/2019. Systemic treatment with Brentuximab Development of a left chin lesion. 09/23/2020. Biopsy showing cutaneous T-cell lymphoma. 12/15/2020. Status post completion of radiation therapy to the left chin. He received 5040 cGy. Enlarging left posterior back lesion. 03/07/2021. PET/CT. New metabolically active skin thickening left posterior chest wall. 03/09/2021. Status post biopsy skin of mid back. Cutaneous T-cell lymphoma with prominent epidermotropism of large lymphocytes. 05/18/2021. Status post completion of radiation therapy to the back. He received 5040 cGy. June 2021. Development of an enlarging lesion of the left lateral buttock area. 06/20/2021. PET/CT. Metabolically active skin nodule left lateral gluteal region. 08/10/2021. Status post completion of radiation therapy to the left lateral gluteal region He received 4500 cGy Slow wound healing and treatment at wound clinic. 11/02/2021. PET/CT. Decreased skin thickening and FDG avidity in the lesion of the left gluteal region. FDG uptake of left inguinal region. 11/07/2021. Reinitiation of systemic treatment with brentuximab vedotin. Plan for 10 cycles. 12/30/2021. Biopsy gluteal region. Benign. 12/2021. Development of lesion of the left anterior lower extremity. 01/25/2022 PET/CT. Resolution of left inguinal node. Resolution of the FDG avidity of the left gluteal region. New activity in the distal anterior left lower extremity. 02/01/2022. Biopsy of left lower extremity lesion shows T-cell lymphoma. Two adjacent lesions. 03/29/2022. Status post completion of radiation therapy to the left lower extremity. He received 3750 cGy. 05/2022. Development of a new lesion of the right upper posterior thigh. Lesion of the left lower extremity posterior calf area. 05/10/2022. PET/CT. Development of multiple FDG avid dermal/subcutaneous lesions compared to January 25, 2022. Mild uptake bilateral axilla which has increased. 05/30/2022. Initiation of treatment with Keytruda. 07/05/2022. Status post completion of radiation therapy to the right thigh and left lower leg. He received 4500 to each area. 07/2022. Enlarging and painful mass of the right posterior lower extremity. 03/07/2006. LINAC based stereotactic radiosurgery for left acoustic neuroma. [facility]. 1250 cGy to 90% isodose line. 1 fraction. 01/03/2019 to 05/2019. Brentuximab for treatment of mycosis fungoides. 03/10/2020. PET/CT. IMPRESSION: 1. Minimal focal uptake associated with a right inguinal lymph node with SUV max slightly higher than hepatic maximal SUV value. Close follow-up is recommended. This could be reactive versus neoplastic. 2. Very minimal low level uptake corresponding to a focus of skin thickening in the posteromedial right thigh. Attention to follow-up is recommended. 09/15/2020. PET/CT. IMPRESSION: 1. New metabolically active subcutaneous nodule adjacent to the left anterior mandible concerning for a new focus of disease. 2. No metabolically active disease outside of the head/neck. 09/23/2020. 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 10/07/2020. Medical oncology follow-up with Dr. Olmos. Dr. Olmos is recommended definitive radiation therapy for cutaneous T-cell lymphoma of chin. 12/15/2020. Status post completion of radiation therapy to the left chin. He received 5040 cGy. Enlarging left posterior back lesion. 03/07/2021. PET/CT. New metabolically active skin thickening left posterior chest wall. 03/09/2021. Status post biopsy skin of mid back. Cutaneous T-cell lymphoma with prominent epidermotropism of large lymphocytes. 06/2021. Development of a skin lesion of the left lateral buttock area. This has rapidly increased in size. 06/20/2021. PET/CT. New 4 x 1 cm high metabolic intensity soft tissue thickening within the skin of the left lateral gluteal region, concerning for recurrence of neoplastic disease. 08/10/2021. Status post completion of radiation therapy to the left lateral gluteal region He received 4500 cGy. Slow wound healing and treatment at wound clinic. 11/02/2021. PET/CT. Decreased skin thickening and FDG avidity in the lesion of the left gluteal region. FDG uptake of left inguinal region. 11/07/2021. Reinitiation of systemic treatment with brentuximab with plan for 10 cycles. 12/30/2021. Biopsy gluteal region. Benign. 12/2021. Development of a left lower extremity lesions. 1 larger and 1 smaller adjacent lesion. 01/25/2022 PET/CT. Resolution of left inguinal node. Resolution of the FDG avidity of the left gluteal region. New activity in the distal anterior left lower extremity. 02/01/2022. Biopsy of lesion of the left lower extremity reveals T-cell lymphoma. 05/2022. Development of a new lesion of the right upper posterior thigh. Lesion of the left lower extremity posterior calf area. 05/10/2022. PET/CT. Development of multiple FDG avid dermal/subcutaneous lesions compared to January 25, 2022. Mild uptake bilateral axilla which has increased. 05/30/2022. Initiation of treatment with Keytruda. 07/05/2022. Status post completion of radiation therapy to the right thigh and left lower extremity. He received 4500 cGy to each area. 07/2022. Enlarging and painful mass of the right posterior lower extremity. 07/15/2022. Hospital admission due to necrotic wounds of the right thigh and left calf. 07/15/2022. Debridement, chronic wound of the left right thigh, stage IV, wound size 10 x 10 cm. Debridement of wound of the left lower leg, stage IV, size 3 x 4 cm. 07/17/2022. Radiation oncology consultation. Patient had been simulated and was ready to begin treatment today. He was seen at the bedside today he is doing very well. He would like to go forward with his radiation treatments to the right calf. Allergies Allergy/AdvReac Type Severity Reaction Status Date / Time No Known Allergies Allergy Verified 07/11/22 11:07 Home Medications Medication Instructions Recorded Confirmed Type docusate sodium 100 mg capsule 100 mg PO DAILY 04/24/19 07/14/22 History (Dulcolax Stool Softener (docusate)) omeprazole 20 mg capsule,delayed 20 mg PO DAILY #90 caps 05/25/20 07/14/22 Rx release doxepin 10 mg capsule 20 mg PO DAILY #60 caps 08/23/20 07/14/22 Rx triamcinolone acetonide 0.1 % 1 applic topical BID PRN Rash #1 g 10/21/20 07/14/22 History topical cream acetaminophen 500 mg tablet 1,000 mg PO Q6H PRN Fever Or Pain 11/08/20 07/14/22 History (Tylenol Extra Strength) atorvastatin 20 mg tablet 20 mg PO DAILY #90 tabs 07/11/21 07/14/22 Rx lisinopril 10 mg tablet 10 mg PO DAILY #90 tabs 10/12/21 07/14/22 Rx tamsulosin 0.4 mg capsule 0.4 mg PO HS 30 days #90 caps 10/12/21 07/14/22 Rx amlodipine 10 mg tablet 10 mg PO DAILY #90 tabs 03/20/22 07/14/22 Rx ondansetron HCl 8 mg tablet 8 mg PO Q8H PRN Nausea 06/01/22 07/14/22 History oxycodone 5 mg capsule 5 mg PO Q8H PRN Pain 06/01/22 07/14/22 History prochlorperazine maleate 10 mg 10 mg PO Q6H PRN Nausea 06/01/22 07/14/22 History tablet (Compazine) vitamin C 500 mg-multivitamin with 1 tab PO DAILY 06/01/22 07/14/22 History minerals chewable tablet (Emergen-C) silver sulfadiazine 1 % topical 1 applic topical TID #85 grams 06/19/22 07/14/22 Rx cream (Silvadene) metronidazole 1 % topical gel 1 applic topical BID #60 grams 07/11/22 07/14/22 Rx (Metrogel) cephalexin 500 mg capsule 500 mg PO BID 14 days #28 caps 07/17/22 Rx levofloxacin 750 mg tablet 750 mg PO DAILY 14 days #14 tabs 07/17/22 Rx Patient History Medical History (Updated 07/15/22 @ 09:08 by Suman Rosales MD) Acid reflux disease Anemia Arthritis Cutaneous T-cell lymphoma External hemorrhoids Hearing difficulty History of chemotherapy Brentuximab (01/03/2019 - 05/30/2019 x 8 cycles) Brentuximab (11/07/2021 - Present x 6 cycles thus far) Hyperlipidemia Hypertension Psoriasis 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 Surgical History History of hemorrhoidectomy History of hernia repair Hx of lymph node biopsy Family History Mother Myocardial infarction Father Myocardial infarction Sister Cancer, Onset Age: 70 do not know what type Denies family history of Ovarian cancer Prostate cancer Breast cancer Colorectal cancer Social History Smoking Status: Never smoker Tobacco Type: Cigarettes Age Started Using Tobacco: 16; Age Quit Using Tobacco: 40; packs per day: 1.5; Years Smoked: 24; Cigarettes Per Day: 30; Number of Years Since Quit: 30; Second Hand Exposure: No; Hx Alcohol Use: Yes Alcohol type: wine Hx Substance Use: No Preferred Language: Mohawk Communication Ability: Effective Visual Impairment: No Limitations Hearing Ability: Hard of Hearing Inspecting Engineer Required: No Beliefs That Will Affect Care: None marital status: Current Living Situation: Spouse current occupational status: employed 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 Mercer) Assistive Devices: Glasses Review of Systems Review of Systems: 13 point review of systems negative other than history of present illness. Physical Exam Constitutional: WD/WN, vitals as above ENMT: external ear and nose normal, oropharynx normal Ears: no hearing impairment Neck: trachea midline, no thyromegaly Respiratory: normal respiratory effort Cardiovascular: RRR, no murmur, no edema Musculoskeletal: Lesion of the right inner forearm is currently stable and showing healing. The lesion of the right lateral thigh has shown a good response to treatment. There is erythema of the periphery which is post radiation change. There is a 7 cm oval area of necrotic tissue with a crevice which has exudate. The lesion of the left calf is dry with a necrotic small area at the center. The new lesion of the right posterior lower extremity is raised and tense. There is an ulcerated area at the top. This is approximately 11 x 11 cm. Neurologic: Good strength and coordination of upper and lower extremities. Psychiatric: A+Ox3, euthymic affect Time Spent Midlevel I spent [5] minutes in preparation for this follow up evaluation including reviewing all the clinical records, reviewing laboratory studies, pathology reports and imaging results. I spent [15] minutes with direct face to face interaction with the patient and/or family including performing a physical exam and answering all questions. I spent [10] minutes documenting this patient's visit. Attending I have reviewed the midlevel provider's documentation and plan. I agree with the plan. The patient should be brought down today for radiation therapy as previously planned.
--- NOTE | 2022-07-17 09:23 | Surgery Progress Note ---
Date of Service July 17, 2022 Assessment & Plan (1) Open wound of left hip: Plan: pt is a 72 year-old male who presents with 10 days history open wound on right thigh and left lower leg after 10 times radiation treatment, IMP: chronic wound wound on right thigh, stage 4, chronic wound on left low leg, stage 4, Plan, I agree with medicine team admit pt to hospital, NPO, iv fluid, iv antibiotic, I recommend to do debridement the wound on right thigh, possible place wound vac, and debridement on the wound on left lower leg tomorrow morning. D/W benefits, risks and alternatives of the surgery, the risks - infection, bleeding, sepsis, unhealing wound, may need more surgery, pt understood, he agrees with surgery, he signed informed consent, I answered all questions, 07/17/2022 9:26AM F/U S/P debridement legs wound, doing better, no fever, wound culture reviewed, change dressing with wet to dry cover 4x4 gauze once a day, pt can be discharged today, F/U [facility] wound care center for dressing change, augmentin 500mg po bid x 7 days, F/U il prn, , sign off today, please call with questions, thanks, (2) Wound infection: Plan: see above Admission and Anticipated Discharge Date Admission Date: July 16, 2022 Supervising Physician Co-Signing Physician Notes I personally examined the patient and verified all smith points of history and exam, discussed case, and agree with decision making with Dr Landry Feeling pretty good overall. Would like to go home. vitals noted nad heent nc at mmm breathing unlabored no accessory muscle use good effort. Skin shows no rashes no pallor or icterus. Wounds dressed. cutaneous Tcell lymphoma w necrotic tissue and surrounding cellulitis - abx, post op, wound care, supportive care, time. Discussed with patient the time I saw him that a nearly pansensitive E. colianticipating an easy transition to p.o. antibiotics at home. Later, he is starting to show probable Pseudomonas species on a separate culturewhich obviously will complicate things until sensitivities are back. Fortunately his prior Pseudomonas was pansensitive as wellso it is likely he will be able to go home on a p.o. quinolone. We also discussed needing surgery to be satisfied that his wounds and overall situation is okay to go home from their perspective, and definitely need the wound care team to evaluate and build a plan for local wound care/pipeline him for follow- up. hypotension - suspect situational - fortunately asymptomatic. 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 07/16/22: - Hypotension post op, asymptomatic, resolved AM - 6/10 pain this morning, primarily in right leg (untreated T-cell lesion), minimal discomfort in surgically debrided areas - Wound drainage diminished - No fevers, chills, abdominal pain, chest pain, headaches, or shortness of breath 07/17/2022 9:21AM Dr. Dickerson F/U Debridement wounds on right and left legs, doing better, no fever, wound culture reviewed, Physical Exam Constitutional: WD/WN, vitals as above Eyes: PERRL, conjunctivae normal, anicteric sclerae Neck: trachea midline, no thyromegaly Respiratory: normal respiratory effort, lungs clear to auscultation Cardiovascular: RRR, no murmur, no edema Gastrointestinal (Abdomen): normal bowel sounds, soft, nontender, no hepatosplenomegaly Skin: the wound on right thigh is dry, less redness, the wound on left lower leg, is dry,less redness, Neurologic: patellar DTR's 2+ bilat, sensation intact Psychiatric: A+Ox3, euthymic affect Results & Data ([facility]) Vital Signs (Past 12 Hours) Vital Signs Temp Pulse Resp BP Pulse Ox O2 Del Method 07/17/22 07:32 36.9 C 75 16 123/77 95 Room Air
--- NOTE | 2022-07-17 14:54 | Medical Student Progress Note ---
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 - Surgical debridement 07/15, cultures indicate E coli - Patient remains afebrile and w/o leukocytosis or electrolyte abnormality, CRP 2.66 07/16 - Hgb 12.4/Hct 36.1 07/15, CMP unremarkable - Negative MRSA nares --- Wound nurse consulted, anticipate evaluation Sunday - discontinue pip-tazo (Zosyn) ; start oral Levaquin and Keflex for outpt - plan for discharge and follow up with wound care Cutaneous T-cell Lymphoma - Managed by [facility] oncology 05/30/2022: Keytruda initiated given increased number of lesions, was scheduled for Dose #3 07/14 (did not receive), was sent to ER by oncology center 07/05/2022: Completed radiation therapy to right thigh and left lower leg, 4500 cGy - Continue outpatient dose of oxycodone - Continue outpatient Flagyl gel --- Dose of Keytruda scheduled outpatient Sunday GERD Continue PPI Hypertension Continue Lisinopril 10 mg daily Continue Amlodipine 10 mg daily Hyperlipidemia Continue atorvastatin 20 mg daily (2) Open wound of left hip: (3) Cellulitis: (4) Cutaneous T-cell lymphoma: (5) Hyperlipidemia: (6) Hypertension: (7) Acid reflux disease: Plan Diet:Regular IVF:1 L bolus LR @ 1400 d/t hypotension DVT PPx:Lovenox Dispo:Med/Surg Code Status:Full Lymphoma site: extranodal excluding spleen and other solid organs Qualified Code(s): C84.A9 - Cutaneous T-cell lymphoma, unspecified, extranodal and solid organ sites Admission and Anticipated Discharge Date Admission Date: July 16, 2022 Subjective pt has no new complaints. Right hip feeling better but inspection machine tender. No fever, chills, n/v, diarrhea, dysuria. Review of Systems Review of Systems: as per hpi Physical Exam Physical Exam: GA: well appearing no acute distress Cardio: rrr no mrg Lungs: diffuse coarse sounds, lower lung field wheezes b/l ext: no edema; right thigh no erythema psych: appropriate mood and affect, euthymic, cooperative Results & Data ([facility]) Vital Signs (Past 12 Hours) Vital Signs Temp Pulse Resp BP Pulse Ox O2 Del Method 07/17/22 07:32 36.9 C 75 16 123/77 95 Room Air
--- NOTE | 2022-07-17 15:24 | Discharge Summary ---
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 Last 4 days worsening pain, purulence, and discharge from R lateral hip wound. L knee not changing, but chronically +purulence. No fevers, chills, sweats. Feels his left lower extremity wound has not changed but chronically has some purulent material. Right lower extremity wound has not changed, denies purulence. Pain is only worsening in his right hip wound and is increasing and currently a 6/10. Notes that the thickened erythema seems to be receding following radiation. No chest pain, chest pressure, shortness of breath, difficulty breathing. No antibiotic allergies. No medication allergies. Follows with [facility] [place] and radiation oncology. Medical History: Reviewed Medications: Reviewed Surgical History: Reviewed Allergies: Reviewed Social History: No tobacco products. No alochol use. Code Status: Surrogate DM would be Corin. Full Code. Admission Exam Per Admitting Provider General: A&Ox3. NAD. Cooperative. HEENT: Atraumatic, normocephalic. PERLAA. Eom Intact. Vision/hearing intact. Pulm: CTAB A&P. -wheezes, -rales, -rhonchi. Symmetrical chest rise. No increased work of breathing. No respiratory distress. Cardiac: RRR, -mrg. Radial pulses intact and symmetrical. Abdominal: Nontender, nondistended, soft. BS present. Principal Diagnosis cellulitis Discharge Exam Gen: NAD, alert, interactive Resp:Non-labored, no wheezing/rhonchi/rales, CTAB CV:RRR, normal S1/S2, no M/R/G Abd: Soft, non-distended, no TTP, normoactive bowels, no masses Extr: 2+ dp bilaterally, no edema * Stage 4 cutaneous lesion on R thigh a/w purulent drainage * Stage 4 cutaneous lesion on L superior-medial calf w/o drainage * Cutaneous lesion (4-5 cm) on R superior-lateral calf w/ purulent drainage Discharge Data Allergies Allergy/AdvReac Type Severity Reaction Status Date / Time No Known Allergies Allergy Verified 07/11/22 11:07 Consultations 07/14/22 15:05 ED Decision to Admit Stat 07/14/22 15:44 Consult General Surgery Routine 07/14/22 18:44 Consult General Surgery Routine 07/17/22 08:01 Consult Radiation Oncology Routine Procedures Performed Operation Date: 07/15/22 09:40 Actual Procedures p Debridement Right Side Wound Upper Leg and Debridement Left Lower Leg Wound(Bilateral) - Karen Dickerson MD Ordered Studies 07/14/22 11:20 CT pelvis w/IV con only Stat 07/14/22 11:21 CT tib/fib LT w con Stat Hospital Course (1) Radiation necrosis of skin and subcutaneous: Wilfredo is a 72 y/o M with 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 Switched to Levofloxacin 750mg QD and cephalexin 500mg BID at time of discharge. Should continue treatment for 14 days and to continue following with wound care outpatient. -Should see PCP in one week. Cutaneous T-cell Lymphoma - Managed by [facility] oncology 05/30/2022: Keytruda initiated given increased number of lesions, was scheduled for Dose #3 07/14 (did not receive), was sent to ER by oncology center 07/05/2022: Completed radiation therapy to right thigh and left lower leg, 4500 cGy - Continue outpatient dose of oxycodone - Continue outpatient Flagyl gel - 07/17/2022: had radiation treatment to his R calf. - Continue to follow up with oncology outpatient to discuss further radiation treatment. GERD Continue PPI Hypertension Continue Lisinopril 10 mg daily Continue Amlodipine 10 mg daily Hyperlipidemia Continue atorvastatin 20 mg daily (2) Open wound of left hip: (3) Cellulitis: (4) Cutaneous T-cell lymphoma: (5) Hyperlipidemia: (6) Hypertension: (7) Acid reflux disease: Total Time Total Time Spent Total Time Spent (In Minutes): 30 Total Time Includes: Examination of the Patient, Discharge Planning and Medication Reconciliation Discharge Plan Discharge Items Patient Disposition: Home - Self-Care Reason For Visit: CELLULITIS R HIIP VS RADIATION NECROSIS Discharge Diagnosis: Cellulitis Activity: Resume your previous activity Non-emergency contact: Primary Care Provider and Oncologist Call non-emergency contact if: your pain is worsening, your temperature is above 101.5, your wound has increased redness and your wound has increased drainage Follow-up/Referrals: Maia Moore CRNP [Primary Care Provider] - 07/26/22 11:30 am Diet: Regular Addtl Attending Provider Instructions: You were admitted to the hospital for cutaneous T-cell lymphoma with necrotic tissue and surrounding cellulitis on your right thigh and left lower extremity. You were treated with surgical debridement on 07/15. You were started on antibiotics and cultures of your wound were cultured and your antibiotics were changed to specific therapy for pseudomonas. You also followed with wound care and should continue to while outside the hospital. A discharge summary will be sent to your primary care physician to ensure continuity of care. Please bring this discharge summary with you to your next office appointment so that your provider can review it at that time. Follow-up appointments: * Make a follow-up appointment with your PCP within the next week. It is very important that you follow up with them shortly after discharge from the hospital. * Make a follow-up appointment with your radiation oncology to discuss further treatment of your cutaneous T-Cell Lymphoma. * Make an appointment and continue care with the wound care clinic. * Keep all your follow-up appointments as already scheduled. If you cannot make an appointment, notify your provider. Medications: Your medication list has been reviewed and reconciled upon discharge to ensure accuracy and continuity of care. An updated list of all your medications is included with your hospital discharge paperwork. Please review this list closely, and make note of any changes. * We sent a new medication called levofloxacin to your pharmacy. Take levofloxacin (750mg) 1 tablet a day for 14 days. * We sent a new medication called cephalexin to your pharmacy. Take cephalexin (500mg) 1 tablet twice a day for 14 days. * If you have any issues filling these prescriptions, please call [phone] and ask to leave a message for Dr. Farrell. Take your medications as instructed; do not skip a dose of your medicines. Make sure all of your doctors know every medicine you are taking (including ykhl-[id number] medicines, vitamins, and supplements). Call your primary care provider before taking any new medicines (including over- the-counter medicines, vitamins, and supplements), because some of these may interact with your current medications, or may make your symptoms worse. Tell your primary care provider if you cannot afford your medications. CONTACT YOUR PRIMARY CARE PROVIDER if you experience any of the following: fevers or chills worsening pain or your wound worsens Difficulty following your treatment plan, or difficulty taking medications CALL 911 OR GO TO THE EMERGENCY DEPARTMENT if you experience any of the following: Sudden, severe abdominal pain or nausea/vomiting Severe chest pain, or chest pain that radiates (moves) to your jaw or arm Sudden, severe shortness of breath or difficulty breathing Thank you for allowing us to participate in your care. Pending Studies at Discharge: No Stand-Alone Forms: [facility], Smoking Cessation Medications and DC Order Prescriptions: New levofloxacin 750 mg tablet 750 mg PO DAILY 14 Days Qty: 14 0RF cephalexin 500 mg capsule 500 mg PO BID 14 Days Qty: 28 0RF Continued acetaminophen [Tylenol Extra Strength] 500 mg tablet 1,000 mg PO Q6H PRN (Reason: Fever Or Pain) ondansetron HCl 8 mg tablet 8 mg PO Q8H PRN (Reason: Nausea) prochlorperazine maleate [Compazine] 10 mg tablet 10 mg PO Q6H PRN (Reason: Nausea) Emergen-C 500 mg tablet,chewable 1 tab PO DAILY oxycodone 5 mg capsule 5 mg PO Q8H PRN (Reason: Pain) metronidazole [Metrogel] 1 % gel 1 applic topical BID Qty: 60 3RF omeprazole 20 mg capsule,delayed release(DR/EC) 20 mg PO DAILY Qty: 90 3RF atorvastatin 20 mg tablet 20 mg PO DAILY Qty: 90 3RF tamsulosin 0.4 mg capsule 0.4 mg PO HS 30 Days Qty: 90 3RF lisinopril 10 mg tablet 10 mg PO DAILY Qty: 90 3RF amlodipine 10 mg tablet 10 mg PO DAILY Qty: 90 3RF silver sulfadiazine [Silvadene] 1 % cream 1 applic topical TID Qty: 85 2RF Rx Instructions: apply a 1.5 mm thickness triamcinolone acetonide 0.1 % cream 1 applic topical BID PRN (Reason: Rash) Qty: 1 doxepin 10 mg capsule 20 mg PO DAILY Qty: 60 2RF Rx Instructions: ordered by Derm docusate sodium [Dulcolax Stool Softener (dss)] 100 mg capsule 100 mg PO DAILY Discharge Orders: Discharge Order (Routine); Ordered 07/17/22 Ordered By: Michael Camargo/Other Patient Handouts: Cancer: Preventing Infections, Cellulitis Dc Admission Data Admit Date/Time: 07/16/22 16:21 Attending Provider: Deb Cantu Admit Provider: Dale Perez Primary Care Provider: Maia Moore Other Providers: Karen Dickerson ; Dale Perez ; Nick Conti Veeral B. Other Interventions: Discharge Summary Assessment (RN) Last Done: 07/17/22 16:55 Resident Activity Tracking Resident Involvement: Resident Care Provided Care Provided: Adult Hospital Medicine
[2022-07-17 16:07] VITALS: TEMP 97.9; O2SAT 96
[2022-07-17 16:56] VITALS: BP 123/77; PULSE 70
--- NOTE | 2022-07-18 08:36 | Electrocardiogram Report ---
Test Reason : Blood Pressure : / mmHG Vent. Rate : 080 BPM Atrial Rate : 080 BPM P-R Int : 160 ms QRS Dur : 094 ms QT Int : 376 ms P-R-T Axes : 061 022 049 degrees QTc Int : 433 ms Normal sinus rhythm Normal ECG When compared with ECG of 14-JUL-2021 19:08, No significant change was found Confirmed by Neri Strauss ([id number]) on 07/18/2022 8:35:53 AM Referred By: Buck lOmos Confirmed By:Neri Strauss
== END 2022-07-17 17:25 | disposition home or self-care (01) ==
LOC: ED 10:39 → 3W 10:39 → SUATTDRO 15:36 → 3W 18:42 → SUATTDRO 07-16 16:21

== ENCOUNTER 2022-07-21 15:28 | Observation (INO) ==
[2022-07-21] MEDS ORDERED: GELATIN SPONGE SZ 100 EXT STA (16:37)
[2022-07-21] MEDS ORDERED: GELATIN SPONGE 12-7MM ONE (16:47)
[2022-07-21 16:48] LABS: Hematocrit (blood only) 36.6 % (40.1-51.0); Hemoglobin 12.5 g/dl (14.0-18.0); Mean Corpuscular Hgb Conc 34.2 g/dL (32.0-36.0); Mean Corpuscular Volume 87.8 fL (80.0-100.0); Mean Platelet Volume 9.1 fL (9.4-12.4); Platelet Count 219 K/uL (130-400); RDW Coefficient of Variation 12.6 % (11.5-14.5); RDW Standard Deviation 39.8 fL (36.4-46.3); Red Blood Count 4.17 M/uL (4.63-6.08); White Blood Count 7.95 K/ul (4.8-10.8)
--- NOTE | 2022-07-21 16:53 | Emergency Department Note ---
History of Present Illness General Chief complaint: Bleeding Stated complaint: BACK OF R LEG BLEEDING Time Seen by Provider: 07/21/22 16:01 History of Present Illness Maximum Pain Intensity: 3 This is a 72-year-old male that presents to the emergency department via private vehicle with complaints of "back of right leg bleeding". The patient notes that he currently has underlying malignancy to the tissues of the right lower extremity where he is receiving radiation. 1 of these regions is on the right posterior calf. He notes that there was a dressing on this area that he removed today and noted bleeding from the site. It was brisk bleeding and they could not stop the bleeding therefore prompted arrival here today. He notes that this started bleeding around 2:30 PM. He and at bedside are concerned he may have lost a large amount of blood. Patient denies any sensation of dizziness or lightheadedness. Patient denies any additional trauma or injury to the right leg. He did receive chemotherapy earlier today and was scheduled for radiation later today. Home Medications Medication Instructions Recorded Confirmed Type docusate sodium 100 mg capsule 100 mg PO DAILY 04/24/19 07/21/22 History (Dulcolax Stool Softener (docusate)) omeprazole 20 mg capsule,delayed 20 mg PO DAILY #90 caps 05/25/20 07/21/22 Rx release doxepin 10 mg capsule 20 mg PO DAILY #60 caps 08/23/20 07/21/22 Rx triamcinolone acetonide 0.1 % 1 applic topical BID PRN Rash #1 g 10/21/20 07/21/22 History topical cream acetaminophen 500 mg tablet 1,000 mg PO Q6H PRN Fever Or Pain 11/08/20 07/21/22 History (Tylenol Extra Strength) atorvastatin 20 mg tablet 20 mg PO DAILY #90 tabs 07/11/21 07/21/22 Rx lisinopril 10 mg tablet 10 mg PO DAILY #90 tabs 10/12/21 07/21/22 Rx tamsulosin 0.4 mg capsule 0.4 mg PO HS 30 days #90 caps 10/12/21 07/21/22 Rx amlodipine 10 mg tablet 10 mg PO DAILY #90 tabs 03/20/22 07/21/22 Rx ondansetron HCl 8 mg tablet 8 mg PO Q8H PRN Nausea 06/01/22 07/21/22 History oxycodone 5 mg capsule 5 mg PO Q8H PRN Pain 06/01/22 07/21/22 History prochlorperazine maleate 10 mg 10 mg PO Q6H PRN Nausea 06/01/22 07/21/22 History tablet (Compazine) vitamin C 500 mg-multivitamin with 1 tab PO DAILY 06/01/22 07/21/22 History minerals chewable tablet (Emergen-C) silver sulfadiazine 1 % topical 1 applic topical TID #85 grams 06/19/22 07/21/22 Rx cream (Silvadene) metronidazole 1 % topical gel 1 applic topical BID #60 grams 07/11/22 07/21/22 Rx (Metrogel) cephalexin 500 mg capsule 500 mg PO BID 14 days #28 caps 07/17/22 07/21/22 Rx levofloxacin 750 mg tablet 750 mg PO DAILY 14 days #14 tabs 07/17/22 07/21/22 Rx Allergies Allergy/AdvReac Type Severity Reaction Status Date / Time No Known Allergies Allergy Verified 07/21/22 17:29 Past Med/Surg History Medical History Acid reflux disease Anemia Arthritis Cutaneous T-cell lymphoma External hemorrhoids Hearing difficulty History of chemotherapy Brentuximab (01/03/2019 - 05/30/2019 x 8 cycles) Brentuximab (11/07/2021 - Present x 6 cycles thus far) Hyperlipidemia Hypertension Psoriasis 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, stage IV, wound size about 10 x 10 cm; Debridement of wound on the left lower leg, stage IV, size about 3 x 4 cm Family History Mother Myocardial infarction Father Myocardial infarction Sister Cancer, Onset Age: 70 do not know what type Denies family history of Ovarian cancer Prostate cancer Breast cancer Colorectal cancer Social History Smoking Status: Former smoker Tobacco Type: Cigarettes Age Started Using Tobacco: 16; Age Quit Using Tobacco: 40; packs per day: 1.5; Years Smoked: 24; Cigarettes Per Day: 30; Number of Years Since Quit: 30; Second Hand Exposure: Yes; Do You Dip or Chew Tobacco: No; Tobacco Cessation Education Requested by Patient: No Hx Alcohol Use: No Hx Substance Use: No Preferred Language: Thai Communication Ability: Effective Visual Impairment: No Limitations Hearing Ability: Hard of Hearing Rug Touch Up Painter Required: No Beliefs That Will Affect Care: None marital status: Current Living Situation: Spouse current occupational status: employed 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 Mercer) Assistive Devices: Cane, Denture - Upper and Denture - Lower Assistive Devices Comment: uses cane as needed for foot pain Review of Systems A total of 10 systems reviewed and were otherwise negative Physical Exam Vital Signs Vital Signs - 24 hr 07/21/22 15:29 07/21/22 17:39 Temperature 36.4 C L Temperature Source Temporal Artery Scan Pulse Rate 94 H Pulse Rate [Finger] 84 Pulse Rhythm Regular Pulse Strength Normal Respiratory Rate 20 16 Respiratory Effort / Characteristics Non-Labored Spontaneous Respiratory Depth Normal Respiratory Pattern Regular Blood Pressure 125/77 Blood Pressure [Right Arm] 127/66 Blood Pressure Mean 93 Blood Pressure Mean [Right Arm] 86 Blood Pressure Position Sitting Pulse Oximetry 96 96 Oxygen Delivery Method Room Air Room Air Sepsis Recent Fever Within 48 Hours No Sepsis New/Unexplained Change in Mental Status No Sepsis Action Taken by Nursing No Action Required VITAL SIGNS - Vital signs and nursing notes were reviewed. Stable and afebrile. GENERAL -72-year-old male appearing his stated age who is in no acute distress. Communicates well with provider and answers questions appropriately. SKIN -there is an approximately 5 cm in diameter wound to the posterior right mid calf region and there is a small bleeding vessel noted at the superiormost aspect of this wound. HEAD - NC/AT. EYES - Sclera anicteric. LUNGS - Chest wall symmetric without accessory muscle use, intercostals retractions, or central cyanosis. Normal vesicular breath sounds CTA B/L. No wheezes, rales, or rhonchi appreciated. CARDIAC - RRR with S1/S2. No murmur, rubs, or gallops appreciated. EXTREMITIES - No clubbing or peripheral cyanosis. No pretibial edema present. Skin as above. No evidence of trauma or bony injury on examination. +5/5 strength noted in UE/LE bilaterally. NEUROLOGIC -patient sensory intact to light touch throughout the right lower extremity. PSYCH - A&O, and cooperates fully with examiner. Pt is very pleasant and interacts well with examiner. Course Administered Medications Heparin Sodium (Porcine) (Heparin 100 Unit/Ml 5ml Flush) 5 ml FLUSH PRN PRN PRN Reason: Flush Stop: 08/20/22 21:12 Last Admin: 07/22/22 05:32 Dose: 5 ml Documented By: Admin: 07/21/22 22:22 Dose: 5 ml Documented By: MIRYAM Hydromorphone HCl (Hydromorphone Inj 0.5 Mg/0.5 Ml Syr) 0.25 mg IV Q4H PRN PRN Reason: Pain Stop: 08/04/22 19:00 Last Admin: 07/21/22 23:20 Dose: 0.25 mg Documented By: MIRYAM Levofloxacin/Dextrose (Levaquin/D5w) 750 mg in 150 mls @ 100 mls/hr IV HS PAN Stop: 07/28/22 21:59 Last Infusion: 07/21/22 23:55 Dose: 0 mls/hr Documented By: Admin: 07/21/22 22:22 Dose: 100 mls/hr Documented By: MIRYAM Cefazolin Sodium (Ancef 1000mg) 1,000 mg in 7.5 mls @ 2.5 mls/min IV Q8H PAN Stop: 07/28/22 20:59 Last Admin: 07/22/22 05:32 Dose: 2.5 mls/min Documented By: Admin: 07/21/22 22:21 Dose: 2.5 mls/min Documented By: MIRYAM Miscellaneous (Metrogel: Order Awaiting Action) 1 each N/A QS [facility] Stop: 08/21/22 00:00 Last Admin: 07/21/22 23:12 Dose: Not Given Documented By: MITRA Oxycodone HCl (Oxycodone Hcl Ir 5 Mg Tab (Immediate Release)) 5 mg PO Q8H PRN PRN Reason: Pain Stop: 08/04/22 20:38 Last Admin: 07/22/22 05:35 Dose: 5 mg Documented By: MIRYAM Silver Sulfadiazine (Silver Sulfadiazine 1% Cr 50 Gm Jar) 1 appln TOP TID [facility] Stop: 08/20/22 20:59 Last Admin: 07/21/22 23:00 Dose: 1 appln Documented By: MITRA Tamsulosin HCl (Tamsulosin Hcl 0.4 Mg Cap) 0.4 mg PO HS [facility] Stop: 08/20/22 20:59 Last Admin: 07/21/22 22:21 Dose: 0.4 mg Documented By: MIRYAM Discontinued Medications Gelatin (Gelatin Sponge Sz 100) 1 each EXT NOW STA Stop: 07/21/22 16:38 Last Admin: 07/21/22 16:52 Dose: 1 each Documented By: PAMELA Gelatin (Gelatin Sponge 12-7mm) Confirm Administered Dose 1 each .ROUTE .STK-MED ONE Stop: 07/21/22 16:48 Last Admin: 07/21/22 16:52 Dose: Not Given Documented By: PAMELA Heparin Sodium (Porcine) (Heparin 100 Unit/Ml 5ml Flush) Confirm Administered Dose 5 ml .ROUTE .STK-MED ONE Stop: 07/21/22 21:39 Last Admin: 07/21/22 21:42 Dose: 5 ml Documented By: MITRA Oxycodone HCl (Oxycodone Hcl Ir 5 Mg Tab (Immediate Release)) 5 mg PO NOW STA Stop: 07/21/22 17:17 Last Admin: 07/21/22 17:41 Dose: 5 mg Documented By: CASSIUS Oxycodone HCl (Oxycodone Hcl Ir 5 Mg Tab (Immediate Release)) 5 mg PO NOW STA Stop: 07/21/22 18:30 Last Admin: 07/21/22 18:36 Dose: 5 mg Documented By: CASSIUS Medical Decision Making Laboratory Data Result diagrams: 07/22/22 05:35 07/22/22 05:35 Lab Results 07/21/22 07/21/22 07/21/22 Range/Units 16:30 16:30 17:44 WBC 7.95 (4.8-10.8) K/ul RBC 4.17 L (4.63-6.08) M/uL Hgb 12.5 L (14.0-18.0) g/dl Hct 36.6 L (40.1-51.0) % MCV 87.8 (80.0-100.0) fL MCH 30.0 (25.0-34.0) pg MCHC 34.2 (32.0-36.0) g/dL RDW Std Deviation 39.8 (36.4-46.3) fL RDW Coeff of Alhaji 12.6 (11.5-14.5) % Plt Count 219 (130-400) K/uL MPV 9.1 L (9.4-12.4) fL PT 11.7 (9.0-12.0) Seconds INR 1.1 (0.9-1.1) APTT 112.9 H* (21.0-31.0) Seconds PTT Ratio 4.1 SARS-CoV-2, RNA, NAAT NEGATIVE (NEGATIVE) MDM Narrative Patient was seen and evaluated as above in room D03. Review was performed of nursing notes and vital signs. I did review pertinent previous visits and patient history. After obtaining a thorough history and physical examination the above work up was performed. Patient presents to us today for evaluation of a bleeding wound to the right posterior calf region. He clinically appears well nontoxic. Vital signs stable. Blood work was obtained here to include CBC and no significant hemoglobin drop compared to previous. I did review the patient's CBC and CMP performed earlier today in the [facility] system. Options of care were discussed with the patient. Consent was obtained. The right leg dressing was removed. Bleeding was immediately noted. I cleanse the region with sterile saline and then applied a dressing to the area followed by Carlos wrap for some mild pressure. This was able to successfully obtain hemostasis. I then discussed the case with attending physician as well as general surgery as the patient has had several wound debridements of other areas by general surgery in the recent past. They came to evaluate the patient. Recommendation from the general surgeon was to admit the patient to the medical service with an general surgery being involved for wound management. I believe this is reasonable. Case discussed with the hospitalist service as well. The patient's dressing did become saturated with blood and the wound was bleeding. I again obtain consent and discussed benefit versus risk and was able to redress the wound. This continue to bleed therefore redressed with a small amount of Gelfoam at the site. This was followed by gauze. A little bit tighter dressing was applied. I was then notified about 10 minutes after application the patient was experiencing increasing pain to the area therefore loosen the dressing. Patient was well perfused distal to the dressing however once I loosened it his pain did improve. The Gelfoam dressing is felt to be the best dressing at the present time and least invasive to obtain hemostasis. Further dressing changes will need to occur throughout his stay however at the present time this is felt to be the most appropriate. Patient was then reevaluated several times following this and was neurovascularly intact post dressing application and pain was much improved. He did receive oral oxycodone here throughout his stay and the first dose did not seem to fully manage the pain and he did request a second tablet which was provided. Pulse oximetry monitoring was performed. No hypoxia noted. Patient at this time felt best served in the inpatient setting. Please refer to further documentation regarding his stay. Patient happy with plan of care. General surgery will perform the patient dressing changes and wound management during his stay. GCS: 15 In the evaluation and treatment of this patient the following differential diagnoses were entertained: Fracture, dislocation, subluxation, contusion, bleeding wound, anemia, among others. Attending Attestation: I Gaurav Coombs MD independently saw and evaluated this patient and agree with history and physical is otherwise documented by the physician assistant film editor. See their note for full details. Recent surgical care with hx of CA and radiation now with bleedin leg wound. PA consulted gen surg given their recent involvement and the difficult with hemostasis. Patient had intermittent seepage of bandaging but minimal. Given the friability of the area and several slow soakings of bandaging will be obs overnight to ensure control. Patient with no other active distress or complaints of lightheadedness, CP, or SOB. Impression & Plan Bleeding from wound Discharge Plan Visit Data Chief Complaint: Bleeding Stated Complaint: BACK OF R LEG BLEEDING ED Provider: Gaurav Coombs ED Midlevel Provider: Abdi Travis Discharge Problem: Bleeding from wound Patient Disposition: Admitted As Inpatient Condition: Good Discharge Instructions Interventions: ED Discharge Assessment Last Done: 07/21/22 20:03
--- NOTE | 2022-07-21 17:08 | Surgery Consultation ---
Date of Consultation July 21, 2022 Assessment & Plan (1) Cutaneous T-cell lymphoma: Continue pressure dressing, rest and elevation. Due to necrotic nature, no additional measures can be taken outside of the OR. Dr. Sorto recommended observation overnight due to recent chemotherapy and ongoing bleeding. History of Present Illness History of Present Illness 72 y/o male with cutaneous T-cell lymphoma receiving chemo was discharged 4 days ago. He had debridement of lower extremity wounds by Dr. Dickerson on the . A different wound on his right calf began bleeding today during dressing change at home.+ He came to the ER for continued bleeding. Allergies Allergy/AdvReac Type Severity Reaction Status Date / Time No Known Allergies Allergy Verified 07/11/22 11:07 Home Medications Medication Instructions Recorded Confirmed Type docusate sodium 100 mg capsule 100 mg PO DAILY 04/24/19 07/14/22 History (Dulcolax Stool Softener (docusate)) omeprazole 20 mg capsule,delayed 20 mg PO DAILY #90 caps 05/25/20 07/14/22 Rx release doxepin 10 mg capsule 20 mg PO DAILY #60 caps 08/23/20 07/14/22 Rx triamcinolone acetonide 0.1 % 1 applic topical BID PRN Rash #1 g 10/21/20 07/14/22 History topical cream acetaminophen 500 mg tablet 1,000 mg PO Q6H PRN Fever Or Pain 11/08/20 07/14/22 History (Tylenol Extra Strength) atorvastatin 20 mg tablet 20 mg PO DAILY #90 tabs 07/11/21 07/14/22 Rx lisinopril 10 mg tablet 10 mg PO DAILY #90 tabs 10/12/21 07/14/22 Rx tamsulosin 0.4 mg capsule 0.4 mg PO HS 30 days #90 caps 10/12/21 07/14/22 Rx amlodipine 10 mg tablet 10 mg PO DAILY #90 tabs 03/20/22 07/14/22 Rx ondansetron HCl 8 mg tablet 8 mg PO Q8H PRN Nausea 06/01/22 07/14/22 History oxycodone 5 mg capsule 5 mg PO Q8H PRN Pain 06/01/22 07/14/22 History prochlorperazine maleate 10 mg 10 mg PO Q6H PRN Nausea 06/01/22 07/14/22 History tablet (Compazine) vitamin C 500 mg-multivitamin with 1 tab PO DAILY 06/01/22 07/14/22 History minerals chewable tablet (Emergen-C) silver sulfadiazine 1 % topical 1 applic topical TID #85 grams 06/19/22 07/14/22 Rx cream (Silvadene) metronidazole 1 % topical gel 1 applic topical BID #60 grams 07/11/22 07/14/22 Rx (Metrogel) cephalexin 500 mg capsule 500 mg PO BID 14 days #28 caps 07/17/22 Rx levofloxacin 750 mg tablet 750 mg PO DAILY 14 days #14 tabs 07/17/22 Rx Patient History Medical History Acid reflux disease Anemia Arthritis Cutaneous T-cell lymphoma External hemorrhoids Hearing difficulty History of chemotherapy Brentuximab (01/03/2019 - 05/30/2019 x 8 cycles) Brentuximab (11/07/2021 - Present x 6 cycles thus far) Hyperlipidemia Hypertension Psoriasis 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, stage IV, wound size about 10 x 10 cm; Debridement of wound on the left lower leg, stage IV, size about 3 x 4 cm Family History Mother Myocardial infarction Father Myocardial infarction Sister Cancer, Onset Age: 70 do not know what type Denies family history of Ovarian cancer Prostate cancer Breast cancer Colorectal cancer Social History Smoking Status: Never smoker Tobacco Type: Cigarettes Age Started Using Tobacco: 16; Age Quit Using Tobacco: 40; packs per day: 1.5; Years Smoked: 24; Cigarettes Per Day: 30; Number of Years Since Quit: 30; Second Hand Exposure: No; Hx Alcohol Use: Yes Alcohol type: wine Hx Substance Use: No Preferred Language: Greek Communication Ability: Effective Visual Impairment: No Limitations Hearing Ability: Hard of Hearing Bread Slicer Machine Required: No Beliefs That Will Affect Care: None marital status: Current Living Situation: Spouse current occupational status: employed 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 Mercer) Assistive Devices: Glasses Physical Exam Musculoskeletal: right calf necrotic wound with venous bleeding Results & Data ([facility]) Vital Signs (Past 12 Hours) Vital Signs Temp Pulse Resp BP Pulse Ox O2 Del Method 07/21/22 15:29 36.4 C L 94 H 20 125/77 96 Room Air PG Care Time/CCT Total # of Minutes Spent Total Time Spent with Patient: Total time spent is greater than 50% in coordination of care (as documented) at patient's floor/unit and/or counseling patient: Coding Level of Care Code 47564 Initial Inpt Care Lvl 1 Diagnoses Cutaneous T-cell lymphoma C84.A9 Lymphoma site: extranodal excluding spleen and other solid organs (1) Cutaneous T-cell lymphoma Lymphoma site: extranodal excluding spleen and other solid organs Qualified Code(s): C84.A9 - Cutaneous T-cell lymphoma, unspecified, extranodal and solid organ sites
[2022-07-21] MEDS ORDERED: oxyCODONE HCL IR 5 MG TAB (IMMEDIATE RELEASE) PO STA ×2 (17:16→18:29)
--- NOTE | 2022-07-21 18:34 | History & Physical Report ---
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/anticoagulants (2) Radiation necrosis of skin and subcutaneous: Plan: - With known wounds in the R lateral thigh, R calf (most recent), and L calf - Will require continued f/u with Radiation Oncology after discharge (3) Cutaneous T-cell lymphoma: Plan: - Managed by [facility] Oncology - on Keytruda and radiation treatments, as above - Continue topical metronidazole gel - Continue oncology f/u after discharge - ABX as above (4) Anemia: Plan: - Review of inpatient records reveals mild normocytic anemia (baseline ~13) dating back to 2020 - Day of admission [facility] records: Hgb 14.0 - 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 in setting of hemorrhage and lymphoma treatmen ts - Check iron studies, reticulocytes, B12 with AM labs - Recheck H&H at 2200 given reports of significant hemorrhage 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 (5) Hypercholesterolemia: Plan: - Continue statin (6) Hypertension: Plan: - Patient reporting significant episodes of HoTN on currently-listed regimen of lisinopril + amlodipine - Hold both agents in setting of hemorrhage, previous HoTN reports - This will need addressed as an outpatient once acute issues are stabilized Plan Code: Full Diet: NPO PPX: Contraindicated at this time with wounds and hemorrhage Dispo: MS History of Present Illness Primary Care Provider: MANNY Saucedo This is a 72-year-old male with a 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 Patient says he was recovering well after his discharge when he was preparing today to go to his radiation treatment with Dr. Olmos. He said he was going to try and get the wound cleaned up, so he removed the dressing. The Aquacel was stuck to the wound, so he pulled it off. He says immediately after it began bleeding profusely. They attempted wrapping it with multiple things at home without much success. Due to the continued bleeding, they reported to the hospital for evaluation. 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 He underwent surgical debridement on 07/15. His wound culture demonstrated Pseudomonas. He was on Zosyn -> Augmentin during hospital stay, and discharged on Levofloxacin and cephalexin, which he has been taking since. The only medication changes he reports since last discharge in addition to the antibiotics are holding his blood pressure medications due to prior episodes of hypotension. In the ED, patient was found to be hemodynamically stable with normal vital signs. Admission labs revealing of chronic anemia Hgb 12.5. Lower extremity CT obtained 07/14 during last admission demonstrated soft tissue wound of the posterior medial upper calf with probable associated cellulitis without abscess. He was given oxycodone. Surgery was consulted, who recommended monitoring in the hospital overnight with pressure dressing, rest, and elevation. Allergies Allergy/AdvReac Type Severity Reaction Status Date / Time No Known Allergies Allergy Verified 07/27/22 10:00 Home Medications Medication Instructions Recorded Confirmed Type docusate sodium 100 mg capsule 100 mg PO DAILY 04/24/19 07/27/22 History (Dulcolax Stool Softener (docusate)) omeprazole 20 mg capsule,delayed 20 mg PO DAILY #90 caps 05/25/20 07/27/22 Rx release doxepin 10 mg capsule 20 mg PO DAILY #60 caps 08/23/20 07/27/22 Rx triamcinolone acetonide 0.1 % 1 applic topical BID PRN Rash #1 g 10/21/20 07/27/22 History topical cream acetaminophen 500 mg tablet 1,000 mg PO Q6H PRN Fever Or Pain 11/08/20 07/27/22 History (Tylenol Extra Strength) lisinopril 10 mg tablet 10 mg PO DAILY #90 tabs 10/12/21 07/27/22 Rx tamsulosin 0.4 mg capsule 0.4 mg PO HS 30 days #90 caps 10/12/21 07/27/22 Rx amlodipine 10 mg tablet 10 mg PO DAILY #90 tabs 03/20/22 07/27/22 Rx ondansetron HCl 8 mg tablet 8 mg PO Q8H PRN Nausea 06/01/22 07/27/22 History oxycodone 5 mg capsule 5 mg PO Q8H PRN Pain 06/01/22 07/27/22 History prochlorperazine maleate 10 mg 10 mg PO Q6H PRN Nausea 06/01/22 07/27/22 History tablet (Compazine) vitamin C 500 mg-multivitamin with 1 tab PO DAILY 06/01/22 07/27/22 History minerals chewable tablet (Emergen-C) silver sulfadiazine 1 % topical 1 applic topical TID #85 grams 06/19/22 07/27/22 Rx cream (Silvadene) metronidazole 1 % topical gel 1 applic topical BID #60 grams 07/11/22 07/27/22 Rx (Metrogel) cephalexin 500 mg capsule 500 mg PO BID 14 days #28 caps 07/17/22 07/27/22 Rx levofloxacin 750 mg tablet 750 mg PO DAILY 14 days #14 tabs 07/17/22 07/27/22 Rx atorvastatin 20 mg tablet 20 mg PO DAILY #90 tabs 07/24/22 07/27/22 Rx pembrolizumab 25 mg/mL intravenous IV .Q 3 weeks 07/24/22 07/27/22 History solution (Keytruda) Past Med/Surg History Medical History (Updated 07/27/22 @ 10:20 by Silvino Keller DO) Acid reflux disease Arthritis Cutaneous T-cell lymphoma External hemorrhoids Hearing difficulty History of chemotherapy Brentuximab (01/03/2019 - 05/30/2019 x 8 cycles) Brentuximab (11/07/2021 - Present x 6 cycles thus far) Psoriasis 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, stage IV, wound size about 10 x 10 cm; Debridement of wound on the left lower leg, stage IV, size about 3 x 4 cm Family History Mother Myocardial infarction Father Myocardial infarction Sister Cancer, Onset Age: 70 Denies family history of Ovarian cancer Prostate cancer Breast cancer Colorectal cancer Social History Smoking Status: Former smoker Tobacco Type: Cigarettes Age Started Using Tobacco: 16; Age Quit Using Tobacco: 40; packs per day: 1.5; Years Smoked: 24; Cigarettes Per Day: 30; Number of Years Since Quit: 30; Second Hand Exposure: Yes; Hx Alcohol Use: No Hx Substance Use: No Preferred Language: Korean Communication Ability: Effective Visual Impairment: No Limitations Hearing Ability: Hard of Hearing Can Patcher Required: No Beliefs That Will Affect Care: None marital status: Current Living Situation: Spouse current occupational status: employed 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 Mercer) Assistive Devices: None Review of Systems Review of Systems: as per HPI Physical Exam Physical Exam: General: 72-year old male who is alert, oriented, and appears in no acute distress. HEENT: NCAT. - Eyes - Sclera are white, anicteric, and without injection. - Mouth - MMM - Neck - supple, no appreciable JVD Cardiac: Normal rate and regular rhythm; S1 and S2 present with no murmurs, rubs, or gallops. Pulmonary: Good respiratory effort with symmetric expansion of the chest. No use of accessory muscles. Lungs were clear to auscultation bilaterally with no crackles or wheezes. Abdominal: Normoactive bowel sounds. Abdomen was soft, nondistended, and non- tender to palpation. Extremities: Upper and lower extremities are warm and well perfused. RLE wound on the posterior calf is wrapped with fresh dressing - this was not removed due to difficulties with hemostasis. He also has c/d/i dressing of LLE. DP pulses 2+ bilaterally. Distal LE strength 5/5 bilaterally. Psych: Well-developed, well-nourished, appropriately dressed for occasion. Behavior is cooperative and appropriate. Affect is WNL. Insight is appropriate. Results & Data Results & Data ([facility]) Vital Signs (Past 12 Hours) Vital Signs Temp Pulse Pulse Resp BP BP Pulse Ox 07/21/22 17:39 84 16 127/66 96 07/21/22 15:29 36.4 C L 94 H 20 125/77 96 O2 Del Method 07/21/22 17:39 Room Air 07/21/22 15:29 Room Air Supervising Physician Co-Signing Physician Notes Patient seen and examined at bedside. During face to face encounter, I obtained a history and physical examination. Discussed plan of care with patient and DR. Morrell. I reviewed above note and agree with it. Patient will be admitted for skin necrosis associated with skin ulceration, will consult gen surgery and wound care. Will provide supportive care. Resident Activity Tracking Resident Involvement: Resident Care Provided Care Provided: Adult Hospital Medicine (1) Cutaneous T-cell lymphoma Lymphoma site: extranodal excluding spleen and other solid organs Qualified Code(s): C84.A9 - Cutaneous T-cell lymphoma, unspecified, extranodal and solid organ sites
[2022-07-21] MEDS ORDERED: HYDROmorphone INJ 0.5 MG/0.5 ML SYR IV PRN (19:01)
[2022-07-21 19:23] LABS: INR 1.1 (0.9-1.1); Partial Thromboplastin Ratio 4.1; Prothrombin Time 11.7 Seconds (9.0-12.0)
[2022-07-21 19:32] LABS: Partial Thromboplastin Time 112.9 Seconds (21.0-31.0)
[2022-07-21 20:04] VITALS: O2SAT 95
[2022-07-21] MEDS ORDERED: TRIAMCINOLONE ACET 0.1% CR 15 GM TUBE TOP PRN (20:30)
[2022-07-21] MEDS ORDERED: PROCHLORPERAZINE MALEATE 10 MG TAB PO PRN (20:30)
[2022-07-21] MEDS ORDERED: ONDANSETRON 8MG OD TAB PO PRN (20:33)
[2022-07-21] MEDS ORDERED: oxyCODONE HCL IR 5 MG TAB (IMMEDIATE RELEASE) PO PRN (20:39)
[2022-07-21] MEDS ORDERED: TAMSULOSIN HCL 0.4 MG CAP PO SCH (21:00)
[2022-07-21] MEDS ORDERED: HEPARIN 100 UNIT/ML 5ML FLUSH ONE (21:38)
[2022-07-21] MEDS ORDERED: levoFLOXacin/D5W 750 MG/150 ML BAG IV SCH (22:00)
[2022-07-21] MEDS: ceFAZolin 1000MG 1,000 MG/7.5 ML SYR IV SCH (22:21)
[2022-07-21] MEDS: HEPARIN 100 UNIT/ML 5ML FLUSH FLUSH PRN (22:22)
[2022-07-21] MEDS: SILVER SULFADIAZINE 1% CR 50 GM JAR TOP SCH (23:00)
[2022-07-21 23:06] LABS: Hematocrit (blood only) 33.1 % (40.1-51.0); Hemoglobin 11.2 g/dl (14.0-18.0)
[2022-07-21 23:32] LABS: INR 1.1 (0.9-1.1); Partial Thromboplastin Ratio > 5.1; Prothrombin Time 11.8 Seconds (9.0-12.0)
[2022-07-21 23:42] LABS: Partial Thromboplastin Time > 139.0 Seconds (21.0-31.0)
[2022-07-22] MEDS: HEPARIN 100 UNIT/ML 5ML FLUSH FLUSH PRN (05:32)
[2022-07-22] MEDS: ceFAZolin 1000MG 1,000 MG/7.5 ML SYR IV SCH (05:32)
--- NOTE | 2022-07-22 05:58 | Surgery Progress Note ---
Date of Service July 22, 2022 Assessment & Plan (1) Cutaneous T-cell lymphoma: Plan: Patient has been admitted on the hospitalist service. We recommend proceeding as follows: Continue to elevate extremity Continue pressure dressing Attending physician to evaluate wound with further recommendations to follow Admission and Anticipated Discharge Date Admission Date: July 21, 2022 Supervising Physician Co-Signing Physician Notes I changed the dressing today there is no active bleeding we redressed it patient has Aquacel AG in 1 area we left that intact we redressed the area with 4 x 4 gauze Kerlex and Carlos bandage Advised the patient to keep the dressing intact try to avoid prolonged standing and keep the leg elevated is much as possible The patient is scheduled to be seen in the wound clinic on Sunday along with seeing radiation oncologist Subjective Patient is resting comfortably in bed. He denies any pain of his affected extremity. He notes that the dressing has not required changing due to saturation overnight Physical Exam Physical Exam: Right lower extremity has pressure dressing that was applied in the emergency department yesterday. The dressing appears clean, dry, intact without signs of saturation Results & Data ([facility]) Vital Signs (Past 12 Hours) Vital Signs Temp Pulse Pulse Resp BP BP BP 07/21/22 20:15 36.9 C 77 14 137/74 07/21/22 20:34 36.9 C 77 14 137/74 07/21/22 20:03 77 18 122/68 07/21/22 18:37 86 16 133/78 Pulse Ox O2 Del Method 07/21/22 20:15 95 Room Air 07/21/22 20:34 95 Room Air 07/21/22 20:03 95 Room Air 07/21/22 18:37 96 PG Care Time/CCT Total # of Minutes Spent Total Time Spent with Patient: Total time spent is greater than 50% in coordination of care (as documented) at patient's floor/unit and/or counseling patient: Coding Level of Care Code 66143 Subseq Hosp Care Lvl 1 Diagnoses Cutaneous T-cell lymphoma C84.A9 Lymphoma site: extranodal excluding spleen and other solid organs (1) Cutaneous T-cell lymphoma Lymphoma site: extranodal excluding spleen and other solid organs Qualified Code(s): C84.A9 - Cutaneous T-cell lymphoma, unspecified, extranodal and solid organ sites
[2022-07-22 06:24] LABS: Basophils # (auto) 0.05 K/uL (0-0.2); Basophils % (auto) 0.9 %; Eosinophils # (auto) 0.33 K/uL (0-0.50); Eosinophils % (auto) 6.2 %; Hematocrit (blood only) 34.7 % (40.1-51.0); Immature Granulocytes # (auto) 0.04 K/uL (0.00-0.02); Immature Granulocytes % (auto) 0.7 %; Lymphocytes # (auto) 0.91 K/uL (1.2-3.4); Mean Corpuscular Hemoglobin 29.7 pg (25.0-34.0); Mean Corpuscular Hgb Conc 34.6 g/dL (32.0-36.0); Mean Corpuscular Volume 85.9 fL (80.0-100.0); Mean Platelet Volume 9.1 fL (9.4-12.4); Monocytes # (auto) 0.57 K/uL (0.24-0.82); Monocytes % (auto) 10.7 %; Neutrophils # (auto) 3.45 K/uL (1.4-6.5); Neutrophils % (auto) 64.5 %; Platelet Count 210 K/uL (130-400); RDW Coefficient of Variation 12.4 % (11.5-14.5); RDW Standard Deviation 38.6 fL (36.4-46.3); Red Blood Count 4.04 M/uL (4.63-6.08); Reticulocytes # 0.08 10^6/uL (0.02-0.10); White Blood Count 5.35 K/ul (4.8-10.8)
[2022-07-22 07:16] LABS: INR 1.1 (0.9-1.1); Partial Thromboplastin Ratio 1.2; Partial Thromboplastin Time 31.9 Seconds (21.0-31.0)
[2022-07-22 07:33] LABS: Albumin Globulin Ratio 1.3 (0.9-2); Albumin Level 3.3 gm/dl (3.4-5.0); BUN Creatinine Ratio 20.8 (10-20); Bilirubin,Total 0.3 mg/dl (0.2-1.0); Calcium 8.7 mg/dl (8.5-10.1); Creatinine Clr Calc Pharmacy 60.2 ml/min; Est GFR (African American) 80.9 ml/min; Est GFR (Non-African American) 69.8 ml/min; Globulin 2.5 gm/dl (2.5-4.0); Potassium 3.9 mmol/L (3.5-5.1); Total Protein 5.8 gm/dl (6.0-8.3)
[2022-07-22 07:43] VITALS: PULSE 71; TEMP 97.5
--- NOTE | 2022-07-22 07:44 | Hospitalist Progress Note ---
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 (2) Radiation necrosis of skin and subcutaneous: Plan: - With known wounds in the R lateral thigh, R calf (most recent), and L calf - Will require continued f/u with Radiation Oncology after discharge (3) Cutaneous T-cell lymphoma: Plan: - Managed by [facility] Oncology - on Keytruda and radiation treatments, as above - Continue topical metronidazole gel - Continue oncology f/u after discharge - ABX as above (4) Anemia: Plan: - Review of inpatient records reveals mild normocytic anemia (baseline ~13) dating back to 2020 - Day of admission [facility] records: Hgb 14.0 - Likely vsisd-lp-zhekplu disease in setting of hemorrhage and lymphoma treatmen ts - Check iron studies, reticulocytes, B12 with AM labs - Recheck H&H at 2200 given reports of significant hemorrhage 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 (5) Hypercholesterolemia: Plan: - Continue statin (6) Hypertension: Plan: - Patient reporting significant episodes of HoTN on currently-listed regimen of lisinopril + amlodipine - Hold both agents in setting of hemorrhage, previous HoTN reports - This will need addressed as an outpatient once acute issues are stabilized Plan Code: Full Diet: NPO PPX: Contraindicated at this time with wounds and hemorrhage Dispo: MS Admission and Anticipated Discharge Date Admission Date: July 21, 2022 Results & Data Results & Data ([facility]) Vital Signs (Past 12 Hours) Vital Signs Temp Pulse Pulse Resp BP BP BP 07/22/22 07:41 36.4 C L 71 18 118/73 07/21/22 20:15 36.9 C 77 14 137/74 07/21/22 20:34 36.9 C 77 14 137/74 07/21/22 20:03 77 18 122/68 Pulse Ox O2 Del Method 07/22/22 07:41 95 Room Air 07/21/22 20:15 95 Room Air 07/21/22 20:34 95 Room Air 07/21/22 20:03 95 Room Air (1) Cutaneous T-cell lymphoma Lymphoma site: extranodal excluding spleen and other solid organs Qualified Code(s): C84.A9 - Cutaneous T-cell lymphoma, unspecified, extranodal and solid organ sites
[2022-07-22] MEDS ORDERED: ATORVASTATIN 20 MG TAB PO SCH (09:00)
[2022-07-22] MEDS ORDERED: DOXEPIN HCL 10 MG CAPSULE PO SCH (09:00)
[2022-07-22] MEDS ORDERED: MULTIVITAMIN TAB PO SCH (09:00)
[2022-07-22] MEDS ORDERED: DOCUSATE SODIUM 100 MG CAP PO SCH (09:00)
[2022-07-22] MEDS ORDERED: PANTOprazole 40 MG TAB PO SCH (09:00)
--- NOTE | 2022-07-22 09:13 | Discharge Summary ---
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 for evaluation of bleeding wound. Patient says he was recovering well after his discharge when he was preparing today to go to his radiation treatment with Dr. Olmos. He said he was going to try and get the wound cleaned up, so he removed the dressing. The Aquacel was stuck to the wound, so he pulled it off. He says immediately after it began bleeding profusely. They attempted wrapping it with multiple things at home without much success. Due to the continued bleeding, they reported to the hospital for evaluation. 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 He underwent surgical debridement on 07/15. His wound culture demonstrated Pseudomonas. He was on Zosyn -> Augmentin during hospital stay, and discharged on Levofloxacin and cephalexin, which he has been taking since. The only medication changes he reports since last discharge in addition to the antibiotics are holding his blood pressure medications due to prior episodes of hypotension. In the ED, patient was found to be hemodynamically stable with normal vital signs. Admission labs revealing of chronic anemia Hgb 12.5. Lower extremity CT obtained 07/14 during last admission demonstrated soft tissue wound of the posterior medial upper calf with probable associated cellulitis without abscess. He was given oxycodone. Surgery was consulted, who recommended monitoring in the hospital overnight with pressure dressing, rest, and elevation. Admission Exam Per Admitting Provider General: 72-year old male who is alert, oriented, and appears in no acute distress. HEENT: NCAT. - Eyes - Sclera are white, anicteric, and without injection. - Mouth - MMM - Neck - supple, no appreciable JVD Cardiac: Normal rate and regular rhythm; S1 and S2 present with no murmurs, rubs, or gallops. Pulmonary: Good respiratory effort with symmetric expansion of the chest. No use of accessory muscles. Lungs were clear to auscultation bilaterally with no crackles or wheezes. Abdominal: Normoactive bowel sounds. Abdomen was soft, nondistended, and non- tender to palpation. Extremities: Upper and lower extremities are warm and well perfused. RLE wound on the posterior calf is wrapped with fresh dressing - this was not removed due to difficulties with hemostasis. He also has c/d/i dressing of LLE. DP pulses 2+ bilaterally. Distal LE strength 5/5 bilaterally. Psych: Well-developed, well-nourished, appropriately dressed for occasion. Behavior is cooperative and appropriate. Affect is WNL. Insight is appropriate. 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 for evaluation of bleeding RLE wound in the setting of known necrosis from radiation treatments for cutaneous T-cell lymphoma. Wound Hemorrhage / Radiation Necrosis of Skin - Suspected venous bleeding from RLE radiation necrosis-associated ulceration in the RLE. hemostasis achieved in the ED. - Hgb was stable on arrival and at time of discharge. No bleeding noted on discharge. - Surgery consulted and recommended to elevate extremity, continue pressure dressing, and to follow with wound care. - Patient was on outpatient ABX for cellulitis on admission. Was switched to IV antibiotics while in the hospital. - At discharge, patient instructed to continue Levofloxacin 750mg QD and cephalexin 500mg BID that was started on 07/17 for Pseudomonas cellulitis. - Should f/u with wound culture and radiation oncology. Radiation necrosis of skin and subcutaneous - With known wounds in the R lateral thigh, R calf (most recent), and L calf - Will require continued f/u with Radiation Oncology after discharge Cutaneous T-cell lymphoma - Managed by [facility] Oncology - on Keytruda and radiation treatments, as above - Continued topical metronidazole gel - ABX as above Anemia - Review of inpatient records reveals mild normocytic anemia (baseline ~13) dating back to 2020 - Likely [id number] disease in setting of hemorrhage and lymphoma treatments - Iron studies, reticulocytes, B12 were all normal. - H&H were stable during admission and at time of discharge. Hypercholesterolemia - Continued statin Hypertension - Patient reporting significant episodes of HoTN on currently-listed regimen of lisinopril + amlodipine - Hold both agents in setting of hemorrhage, previous HoTN reports - F/U with PCP in one week to discuss futher HTN treatment. 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 You were treated with would care and the bleeding had stopped. A discharge summary will be sent to your primary care physician to ensure continuity of care. Please bring this discharge summary with you to your next office appointment so that your provider can review it at that time. Follow-up appointments: * Make a follow-up appointment with your PCP within the next week. It is very important that you follow up with them shortly after discharge from the hospital. * You have an appointment with radiation oncology next week. If you are unable to make this appointment, or have any other questions, please call their office at [phone]. * You have an appointment with the wound clinic on Sunday. * Keep all your follow-up appointments as already scheduled. If you cannot make an appointment, notify your provider. Medications: Your medication list has been reviewed and reconciled upon discharge to ensure accuracy and continuity of care. An updated list of all your medications is included with your hospital discharge paperwork. Please review this list closely, and make note of any changes. * No new medications were given to you on this admission. Continue to take your levofloxacin and cephalexin that were prescribed to you on 07/17/2022. Take everyday until their are no antibiotics remaining. * Take your medications as instructed; do not skip a dose of your medicines. Make sure all of your doctors know every medicine you are taking (including qrqi-[id number] medicines, vitamins, and supplements). Call your primary care provider before taking any new medicines (including over- the-counter medicines, vitamins, and supplements), because some of these may interact with your current medications, or may make your symptoms worse. Tell your primary care provider if you cannot afford your medications. CONTACT YOUR PRIMARY CARE PROVIDER if you experience any of the following: * Have any medication questions * Your pain is concerning for you * You have a fever * Your wound has increased pain, redness or drainage. * Difficulty following your treatment plan, or difficulty taking medications CALL 911 OR GO TO THE EMERGENCY DEPARTMENT if you experience any of the following: * Sudden, severe abdominal pain or nausea/vomiting * Severe chest pain, or chest pain that radiates (moves) to your jaw or arm * Sudden, severe shortness of breath or difficulty breathing Thank you for allowing us to participate in your care. Pending Studies at Discharge: No Stand-Alone Forms: [facility], Smoking Cessation Medications and DC Order Prescriptions: Continued acetaminophen [Tylenol Extra Strength] 500 mg tablet 1,000 mg PO Q6H PRN (Reason: Fever Or Pain) ondansetron HCl 8 mg tablet 8 mg PO Q8H PRN (Reason: Nausea) prochlorperazine maleate [Compazine] 10 mg tablet 10 mg PO Q6H PRN (Reason: Nausea) Emergen-C 500 mg tablet,chewable 1 tab PO DAILY oxycodone 5 mg capsule 5 mg PO Q8H PRN (Reason: Pain) metronidazole [Metrogel] 1 % gel 1 applic topical BID Qty: 60 3RF Rx Instructions: STARTED 07/18/22 omeprazole 20 mg capsule,delayed release(DR/EC) 20 mg PO DAILY Qty: 90 3RF atorvastatin 20 mg tablet 20 mg PO DAILY Qty: 90 3RF tamsulosin 0.4 mg capsule 0.4 mg PO HS 30 Days Qty: 90 3RF lisinopril 10 mg tablet 10 mg PO DAILY Qty: 90 3RF amlodipine 10 mg tablet 10 mg PO DAILY Qty: 90 3RF silver sulfadiazine [Silvadene] 1 % cream 1 applic topical TID Qty: 85 2RF Rx Instructions: apply a 1.5 mm thickness triamcinolone acetonide 0.1 % cream 1 applic topical BID PRN (Reason: Rash) Qty: 1 doxepin 10 mg capsule 20 mg PO DAILY Qty: 60 2RF Rx Instructions: ordered by Derm docusate sodium [Dulcolax Stool Softener (dss)] 100 mg capsule 100 mg PO DAILY levofloxacin 750 mg tablet 750 mg PO DAILY 14 Days Qty: 14 0RF Rx Instructions: STARTED 07/17/22 FOR 14 DAYS. cephalexin 500 mg capsule 500 mg PO BID 14 Days Qty: 28 0RF Rx Instructions: STARTED 07/17/22 FOR 14 DAYS Discharge Orders: Discharge Order (Routine); Ordered 07/22/22 Ordered By: Santos Farrell Admission Data Admit Date/Time: 07/21/22 18:34 Attending Provider: Deb Cantu Admit Provider: Nick Morrell Primary Care Provider: Maia Moore Other Providers: Bertrand Sun Salvatore M. ; [facility] Other Interventions: Discharge Summary Assessment (RN) Last Done: 07/22/22 10:59 Supervising Physician Co-Signing Physician Notes Resident Physician Supervision Note: I independently interviewed and examined the patient and verified the smith history and physical, reviewed labs and image studies and agree with resident findings and care plan. Resident Activity Tracking Resident Involvement: Resident Care Provided Care Provided: Adult Hospital Medicine
[2022-07-22 11:00] VITALS: BP 137/74
[2022-07-22] MEDS: SILVER SULFADIAZINE 1% CR 50 GM JAR TOP SCH (11:02)
--- NOTE | 2022-07-29 14:07 | Billing Data ---
Date of Service July 21, 2022 Coding Level of Care Code 84154 Subseq Obs Care Lvl 3
== END 2022-07-22 11:40 | disposition home health service (06) ==
LOC: ED 15:28 → 3N 15:28 → SUATTDRO 18:34 → 3N 20:03

== ENCOUNTER 2022-11-15 15:40 | Inpatient (IN) ==
[2022-11-15] MEDS ORDERED: ACETAMINOPHEN 500 MG TAB PO STA (16:01)
--- NOTE | 2022-11-15 16:22 | Emergency Department Note ---
Impression & Plan Sepsis, Cutaneous T-cell lymphoma, Open wound of left hip, Radiation necrosis of skin and subcutaneous, Cellulitis, Wound infection ED Provider Note NAME: PENNY LORENZO AGE: 72 SEX: M : 1950 ARRIVES VIA: Walk-In INFORMANT: Patient, ED PROVIDER(S): Carlo Gonzalez MD CHIEF COMPLAINT: Fever, nausea vomiting, hip wound MEDICAL DECISION MAKING: Patient presented due to concern for hip wound in the setting of sepsis as the patient was tachycardic and febrile. Sepsis orders were initiated including establishing an IV giving 2 L of IV fluids, empiric antibiotics included IV vancomycin and Zosyn. A wound culture was taken from the site of the patient's significant right-sided hip wound. A CT of the right leg was also ordered to rule out abscess or osteomyelitis. Patient's blood work did show leukopenia and anemia with normal platelet count. The patient does have hyponatremia and hypomagnesemia. Patient's initial lactate normal and the patient's procalcitonin was not elevated. The patient did receive antipyretics as well. CT of the right leg did not show any evidence of osteomyelitis or abscess. The patient's chest x-ray is clear. Upon subsequent reassessment he did have improvement in symptoms including his tachycardia. Given the patient's known history of wound cellulitis sepsis and the fact that the patient is on chemotherapy do believe the patient would benefit from admission at this time. I did speak with the on-call hospitalist service Dr. Perez and the patient was admitted. Prior /Outside records reviewed: I did review the patient's most recent wound care visit with Dr. Sorto of general surgery from 11/08/22. Differential diagnosis: Sepsis, UTI, pneumonia, metabolic, electrolyte abnormalities, cardiac sources, intracerebral event, toxicologic, neurologic, as well as other pathologies. Diagnostics, as interpreted by me: ECG: Normal sinus rhythm, rate of 74, normal intervals, normal axis. Cardiac monitoring: An order was placed for continuous cardiac monitoring. The monitor shows a rate of 88 with regular rhythm. Patient was placed on pulse oximetry Medical decision rules: none Imaging studies: See below HPI: Patient presents due to concern for fever. The patient is also had associated nausea with vomiting. Patient denies any abdominal pain. The patient has had some mild diarrhea. Patient does have a known history of T-cell lymphoma and has received chemotherapy and receives this every week via injection through his port. The patient also does have a right lateral hip wound which has been chronic in nature for which she does follow with wound care. Patient denies any chest pains or shortness of breath no cough. Patient states he is compliant with his medications. The patient does follow with Dr. Olmos with oncology as well as with Dr. Sorto for wound care. The patient denies any alcohol or tobacco use. No blood in the vomit. Patient denies any dysuria or hematuria. PAST MEDICAL HISTORY: See Below PAST SURGICAL HISTORY: See Below SOCIAL HISTORY: See Below HOME MEDICATIONS: See Below ALLERGIES: See Below VITALS: See Below PHYSICAL EXAMINATION: GENERAL: NAD, wearing a mask, non-toxic. EYE EXAM: Normal conjunctiva. PERRL, no anisocoria and EOM's grossly intact w/o pain. NECK: Supple, no nuchal rigidity, no adenopathy, non-tender. No signs of meningismus. FROM of the neck with good chin to chest and neck extension. No stridor. LUNGS: Clear to auscultation. Normal chest wall mechanics. HEART: Tachycardic and regular, no MRG. ABDOMEN: Abdomen soft, non-tender, normo-active bowel sounds, no masses, no rebound or guarding. BACK: No CVA TTP. SKIN: No rashes and no bruising. UPPER EXTREMITIES: Upper extremities are grossly normal. LOWER EXTREMITIES: Significant deep ulceration to the right lateral hip approximately 5 x 3 cm, appearance of granulation tissue versus infectious drainage, surrounding erythema and calor noted. No crepitus, neurovascular intact distally. NEURO EXAM: A&O x3, cranial nerves II-XII grossly intact, normal speech, moves all 4 extremities. Past Med/Surg History Medical History Acid reflux disease Arthritis BPH (benign prostatic hyperplasia) Cutaneous T-cell lymphoma Encounter for pre-operative examination External hemorrhoids Gout Hearing difficulty History of chemotherapy Brentuximab (01/03/2019 - 05/30/2019 x 8 cycles) Brentuximab (11/07/2021 - Present x 6 cycles thus far) Psoriasis Radiation necrosis of skin and subcutaneous UTI (urinary tract infection) Vestibular schwannoma Surgical History History of hemorrhoidectomy History of hernia repair Hx of lymph node biopsy S/P debridement 07/15/22 Dr. 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, stage IV, wound size about 10 x 10 cm; Debridement of wound on the left lower leg, stage IV, size about 3 x 4 cm Family History Mother Myocardial infarction Father Myocardial infarction Sister Cancer, Onset Age: 70 do not know what type Denies family history of Ovarian cancer Prostate cancer Breast cancer Colorectal cancer Social History Smoking Status: Former smoker Tobacco Type: Cigarettes Age Started Using Tobacco: 16; Age Quit Using Tobacco: 40; packs per day: 1.5; Cigarettes Per Day: 30; Second Hand Exposure: No; Do You Dip or Chew Tobacco: No; Tobacco Cessation Education Requested by Patient: No Hx Alcohol Use: No Hx Substance Use: No Preferred Language: Czech Communication Ability: Effective Visual Impairment: No Limitations 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 Automatic Required: No Beliefs That Will Affect Care: None marital status: Current Living Situation: Spouse current occupational status: employed current occupation: [employer] How many Children do You have: 1 Other Information That Helps Us Care for You: No Feels Safe at Home: Yes Safety Concerns: Feels Safe At This Time Childhood Exposure to Second-Hand Smoke: Yes caffeine: Yes (pepsi 24 oz per day) during the past year weight has: remained stable Dental Care, Regularly: No Physical Activity Frequency: 1-2 Times per Week Physical Activity Frequency Comment: more active in the summer; 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 Mercer) Assistive Devices: Cane and Walker Assistive Devices Comment: cane/walker prn Allergies Allergies Allergy/AdvReac Type Severity Reaction Status Date / Time No Known Allergies Allergy Verified 11/15/22 17:04 Home Meds Home Medications Medication Instructions Recorded Confirmed docusate sodium 100 mg capsule 100 mg PO DAILY 04/24/19 11/15/22 (Dulcolax Stool Softener (docusate)) triamcinolone acetonide 0.1 % 1 applic topical BID PRN Rash #1 g 10/21/20 11/15/22 topical cream acetaminophen 500 mg tablet 1,000 mg PO Q6H PRN Fever Or Pain 11/08/20 11/15/22 (Tylenol Extra Strength) ondansetron HCl 8 mg tablet 8 mg PO Q8H PRN Nausea 06/01/22 11/15/22 oxycodone 5 mg capsule 5 mg PO Q8H PRN Pain 06/01/22 11/15/22 prochlorperazine maleate 10 mg 10 mg PO Q6H PRN Nausea 06/01/22 11/15/22 tablet (Compazine) vitamin C 500 mg-multivitamin with 1 tab PO DAILY 06/01/22 11/15/22 minerals chewable tablet (Emergen-C) pembrolizumab 25 mg/mL intravenous 0 mg IV .Q 3 weeks 07/24/22 11/15/22 solution (Keytruda) morphine 15 mg tablet,extended 15 mg PO Q12H 10/31/22 11/15/22 release allopurinol 100 mg tablet 100 mg PO DAILY 11/15/22 11/15/22 dexamethasone 4 mg tablet 4 mg PO DIRECTED 11/15/22 11/15/22 hydromorphone 4 mg tablet 4 mg PO DIRECTED PRN Pain 11/15/22 11/15/22 metronidazole 1 % topical gel 1 applic topical BID PRN NEEDED 11/15/22 11/15/22 (Metrogel) morphine 30 mg tablet,extended 30 mg PO Q12H 11/15/22 11/15/22 release Previous Rx's Medication Instructions Recorded omeprazole 20 mg capsule,delayed 20 mg PO DAILY #90 caps 05/25/20 release doxepin 10 mg capsule 20 mg PO DAILY #60 caps 08/23/20 lisinopril 10 mg tablet 10 mg PO DAILY #90 tabs 10/12/21 amlodipine 10 mg tablet 10 mg PO DAILY #90 tabs 03/20/22 atorvastatin 20 mg tablet 20 mg PO DAILY #90 tabs 07/24/22 clobetasol 0.05 % topical ointment 1 applic topical DAILY #30 grams 08/30/22 collagenase clostridium histo. 250 1 applic topical DAILY #30 grams 10/11/22 unit/gram topical ointment (Santyl) tamsulosin 0.4 mg capsule 0.4 mg PO HS 30 days #90 caps 11/01/22 Results & Data (ED) Vital Signs Vital Signs - 24 hr 11/15/22 15:51 11/15/22 17:12 11/15/22 17:00 Temperature 38.5 C H Temperature Source Temporal Artery Scan Pulse Rate 108 H Pulse Rate [Apical] 84 Respiratory Rate 18 14 Respiratory Effort / Characteristics Non-Labored Spontaneous Respiratory Depth Normal Blood Pressure 138/69 Blood Pressure [Right Arm] 139/64 Blood Pressure Mean 92 Blood Pressure Mean [Right Arm] 89 Pulse Oximetry 95 96 92 Oxygen Delivery Method Room Air Room Air Room Air Sepsis Recent Fever Within 48 Hours Yes Sepsis New/Unexplained Change in Mental Status No Sepsis Action Taken by Nursing No Action Required 11/15/22 17:30 11/15/22 18:00 11/15/22 17:26 Temperature Temperature Source Pulse Rate 84 Pulse Rate [Apical] 85 87 Respiratory Rate 16 16 Respiratory Effort / Characteristics Non-Labored Spontaneous Non-Labored Spontaneous Respiratory Depth Normal Normal Blood Pressure Blood Pressure [Right Arm] 123/67 120/65 Blood Pressure Mean Blood Pressure Mean [Right Arm] 85 83 Pulse Oximetry 94 96 Oxygen Delivery Method Room Air Room Air Sepsis Recent Fever Within 48 Hours Sepsis New/Unexplained Change in Mental Status Sepsis Action Taken by Nursing 11/15/22 18:30 Temperature Temperature Source Pulse Rate Pulse Rate [Apical] 82 Respiratory Rate 12 Respiratory Effort / Characteristics Non-Labored Spontaneous Respiratory Depth Normal Blood Pressure Blood Pressure [Right Arm] 121/65 Blood Pressure Mean Blood Pressure Mean [Right Arm] 83 Pulse Oximetry 96 Oxygen Delivery Method Room Air Sepsis Recent Fever Within 48 Hours Sepsis New/Unexplained Change in Mental Status Sepsis Action Taken by Correction Medications Current Medication List: was personally reviewed by me Laboratory Data Attestation: I reviewed the patient's lab results. 11/15/22 16:03 11/15/22 16:03 Lab Results 11/15/22 11/15/22 11/15/22 Range/Units 16:03 16:03 16:03 WBC 2.51 L (4.8-10.8) K/ul RBC 3.62 L (4.70-6.10) M/uL Hgb 10.2 L (14.0-18.0) g/dl Hct 29.7 L (42.0-52.0) % MCV 82.0 (80.0-100.0) fL MCH 28.2 (25.0-34.0) pg MCHC 34.3 (32.0-36.0) g/dL RDW Std Deviation 48.9 H (36.4-46.3) fL RDW Coeff of [place] 16.2 H (11.5-14.5) % Plt Count 167 (130-400) K/uL MPV 9.7 (9.4-12.4) fL Immature Gran % (Auto) 0.4 % Neut % (Auto) 73.3 % Lymph % (Auto) 18.7 % [place] % (Auto) 7.2 % Eos % (Auto) 0.0 % Baso % (Auto) 0.4 % Neut # (Auto) 1.84 (1.40-6.50) K/uL Lymph # (Auto) 0.47 L (1.2-3.4) K/uL [place] # (Auto) 0.18 (0.11-0.59) K/uL Eos # (Auto) 0.00 (0-0.50) K/uL Baso # (Auto) 0.01 (0-0.2) K/uL Immature Gran # (Auto) 0.01 (0.01-0.20) K/uL PT INR APTT PTT Ratio Sodium 130 L (136-145) mmol/L Potassium 3.9 (3.5-5.1) mmol/L Chloride 95 L (98-107) mmol/L Carbon Dioxide 26 (21-32) mmol/L Anion Gap 9 (3-11) BUN 14 (6-23) mg/dl Creatinine 1.00 (0.6-1.4) mg/dl Est Cr Clr Drug Dosing Not Reportable Est GFR ( Amer) 86.8 ml/min Est GFR (Non-Af Amer) 74.9 ml/min BUN/Creatinine Ratio 14.0 (10-20) Glucose 117 H (70-99(Fasting)) mg/dl Osmolality (280-300) mOsm/kg Lactate (0.4-2.0) mmol/L Calcium 9.1 (8.5-10.1) mg/dl Magnesium (1.7-2.4) mg/dl Total Bilirubin 0.5 (0.2-1.0) mg/dl Direct Bilirubin (0-0.2) mg/dl AST 22 (13-39) U/L ALT 9 (7-52) U/L Alkaline Phosphatase 66 (34-104) U/L Troponin I High Sens (0-20) pg/ml Total Protein 6.4 (6.0-8.3) gm/dl Albumin 3.3 L (3.4-5.0) gm/dl Globulin 3.1 (2.5-4.0) gm/dl Albumin/Globulin Ratio 1.1 (0.9-2) Procalcitonin 0.34 (0-0.5) ng/ml Urine Color Urine Appearance (Clear) Urine pH (4.5-7.5) Ur Specific [place] (1.000-1.030) Urine Protein (Negative) Urine Glucose (UA) (Negative) Urine Ketones (Negative) Urine Blood (Negative) Urine Nitrite (Negative) Urine Bilirubin (Negative) Urine Urobilinogen (Negative) Ur Leukocyte Esterase (Negative) Urine Osmolality (500-800) mOsm/kg Ur Random Sodium mmol/L SARS-CoV-2 (PCR) (Negative) Influenza Type A (PCR) (Neg) Influenza Type B (PCR) (Neg) RSV (RT-PCR) (Neg) 11/15/22 11/15/22 11/15/22 Range/Units 16:03 16:03 16:03 WBC (4.8-10.8) K/ul RBC (4.70-6.10) M/uL Hgb (14.0-18.0) g/dl Hct (42.0-52.0) % MCV (80.0-100.0) fL MCH (25.0-34.0) pg MCHC (32.0-36.0) g/dL RDW Std Deviation (36.4-46.3) fL RDW Coeff of [place]aji (11.5-14.5) % Plt Count (130-400) K/uL MPV (9.4-12.4) fL Immature Gran % (Auto) % Neut % (Auto) % Lymph % (Auto) % [place] % (Auto) % Eos % (Auto) % Baso % (Auto) % Neut # (Auto) (1.40-6.50) K/uL Lymph # (Auto) (1.2-3.4) K/uL [place] # (Auto) (0.11-0.59) K/uL Eos # (Auto) (0-0.50) K/uL Baso # (Auto) (0-0.2) K/uL Immature Gran # (Auto) (0.01-0.20) K/uL PT Cancelled INR Cancelled APTT Cancelled PTT Ratio Cancelled Sodium (136-145) mmol/L Potassium (3.5-5.1) mmol/L Chloride (98-107) mmol/L Carbon Dioxide (21-32) mmol/L Anion Gap (3-11) BUN (6-23) mg/dl Creatinine (0.6-1.4) mg/dl Est Cr Clr Drug Dosing Est GFR ( Amer) ml/min Est GFR (Non-Af Amer) ml/min BUN/Creatinine Ratio (10-20) Glucose (70-99(Fasting)) mg/dl Osmolality 268 L (280-300) mOsm/kg Lactate (0.4-2.0) mmol/L Calcium (8.5-10.1) mg/dl Magnesium 1.3 L (1.7-2.4) mg/dl Total Bilirubin 0.5 (0.2-1.0) mg/dl Direct Bilirubin 0.1 (0-0.2) mg/dl AST 24 (13-39) U/L ALT 10 (7-52) U/L Alkaline Phosphatase 68 (34-104) U/L Troponin I High Sens 12.4 (0-20) pg/ml Total Protein 6.4 (6.0-8.3) gm/dl Albumin 3.2 L (3.4-5.0) gm/dl Globulin (2.5-4.0) gm/dl Albumin/Globulin Ratio (0.9-2) Procalcitonin (0-0.5) ng/ml Urine Color Urine Appearance (Clear) Urine pH (4.5-7.5) Ur Specific [place] (1.000-1.030) Urine Protein (Negative) Urine Glucose (UA) (Negative) Urine Ketones (Negative) Urine Blood (Negative) Urine Nitrite (Negative) Urine Bilirubin (Negative) Urine Urobilinogen (Negative) Ur Leukocyte Esterase (Negative) Urine Osmolality (500-800) mOsm/kg Ur Random Sodium mmol/L SARS-CoV-2 (PCR) (Negative) Influenza Type A (PCR) (Neg) Influenza Type B (PCR) (Neg) RSV (RT-PCR) (Neg) 11/15/22 11/15/22 11/15/22 Range/Units 16:14 16:42 18:16 WBC (4.8-10.8) K/ul RBC (4.70-6.10) M/uL Hgb (14.0-18.0) g/dl Hct (42.0-52.0) % MCV (80.0-100.0) fL MCH (25.0-34.0) pg MCHC (32.0-36.0) g/dL RDW Std Deviation (36.4-46.3) fL RDW Coeff of Alhaji (11.5-14.5) % Plt Count (130-400) K/uL MPV (9.4-12.4) fL Immature Gran % (Auto) % Neut % (Auto) % Lymph % (Auto) % [place] % (Auto) % Eos % (Auto) % Baso % (Auto) % Neut # (Auto) (1.40-6.50) K/uL Lymph # (Auto) (1.2-3.4) K/uL [place] # (Auto) (0.11-0.59) K/uL Eos # (Auto) (0-0.50) K/uL Baso # (Auto) (0-0.2) K/uL Immature Gran # (Auto) (0.01-0.20) K/uL PT INR APTT PTT Ratio Sodium (136-145) mmol/L Potassium (3.5-5.1) mmol/L Chloride (98-107) mmol/L Carbon Dioxide (21-32) mmol/L Anion Gap (3-11) BUN (6-23) mg/dl Creatinine (0.6-1.4) mg/dl Est Cr Clr Drug Dosing Est GFR ( Amer) ml/min Est GFR (Non-Af Amer) ml/min BUN/Creatinine Ratio (10-20) Glucose (70-99(Fasting)) mg/dl Osmolality (280-300) mOsm/kg Lactate 1.0 1.2 (0.4-2.0) mmol/L Calcium (8.5-10.1) mg/dl Magnesium (1.7-2.4) mg/dl Total Bilirubin (0.2-1.0) mg/dl Direct Bilirubin (0-0.2) mg/dl AST (13-39) U/L ALT (7-52) U/L Alkaline Phosphatase (34-104) U/L Troponin I High Sens (0-20) pg/ml Total Protein (6.0-8.3) gm/dl Albumin (3.4-5.0) gm/dl Globulin (2.5-4.0) gm/dl Albumin/Globulin Ratio (0.9-2) Procalcitonin (0-0.5) ng/ml Urine Color Urine Appearance (Clear) Urine pH (4.5-7.5) Ur Specific [place] (1.000-1.030) Urine Protein (Negative) Urine Glucose (UA) (Negative) Urine Ketones (Negative) Urine Blood (Negative) Urine Nitrite (Negative) Urine Bilirubin (Negative) Urine Urobilinogen (Negative) Ur Leukocyte Esterase (Negative) Urine Osmolality (500-800) mOsm/kg Ur Random Sodium mmol/L SARS-CoV-2 (PCR) NEGATIVE (Negative) Influenza Type A (PCR) Negative (Neg) Influenza Type B (PCR) Negative (Neg) RSV (RT-PCR) Negative (Neg) 11/15/22 11/15/22 11/15/22 Range/Units 18:16 18:55 18:55 WBC (4.8-10.8) K/ul RBC (4.70-6.10) M/uL Hgb (14.0-18.0) g/dl Hct (42.0-52.0) % MCV (80.0-100.0) fL MCH (25.0-34.0) pg MCHC (32.0-36.0) g/dL RDW Std Deviation (36.4-46.3) fL RDW Coeff of [place] (11.5-14.5) % Plt Count (130-400) K/uL MPV (9.4-12.4) fL Immature Gran % (Auto) % Neut % (Auto) % Lymph % (Auto) % [place] % (Auto) % Eos % (Auto) % Baso % (Auto) % Neut # (Auto) (1.40-6.50) K/uL Lymph # (Auto) (1.2-3.4) K/uL [place] # (Auto) (0.11-0.59) K/uL Eos # (Auto) (0-0.50) K/uL Baso # (Auto) (0-0.2) K/uL Immature Gran # (Auto) (0.01-0.20) K/uL PT 12.8 H INR 1.2 H APTT 26.1 PTT Ratio 0.9 Sodium (136-145) mmol/L Potassium (3.5-5.1) mmol/L Chloride (98-107) mmol/L Carbon Dioxide (21-32) mmol/L Anion Gap (3-11) BUN (6-23) mg/dl Creatinine (0.6-1.4) mg/dl Est Cr Clr Drug Dosing Est GFR ( Amer) ml/min Est GFR (Non-Af Amer) ml/min BUN/Creatinine Ratio (10-20) Glucose (70-99(Fasting)) mg/dl Osmolality (280-300) mOsm/kg Lactate (0.4-2.0) mmol/L Calcium (8.5-10.1) mg/dl Magnesium (1.7-2.4) mg/dl Total Bilirubin (0.2-1.0) mg/dl Direct Bilirubin (0-0.2) mg/dl AST (13-39) U/L ALT (7-52) U/L Alkaline Phosphatase (34-104) U/L Troponin I High Sens (0-20) pg/ml Total Protein (6.0-8.3) gm/dl Albumin (3.4-5.0) gm/dl Globulin (2.5-4.0) gm/dl Albumin/Globulin Ratio (0.9-2) Procalcitonin (0-0.5) ng/ml Urine Color Yellow Urine Appearance Clear (Clear) Urine pH 6.5 (4.5-7.5) Ur Specific [place] 1.022 (1.000-1.030) Urine Protein Negative (Negative) Urine Glucose (UA) Negative (Negative) Urine Ketones 1+ H (Negative) Urine Blood Negative (Negative) Urine Nitrite Negative (Negative) Urine Bilirubin Negative (Negative) Urine Urobilinogen Negative (Negative) Ur Leukocyte Esterase Negative (Negative) Urine Osmolality 195 L (500-800) mOsm/kg Ur Random Sodium mmol/L SARS-CoV-2 (PCR) (Negative) Influenza Type A (PCR) (Neg) Influenza Type B (PCR) (Neg) RSV (RT-PCR) (Neg) 11/15/22 Range/Units 18:55 WBC (4.8-10.8) K/ul RBC (4.70-6.10) M/uL Hgb (14.0-18.0) g/dl Hct (42.0-52.0) % MCV (80.0-100.0) fL MCH (25.0-34.0) pg MCHC (32.0-36.0) g/dL RDW Std Deviation (36.4-46.3) fL RDW Coeff of [place] (11.5-14.5) % Plt Count (130-400) K/uL MPV (9.4-12.4) fL Immature Gran % (Auto) % Neut % (Auto) % Lymph % (Auto) % [place] % (Auto) % Eos % (Auto) % Baso % (Auto) % Neut # (Auto) (1.40-6.50) K/uL Lymph # (Auto) (1.2-3.4) K/uL [place] # (Auto) (0.11-0.59) K/uL Eos # (Auto) (0-0.50) K/uL Baso # (Auto) (0-0.2) K/uL Immature Gran # (Auto) (0.01-0.20) K/uL PT INR APTT PTT Ratio Sodium (136-145) mmol/L Potassium (3.5-5.1) mmol/L Chloride (98-107) mmol/L Carbon Dioxide (21-32) mmol/L Anion Gap (3-11) BUN (6-23) mg/dl Creatinine (0.6-1.4) mg/dl Est Cr Clr Drug Dosing Est GFR ( Amer) ml/min Est GFR (Non-Af Amer) ml/min BUN/Creatinine Ratio (10-20) Glucose (70-99(Fasting)) mg/dl Osmolality (280-300) mOsm/kg Lactate (0.4-2.0) mmol/L Calcium (8.5-10.1) mg/dl Magnesium (1.7-2.4) mg/dl Total Bilirubin (0.2-1.0) mg/dl Direct Bilirubin (0-0.2) mg/dl AST (13-39) U/L ALT (7-52) U/L Alkaline Phosphatase (34-104) U/L Troponin I High Sens (0-20) pg/ml Total Protein (6.0-8.3) gm/dl Albumin (3.4-5.0) gm/dl Globulin (2.5-4.0) gm/dl Albumin/Globulin Ratio (0.9-2) Procalcitonin (0-0.5) ng/ml Urine Color Urine Appearance (Clear) Urine pH (4.5-7.5) Ur Specific [place] (1.000-1.030) Urine Protein (Negative) Urine Glucose (UA) (Negative) Urine Ketones (Negative) Urine Blood (Negative) Urine Nitrite (Negative) Urine Bilirubin (Negative) Urine Urobilinogen (Negative) Ur Leukocyte Esterase (Negative) Urine Osmolality (500-800) mOsm/kg Ur Random Sodium 24 mmol/L SARS-CoV-2 (PCR) (Negative) Influenza Type A (PCR) (Neg) Influenza Type B (PCR) (Neg) RSV (RT-PCR) (Neg) Administered Medications Allopurinol (Allopurinol 100 Mg Tab) 100 mg PO DAILY PAN Stop: 12/16/22 08:59 Last Admin: 11/16/22 08:34 Dose: 100 mg Documented By: RICHARD Amlodipine Besylate (Amlodipine Besylate 5 Mg Tab) 10 mg PO DAILY PAN Stop: 12/16/22 08:59 Last Admin: 11/16/22 08:34 Dose: 10 mg Documented By: RICHARD Atorvastatin Calcium (Atorvastatin 20 Mg Tab) 20 mg PO DAILY PAN Stop: 12/16/22 08:59 Last Admin: 11/16/22 08:34 Dose: 20 mg Documented By: RICHARD Dexamethasone (Dexamethasone 4 Mg Tab) 4 mg PO BID PAN Stop: 12/15/22 21:55 Last Admin: 11/16/22 08:34 Dose: 4 mg Documented By: Admin: 11/16/22 00:01 Dose: 4 mg Documented By: LINDSAY Docusate Sodium (Docusate Sodium 100 Mg Cap) 100 mg PO DAILY PAN Stop: 12/16/22 08:59 Last Admin: 11/16/22 08:34 Dose: 100 mg Documented By: RICHARD Doxepin HCl (Doxepin Hcl 10 Mg Capsule) 20 mg PO DAILY PAN Stop: 12/16/22 08:59 Last Admin: 11/16/22 08:34 Dose: 20 mg Documented By: RICHARD Enoxaparin Sodium (Enoxaparin Inj 40 Mg/0.4 Ml Syr) 40 mg SQ HS PAN Stop: 12/15/22 22:59 Last Admin: 11/16/22 00:01 Dose: 40 mg Documented By: LINDSAY Piperacillin Sod/Tazobactam (Sod 4.5 gm/ Dextrose) 120 mls @ 30 mls/hr IV Q8H [facility]; Protocol Stop: 11/18/22 00:00 Last Admin: 11/16/22 08:40 Dose: 30 mls/hr Documented By: Infusion: 11/16/22 05:05 Dose: 0 mls/hr Documented By: Admin: 11/16/22 01:00 Dose: 30 mls/hr Documented By: LINDSAY Lisinopril (Lisinopril 10 Mg Tab) 10 mg PO DAILY PAN Stop: 12/16/22 08:59 Last Admin: 11/16/22 08:35 Dose: 10 mg Documented By: RICHARD Pantoprazole Sodium (Pantoprazole 40 Mg Tab) 40 mg PO DAILY PAN Stop: 12/16/22 08:59 Last Admin: 11/16/22 08:34 Dose: 40 mg Documented By: RICHARD Tamsulosin HCl (Tamsulosin Hcl 0.4 Mg Cap) 0.4 mg PO HS [facility] Stop: 12/15/22 21:55 Last Admin: 11/16/22 00:01 Dose: 0.4 mg Documented By: LINDSAY Discontinued Medications Acetaminophen (Acetaminophen 500 Mg Tab) 1,000 mg PO NOW STA Stop: 11/15/22 16:02 Last Admin: 11/15/22 16:08 Dose: 1,000 mg Documented By: JOSIAH Sodium Chloride (Nss 1000ml) 1,000 mls @ 999 mls/hr IV .Q1H1M PAN Stop: 11/15/22 18:45 Last Infusion: 11/15/22 19:24 Dose: 0 mls/hr Documented By: Admin: 02/15/23 18:21 Dose: 999 mls/hr Documented By: Infusion: 11/15/22 18:21 Dose: 0 mls/hr Documented By: Admin: 11/15/22 17:13 Dose: 999 mls/hr Documented By: HILDA Piperacillin Sod/Tazobactam Sod (Zosyn) 4.5 gm in 120 mls @ 240 mls/hr IV NOW ONE Stop: 11/15/22 17:07 Last Infusion: 11/15/22 17:50 Dose: 0 mls/hr Documented By: Admin: 11/15/22 17:20 Dose: 240 mls/hr Documented By: HILDA Vancomycin HCl 2,000 mg/ (Sodium Chloride) 540 mls @ 200 mls/hr IV NOW ONE Stop: 11/15/22 19:19 Last Admin: 11/15/22 18:17 Dose: 200 mls/hr Documented By: HILDA Magnesium Sulfate/Dextrose (Magnesium Sulfate / D5w) 1 gm in 100 mls @ 50 mls/hr IV Q2H PAN Stop: 11/16/22 03:29 Last Infusion: 11/16/22 03:44 Dose: 0 mls/hr Documented By: Admin: 11/16/22 01:18 Dose: 50 mls/hr Documented By: Infusion: 11/16/22 01:18 Dose: 50 mls/hr Documented By: Admin: 11/16/22 00:01 Dose: 50 mls/hr Documented By: Infusion: 11/16/22 00:01 Dose: 50 mls/hr Documented By: Admin: 11/15/22 22:21 Dose: 50 mls/hr Documented By: Infusion: 11/15/22 21:38 Dose: 50 mls/hr Documented By: Admin: 11/15/22 19:38 Dose: 50 mls/hr Documented By: MALGORZATA Parenteral Electrolytes (Normosol-R) 1,000 mls @ 125 mls/hr IV .Q8H PAN Stop: 12/15/22 21:55 Last Infusion: 11/16/22 11:46 Dose: 0 mls/hr Documented By: Admin: 11/16/22 05:44 Dose: 125 mls/hr Documented By: Infusion: 11/16/22 05:44 Dose: 125 mls/hr Documented By: Admin: 11/15/22 22:30 Dose: 125 mls/hr Documented By: LINDSAY Ioversol (Optiray 350 100ml) 88 ml IV ONCE ONE Stop: 11/15/22 17:55 Last Admin: 11/15/22 17:56 Dose: 88 ml Documented By: MIKAELA Magnesium Sulfate/Dextrose (Magnesium Sulfate 1gm / D5w Bag) Confirm A dministered Dose 1 gm IV .STK-MED ONE Stop: 11/15/22 19:37 Last Admin: 11/15/22 19:39 Dose: Not Given Documented By: MALGORZATA Morphine Sulfate (Morphine Sulfate Cr 15 Mg Tabcr) 30 mg PO BID PAN Stop: 11/29/22 22:44 Last Admin: 11/16/22 08:39 Dose: 30 mg Documented By: Admin: 11/16/22 00:01 Dose: 30 mg Documented By: LINDSAY Morphine Sulfate (Morphine Sulfate Cr 15 Mg Tabcr) 30 mg PO ONE ONE Stop: 11/16/22 11:31 Last Admin: 11/16/22 11:52 Dose: 30 mg Documented By: RICHARD Imaging Data Radiologist's Impression: Chest X-Ray 11/15/22 16:38 XR chest 1V portable CLINICAL HISTORY: Sepsis TECHNIQUE: Single frontal radiograph of the chest was obtained. Comparison: Comparison is made to chest radiograph 07/14/2022 FINDINGS: A port catheter is seen. Calcified aortic knob is seen. The lungs are clear. No evidence of pleural effusion or pneumothorax. IMPRESSION: No acute abnormalities and in particular no evidence of pneumonia. ACT 112: Negative or not required by law. Electronically signed by: Richard Hayes M.D. 11/15/2022 5:[address] 11/15/22 16:38 CT femur RT w con CLINICAL HISTORY: large deep proximal/lat leg ulceration, sepsis TECHNIQUE: Multidetector row helical CT of the right femur was performed without intravenous contrast. Coronal and sagittal reformations were obtained. Automated dose lowering techniques and/or adjustment according to patient size were utiliz ed for this examination. CT DOSE: 407.45 mGy.cm Comparison: None available at the time of this dictation. FINDINGS: The osseous structures are without fracture or dislocation. The joint spaces are maintained. No joint effusion is seen. There is a large lateral ulcer at the level of the proximal femur. There is skin thickening and subcutaneous edema without evidence of drainable fluid collection. Bladder is under distended. IMPRESSION: There is a large lateral ulcer without evidence of abscess or osteomyelitis. ACT 112: Negative or not required by law. Electronically signed by: Richard Hayes M.D. 11/15/2022 6:04 PM Discharge Plan Visit Data Chief Complaint: Leg Injury/Pain Stated Complaint: R SIDE FROM HIP DOWN PAIN ED Provider: Carlo Gonzalez Discharge Problem: Sepsis, Cutaneous T-cell lymphoma, Open wound of left hip, Radiation necrosis of skin and subcutaneous, Cellulitis, Wound infection Patient Disposition: Admitted As Inpatient Discharge Instructions Interventions: ED Discharge Assessment Last Done: 11/15/22 21:12 Sepsis Qualifiers: Sepsis type: sepsis due to unspecified organism Sepsis acute organ dysfunction status: without acute organ dysfunction Qualified Code(s): A41.9 - Sepsis, unspecified organism Cutaneous T-cell lymphoma Qualifiers: Lymphoma site: unspecified region Qualified Code(s): C84.A0 - Cutaneous T-cell lymphoma, unspecified, unspecified site Open wound of left hip Qualifiers: Encounter type: initial encounter Qualified Code(s): S71.002A - Unspecified open wound, left hip, initial encounter Cellulitis Qualifiers: Site of cellulitis: extremity Site of cellulitis of extremity: lower extremity Laterality: right Qualified Code(s): L03.115 - Cellulitis of right lower limb
[2022-11-15 16:34] LABS: Hematocrit (blood only) 29.7 % (42.0-52.0); Hemoglobin 10.2 g/dl (14.0-18.0); Mean Corpuscular Hemoglobin 28.2 pg (25.0-34.0); Mean Corpuscular Hgb Conc 34.3 g/dL (32.0-36.0); Mean Platelet Volume 9.7 fL (9.4-12.4); Platelet Count 167 K/uL (130-400); RDW Coefficient of Variation 16.2 % (11.5-14.5); RDW Standard Deviation 48.9 fL (36.4-46.3); Red Blood Count 3.62 M/uL (4.70-6.10); White Blood Count 2.51 K/ul (4.8-10.8)
[2022-11-15] MEDS ORDERED: VANCOMYCIN HCL 2,000 MG in SODIUM CHLORIDE 0.9% 500 ML IV ONE (16:38)
[2022-11-15] MEDS ORDERED: PIPERACILLIN/TAZOBACTAM 4.5 GM/120 ML BAG IV ONE (16:38)
[2022-11-15] MEDS ORDERED: VANCOMYCIN CONSULT ACTIVE PRN (16:38)
[2022-11-15 16:39] LABS: Alanine Aminotransferase 9 U/L (7-52); Albumin Globulin Ratio 1.1 (0.9-2); Albumin Level 3.3 gm/dl (3.4-5.0); Alkaline Phosphatase 66 U/L (34-104); Anion Gap 9 (3-11); Aspartate Aminotransferase 22 U/L (13-39); Bilirubin,Total 0.5 mg/dl (0.2-1.0); Blood Urea Nitrogen 14 mg/dl (6-23); Calcium 9.1 mg/dl (8.5-10.1); Carbon Dioxide 26 mmol/L (21-32); Chloride 95 mmol/L (98-107); Est GFR (African American) 86.8 ml/min; Est GFR (Non-African American) 74.9 ml/min; Globulin 3.1 gm/dl (2.5-4.0); Glucose 117 mg/dl (70-99(Fasting)); Potassium 3.9 mmol/L (3.5-5.1); Sodium 130 mmol/L (136-145); Total Protein 6.4 gm/dl (6.0-8.3)
[2022-11-15 17:05] LABS: Basophils # (auto) 0.01 K/uL (0-0.2); Basophils % (auto) 0.4 %; Immature Granulocytes # (auto) 0.01 K/uL (0.01-0.20); Immature Granulocytes % (auto) 0.4 %; Lymphocytes # (auto) 0.47 K/uL (1.2-3.4); Lymphocytes % (auto) 18.7 %; Monocytes # (auto) 0.18 K/uL (0.11-0.59); Monocytes % (auto) 7.2 %; Neutrophils # (auto) 1.84 K/uL (1.40-6.50); Neutrophils % (auto) 73.3 %
[2022-11-15 17:09] LABS: Influenza A virus by PCR Negative (Neg); Influenza B virus by PCR Negative (Neg); RSV by PCR Negative (Neg); SARS CoV2 RNA(COVID-19) Ceph NEGATIVE (Negative)
[2022-11-15] MEDS: SODIUM CHLORIDE 0.9% 1000ML 1,000 ML IV SCH ×2 (17:13→18:21)
--- NOTE | 2022-11-15 17:19 | XRay Report ---
XR chest 1V portable CLINICAL HISTORY: Sepsis TECHNIQUE: Single frontal radiograph of the chest was obtained. Comparison: Comparison is made to chest radiograph 07/14/2022 FINDINGS: A port catheter is seen. Calcified aortic knob is seen. The lungs are clear. No evidence of pleural e ffusion or pneumothorax. IMPRESSION: No acute abnormalities and in particular no evidence of pneumonia. ACT 112: Negative or not required by law. Electronically signed by: Richard Hayes M.D. 11/15/2022 5:18 PM
[2022-11-15] MEDS ORDERED: OPTIRAY 350 100ml IV ONE (17:54)
--- NOTE | 2022-11-15 18:06 | CT Scan Report ---
CT femur RT w con CLINICAL HISTORY: large deep proximal/lat leg ulceration, sepsis TECHNIQUE: Multidetector row helical CT of the right femur was performed without intravenous contrast . Coronal and sagittal reformations were obtained. Automated dose lowering techniques and/or adjustme nt according to patient size were utilized for this examination. CT DOSE: 407.45 mGy.cm Comparison: None available at the time of this dictation. FINDINGS: The osseous structures are without fracture or dislocation. The joint spaces are maintained. No joint effusion is seen. There is a large lateral ulcer at the level of the proximal femur. There is skin thickening and subcutaneous edema without evidence of drainable fluid collection. Bladder is under di stended. IMPRESSION: There is a large lateral ulcer without evidence of abscess or osteomyelitis. ACT 112: Negative or not required by law. Electronically signed by: Richard Hayes M.D. 11/15/2022 6:04 PM
--- NOTE | 2022-11-15 18:35 | History & Physical Report ---
Date of Service November 15, 2022 Assessment & Plan (1) Sepsis: Plan: Fever/chills, vomiting, symptoms generalized illness x several days. SIRS 3/4 (fever/HR/WBC). lactate/procal WNL. Chronic nonhealing wounds/ulcers without signs of cellulitis - unclear source of sepsis but suspect ulcers as source until proven otherwise. - s/p 1L NSS bolus in ED - continue with Normosol-R @125cc/hr - s/p Vancomycin/Zosyn in ED - continue with Zosyn monotherapy for now - PRN Zofran for nausea - follow blood/wound cultures - ordered MRSA - consider addition of Daptomycin if positive - consider TTE if blood cultures with gram-positive organism - trend CBC in AM (2) Cutaneous T-cell lymphoma: Plan: Chronic, diagnosed in 2019. Currently on Gemcitabine, Cisplatin and Decadron 4mg PO daily. Follows with [facility] (Dr. Buck Olmos). 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 - wound care nurse consulted for lower extremity open wounds/ulcerations - continue scheduled Morphine extended release and Doxepin as well as PRN Morphine/Oxycodone/Dilaudid pain regimen for chronic pain associated with ulcers (4) Hyponatremia: Plan: Na 130, from normal baseline several months ago. Suspect hypotonic hypovolemic hyponatremia 2/2 to vomiting and decreased PO intake. - ordered serum/urine osmolality and urinary sodium - continue IV hydration as stated above - trend in AM (5) Hypomagnesemia: Plan: Mg 1.3, suspect due to vomiting and sepsis. Repleted with Mg sulfate 4gm IV. - trend in AM (6) Hypertension: Plan: Normotensive thus far. - continue home Amlodipine, Lisinopril (7) Hyperlipidemia: Plan: Continue home statin (8) Acid reflux disease: Plan: Protonix per hospital formulary (9) Anemia: Plan: Hgb 10.2 today, baseline 11-12. Normocytic. Suspect due to chemotherapy. No signs active bleeding - trend (10) Gout: Plan: Continue home Allopurinol (11) BPH (benign prostatic hyperplasia): Plan: Continue home Flomax Plan FEN/GI: regular diet, Normosol-R @125cc/hr DVT Prophylaxis: Lovenox Code Status: full Disposition: med/tele, PT/OT ordered History of Present Illness Chief Complaint: right leg pain Primary Care Provider: MANNY Saucedo Wilfredo Ridley is a 72yo male with PMHx significant for cutaneous T-cell lymphoma (on gemcitabine, cisplatin and Decadron, with recent RTx), radiation necrosis of skin (right thigh, right and left leg), chronic nonhealing wound right upper extremity, open wound of right hip and right lower leg, HTN, HLD, GERD and anemia who presented to [facility] ED on 11/15 for worsening right upper posterior thigh pain due to open wound (11/02 to RTx/cancer), as well as fever/chills and nausea/vomiting x several days. Minimal PO intake. Feels "sick". Denies cough, runny nose, headache, dysuria, diarrhea, or other rashes. Patient has a 30 pack year smoking history, quit 20 years ago. Denies alcohol/drug use. Has been harder for patient to walk due to severe chronic nonhealing ulcers but he uses a cane/walker. Proficient in ADLs and some iADLs. Lives with at home who helps him. In the ED the patient was febrile to 38.5C, tachycardic to 108, normotensive and satting well on room air. Labs significant for WBC 2.51, lactate 1.0, procalcitonin 0.34, Hgb 10.2 (baseline 11-12), Na 130 (from 138 in 07/2022). Flu/RSV/COVID negative. CXR unremarkable. Femur CT with large lateral ulcer without evidence of abscess or osteomyelitis. Patient was given 1L NSS bolus and starting on Vanco/Zosyn. HR improved to 87 after 1L bolus. Blood cx collected before initiation of abx. Allergies Allergy/AdvReac Type Severity Reaction Status Date / Time No Known Allergies Allergy Verified 11/15/22 17:04 Home Medications Medication Instructions Recorded Confirmed Type docusate sodium 100 mg capsule 100 mg PO DAILY 04/24/19 11/15/22 History (Dulcolax Stool Softener (docusate)) omeprazole 20 mg capsule,delayed 20 mg PO DAILY #90 caps 05/25/20 11/15/22 Rx release doxepin 10 mg capsule 20 mg PO DAILY #60 caps 08/23/20 11/15/22 Rx triamcinolone acetonide 0.1 % 1 applic topical BID PRN Rash #1 g 10/21/20 11/15/22 History topical cream acetaminophen 500 mg tablet 1,000 mg PO Q6H PRN Fever Or Pain 11/08/20 11/15/22 History (Tylenol Extra Strength) lisinopril 10 mg tablet 10 mg PO DAILY #90 tabs 10/12/21 11/15/22 Rx amlodipine 10 mg tablet 10 mg PO DAILY #90 tabs 03/20/22 11/15/22 Rx ondansetron HCl 8 mg tablet 8 mg PO Q8H PRN Nausea 06/01/22 11/15/22 History oxycodone 5 mg capsule 5 mg PO Q8H PRN Pain 06/01/22 11/15/22 History prochlorperazine maleate 10 mg 10 mg PO Q6H PRN Nausea 06/01/22 11/15/22 History tablet (Compazine) vitamin C 500 mg-multivitamin with 1 tab PO DAILY 06/01/22 11/15/22 History minerals chewable tablet (Emergen-C) atorvastatin 20 mg tablet 20 mg PO DAILY #90 tabs 07/24/22 11/15/22 Rx pembrolizumab 25 mg/mL intravenous 0 mg IV .Q 3 weeks 07/24/22 11/15/22 History solution (Keytruda) clobetasol 0.05 % topical ointment 1 applic topical DAILY #30 grams 08/30/22 11/15/22 Rx collagenase clostridium histo. 250 1 applic topical DAILY #30 grams 10/11/22 11/15/22 Rx unit/gram topical ointment (Santyl) morphine 15 mg tablet,extended 15 mg PO Q12H 10/31/22 11/15/22 History release tamsulosin 0.4 mg capsule 0.4 mg PO HS 30 days #90 caps 11/01/22 11/15/22 Rx allopurinol 100 mg tablet 100 mg PO DAILY 11/15/22 11/15/22 History dexamethasone 4 mg tablet 4 mg PO DIRECTED 11/15/22 11/15/22 History hydromorphone 4 mg tablet 4 mg PO DIRECTED PRN Pain 11/15/22 11/15/22 History metronidazole 1 % topical gel 1 applic topical BID PRN NEEDED 11/15/22 11/15/22 History (Metrogel) morphine 30 mg tablet,extended 30 mg PO Q12H 11/15/22 11/15/22 History release Past Med/Surg History Medical History (Updated 11/15/22 @ 19:20 by Morris Betts MD) Acid reflux disease Arthritis BPH (benign prostatic hyperplasia) Cutaneous T-cell lymphoma Encounter for pre-operative examination External hemorrhoids Gout Hearing difficulty History of chemotherapy Brentuximab (01/03/2019 - 05/30/2019 x 8 cycles) Brentuximab (11/07/2021 - Present x 6 cycles thus far) Psoriasis Radiation necrosis of skin and subcutaneous UTI (urinary tract infection) Vestibular schwannoma Surgical History History of hemorrhoidectomy History of hernia repair Hx of lymph node biopsy S/P debridement 07/15/22 Dr. 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, stage IV, wound size about 10 x 10 cm; Debridement of wound on the left lower leg, stage IV, size about 3 x 4 cm Family History Mother Myocardial infarction Father Myocardial infarction Sister Cancer, Onset Age: 70 do not know what type Denies family history of Ovarian cancer Prostate cancer Breast cancer Colorectal cancer Social History Smoking Status: Never smoker Tobacco Type: Cigarettes Age Started Using Tobacco: 16; Age Quit Using Tobacco: 40; packs per day: 1.5; Cigarettes Per Day: 30; Second Hand Exposure: Yes; Hx Alcohol Use: No Hx Substance Use: No Preferred Language: Lao Communication Ability: Effective Visual Impairment: No Limitations Hearing Ability: Hard of Hearing Laminator Required: No Beliefs That Will Affect Care: None marital status: Current Living Situation: Spouse current occupational status: employed current occupation: [employer] How many Children do You have: 1 Feels Safe at Home: Yes Childhood Exposure to Second-Hand Smoke: Yes caffeine: Yes (pepsi 24 oz per day) during the past year weight has: remained stable Dental Care, Regularly: No Physical Activity Frequency: 1-2 Times per Week Physical Activity Frequency Comment: more active in the summer; 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 Mercer) Assistive Devices: None Review of Systems Review of Systems: All systems reviewed & are unremarkable except as noted in HPI & below Physical Exam Physical Exam: General: A&Ox3. NAD. Cooperative. HEENT: Atraumatic, normocephalic. Pulm: CTAB A&P. -wheezes, -rales, -rhonchi. Symmetrical chest rise. No increase work of breathing. No respiratory distress. Cardiac: RRR, -mrg. Radial pulses intact and symmetrical. No LE edema. Abdominal: soft, non-tender, non-distended, BS x 4 Lower Extremities: Grade III Right Lateral Thigh ulcer without active drainage, with appropriate granulation tissue and without surrounding erythema or red streaking. Another smaller Grade III ulcer on right lateral leg and ulcer on left lateral leg - both without surrounding erythema or red streaking Results & Data Results & Data ([facility]) Vital Signs (Past 12 Hours) Vital Signs Temp Pulse Pulse Resp BP BP Pulse Ox 11/15/22 17:26 84 11/15/22 18:00 87 16 120/65 96 11/15/22 17:30 85 16 123/67 94 11/15/22 17:00 84 14 139/64 92 11/15/22 17:12 96 11/15/22 15:51 38.5 C H 108 H 18 138/69 95 O2 Del Method 11/15/22 17:26 11/15/22 18:00 Room Air 11/15/22 17:30 Room Air 11/15/22 17:00 Room Air 11/15/22 17:12 Room Air 11/15/22 15:51 Room Air Supervising Physician Co-Signing Physician Notes Patient seen and examined, chart reviewed, case discussed with Hank Betts, PGY-3 and I agree with the assessment and plan as above except as otherwise noted Labs and images reviewed Wilfredo is a 72-year-old male with a history of cutaneous T-cell lymphoma, radiation necrosis of the skin, chronic nonhealing wound right upper extremity, open wound of the right hip and right lower leg, GERD, hypertension, hyperlipidemia who presents with concerns for sepsis 2/2 cellulitis. On ER evaluation patient is febrile. Procalcitonin is normal. COVID is negative. Seen at bedside. +intermittent chills in the last few weeks, but much worse last 24 hours. +RLL pain. No shortness of breath, cough, CP, chest pressure. Patient has had debridement 07/15/2022 of right thigh wound stage IV at that time. CT of the femur shows large lateral ulcer without evidence of abscess or osteomyelitis. Chest x-ray is without acute findings and shows no evidence of pneumonia. Lungs are clear, HR regular. R hip with chronic radiation necrosis, RLL with thickened patch at baseline per pt. Patient was started on Zosyn/vancomycin in the emergency department given complicated wound, history of debridement, and tachycardia up to [id number]. Following antibiotics and 1 L NSS heart rate normalized, patient remains normotensive but febrile. Agree with treatment for cellulitis. Past wound cultures are positive for Pseudomonas, E. coli, group B strep, MSSA. No hx on culture review of MRSA. Defer vancomycin at this time, continue Zosyn for pseudomonas coverage. Qt is not prolonged. Resident Activity Tracking Resident Involvement: Resident Care Provided Care Provided: Adult [facility] Medicine (2) Cutaneous T-cell lymphoma Lymphoma site: extranodal excluding spleen and other solid organs Qualified Code(s): C84.A9 - Cutaneous T-cell lymphoma, unspecified, extranodal and solid organ sites
[2022-11-15 19:04] LABS: Albumin Level 3.2 gm/dl (3.4-5.0); Bilirubin Direct 0.1 mg/dl (0-0.2); Bilirubin,Total 0.5 mg/dl (0.2-1.0); Magnesium 1.3 mg/dl (1.7-2.4)
[2022-11-15 19:10] LABS: Total Protein 6.4 gm/dl (6.0-8.3); Troponin I High Sensitivity 12.4 pg/ml (0-20)
[2022-11-15 19:16] LABS: INR 1.2 (0.9-1.1); Partial Thromboplastin Ratio 0.9; Partial Thromboplastin Time 26.1 Seconds (21.0-31.0); Prothrombin Time 12.8 Seconds (9.0-12.0)
[2022-11-15] MEDS ORDERED: MAGNESIUM SULFATE 1GM / D5W BAG IV ONE (19:36)
[2022-11-15] MEDS: MAGNESIUM SULFATE / D5W 1 GM/100 ML BAG IV SCH ×2 (19:38→22:21)
[2022-11-15 19:40] LABS: Appearance Urine Clear (Clear); Bilirubin Urine Negative (Negative); Blood Urine Negative (Negative); Color Urine Yellow; Glucose Urine UA Negative (Negative); Ketones Urine 1+ (Negative); Leukocyte Esterase Urine Negative (Negative); Nitrite Urine Negative (Negative); Protein Urine Negative (Negative); Specific Gravity Urine 1.022 (1.000-1.030); Urobilinogen Urine Negative (Negative); pH Urine 6.5 (4.5-7.5)
[2022-11-15] MEDS ORDERED: ACETAMINOPHEN 500 MG TAB PO PRN (21:56)
[2022-11-15] MEDS ORDERED: ONDANSETRON INJ 2 MG/ML 2 ML VIAL IV PRN (21:56)
[2022-11-15] MEDS ORDERED: MoRPHine SULFATE CR 15 MG TABCR PO SCH (21:56)
[2022-11-15] MEDS: NORMOSOL-R 1,000 ML IV SCH (22:30)
[2022-11-15] MEDS ORDERED: HYDROmorphone HCL 2 MG TAB PO PRN (22:40)
[2022-11-16] MEDS: ENOXAPARIN INJ 40 MG/0.4 ML SYR SQ SCH ×2 (00:01→21:35)
[2022-11-16] MEDS: MAGNESIUM SULFATE / D5W 1 GM/100 ML BAG IV SCH ×2 (00:01→01:18)
[2022-11-16] MEDS: MoRPHine SULFATE CR 15 MG TABCR PO SCH ×3 (00:01→21:35)
[2022-11-16] MEDS: TAMSULOSIN HCL 0.4 MG CAP PO SCH ×2 (00:01→21:35)
[2022-11-16] MEDS: dexAMETHasone 4 MG TAB PO SCH ×3 (00:01→21:35)
[2022-11-16] MEDS: PIPERACILLIN/TAZOBACTAM 4.5 GM in DEXTROSE 5% 100 ML IV SCH ×3 (01:00→17:25)
[2022-11-16] MEDS: NORMOSOL-R 1,000 ML IV SCH (05:44)
--- NOTE | 2022-11-16 08:20 | Hospitalist Progress Note ---
Date of Service November 16, 2022 Assessment & Plan (1) Sepsis: Plan: Acute illness with significant risk Fever/chills, vomiting, symptoms generalized illness x several days. SIRS 3/4 (fever/HR/WBC). lactate/procal WNL. Chronic nonhealing wounds/ulcers without signs of cellulitis - unclear source of sepsis but suspect ulcers as source until proven otherwise. also be aware of indwelling port -volume resusitated in ER - s/p Vancomycin/Zosyn in ED - continue with Zosyn monotherapy for now - ordered MRSA nares negative for MRSA (2) Cutaneous T-cell lymphoma: Plan: Chronic, stable. diagnosed in 2019. Currently on Gemcitabine, Cisplatin and Decadron 4mg PO daily. Follows with [facility] (Dr. Buck Olmos). 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 - wound care nurse consulted for lower extremity open wounds/ulcerations - continue scheduled Morphine extended release and Doxepin as well as PRN Morphine/Oxycodone/Dilaudid pain regimen for chronic pain associated with ulcers Ct of right femur does show ulcer, does not show osteomyelitis (4) Hyponatremia: Plan: Na 130, from normal baseline several months ago. Suspect hypotonic hypovolemic hyponatremia 2/2 to vomiting and decreased PO intake. - ordered serum/urine osmolality and urinary sodium - continue IV hydration as stated above - trend in AM (5) Hypomagnesemia: Plan: acute self limited Mg 1.3, suspect due to vomiting and sepsis. Repleted with Mg sulfate 4gm IV. - trend in AM (6) Hypertension: Plan: chronic stable continue home treatment Amlodipine, Lisinopril (7) Anemia: Plan: Hgb 10.2 today, baseline 11-12. Normocytic. suspect due to chemotherpay and chronic disease (8) Gout: Plan: Continue home Allopurinol (9) BPH (benign prostatic hyperplasia): Plan: Continue home Flomax Plan DVT Prophylaxis: Lovenox Code Status: full Admission and Anticipated Discharge Date Admission Date: November 15, 2022 Subjective Patient has significant wound on his right mid thigh. He was relayed the information that his CT scan did not show osteomyelitis. His pain was suboptimally controlled due to confusion medication reconciliation. This was amended and hopefully have since pain on better control with as needed breakthrough medications ordered both parenterally and orally Physical Exam Physical Exam: Patient awake and alert expresses discomfort of his leg and also displeasure with outpatient wound management. His wound was undressed by myself the area shows some discoloration consistent with previous radiation treatment. There is a 4 cm circular defect which is significantly deep probably at least a stage IV or more with packing in place. There is no initial obvious signs of infection but there was some slough that would need to be removed Results & Data Results & Data ([facility]) Vital Signs (Past 12 Hours) Vital Signs Temp Pulse Pulse Resp BP BP Pulse Ox 11/16/22 07:40 98.1 F 74 18 153/83 H 93 11/15/22 21:30 11/15/22 21:30 97.7 F 88 20 163/82 H 98 11/16/22 02:58 98.1 F 82 18 157/73 H 96 11/15/22 22:15 77 11/15/22 21:34 91 H 11/15/22 20:45 76 13 131/67 97 11/15/22 20:30 78 13 136/68 97 11/15/22 20:15 80 20 136/71 97 O2 Del Method 11/16/22 07:40 Room Air 11/15/22 21:30 Room Air 11/15/22 21:30 Room Air 11/16/22 02:58 Room Air 11/15/22 22:15 11/15/22 21:34 11/15/22 20:45 11/15/22 20:30 11/15/22 20:15 Laboratory Results Reviewed CBC Reviewed chemistry panel PG Care Time/CCT Total # of Minutes Spent Total Time Spent with Patient: Total time spent is greater than 50% in coordination of care (as documented) at patient's floor/unit and/or counseling patient: Coding Level of Care Code 19676 SUB INP/OBS CARE 50MIN Diagnoses Sepsis A41.9 Cutaneous T-cell lymphoma C84.A9 Lymphoma site: extranodal excluding spleen and other solid organs Radiation necrosis of skin and subcutaneous L59.8; Y84.2 Hyponatremia E87.1 Hypomagnesemia E83.42 Hypertension I10 Anemia D64.9 Gout M10.9 BPH (benign prostatic hyperplasia) N40.0 (2) Cutaneous T-cell lymphoma Lymphoma site: extranodal excluding spleen and other solid organs Qualified Code(s): C84.A9 - Cutaneous T-cell lymphoma, unspecified, extranodal and solid organ sites
[2022-11-16] MEDS: DOXEPIN HCL 10 MG CAPSULE PO SCH (08:34)
[2022-11-16] MEDS: allopurinoL 100 MG TAB PO SCH (08:34)
[2022-11-16] MEDS: amLODIPine BESYLATE 5 MG TAB PO SCH (08:34)
[2022-11-16] MEDS: PANTOprazole 40 MG TAB PO SCH (08:34)
[2022-11-16] MEDS: ATORVASTATIN 20 MG TAB PO SCH (08:34)
[2022-11-16] MEDS: DOCUSATE SODIUM 100 MG CAP PO SCH (08:34)
[2022-11-16] MEDS: lisinopril 10 MG TAB PO SCH (08:35)
[2022-11-16] MEDS ORDERED: COLLAGENASE OINT 30 GM TUBE EXT SCH (09:00)
--- NOTE | 2022-11-16 10:06 | Electrocardiogram Report ---
Test Reason : Blood Pressure : / mmHG Vent. Rate : 075 BPM Atrial Rate : 075 BPM P-R Int : 164 ms QRS Dur : 088 ms QT Int : 378 ms P-R-T Axes : 044 027 040 degrees QTc Int : 422 ms Normal sinus rhythm Normal ECG When compared with ECG of 15-NOV-2022 16:59, (unconfirmed) No significant change was found Confirmed by Jose R Haines ([id number]) on 11/16/2022 10:06:33 AM Referred By: REFERRED SELF Confirmed By:Fadi Haines
--- NOTE | 2022-11-16 10:11 | Electrocardiogram Report ---
Test Reason : Blood Pressure : / mmHG Vent. Rate : 095 BPM Atrial Rate : 095 BPM P-R Int : 150 ms QRS Dur : 090 ms QT Int : 354 ms P-R-T Axes : 030 008 014 degrees QTc Int : 444 ms Poor data quality, interpretation may be adversely affected Normal sinus rhythm Normal ECG When compared with ECG of 17-JUL-2022 15:57, No significant change was found Confirmed by Jose R Haines ([id number]) on 11/16/2022 10:10:58 AM Referred By: REFERRED SELF Confirmed By:Fadi Haines
[2022-11-16 10:22] LABS: Hematocrit (blood only) 24.9 % (42.0-52.0); Hemoglobin 8.6 g/dl (14.0-18.0); Mean Corpuscular Hemoglobin 27.8 pg (25.0-34.0); Mean Corpuscular Hgb Conc 34.5 g/dL (32.0-36.0); Mean Corpuscular Volume 80.6 fL (80.0-100.0); Mean Platelet Volume 9.1 fL (9.4-12.4); Platelet Count 119 K/uL (130-400); RDW Coefficient of Variation 16.1 % (11.5-14.5); RDW Standard Deviation 47.2 fL (36.4-46.3); Red Blood Count 3.09 M/uL (4.70-6.10); White Blood Count 3.09 K/ul (4.8-10.8)
[2022-11-16 10:37] LABS: Dohle Bodies 2+; Echinocytes 1+; Immature Granulocytes # (auto) 0.04 K/uL (0.01-0.20); Immature Granulocytes % (auto) 1.3 %; Lymphocytes # (auto) 0.43 K/uL (1.2-3.4); Lymphocytes % (auto) 13.9 %; Monocytes # (auto) 0.21 K/uL (0.11-0.59); Monocytes % (auto) 6.8 %; Neutrophils # (auto) 2.41 K/uL (1.40-6.50)
[2022-11-16 10:57] LABS: BUN Creatinine Ratio 14.6 (10-20); Calcium 7.7 mg/dl (8.5-10.1); Creatinine Clr Calc Pharmacy 77.7 ml/min; Est GFR (African American) 102.4 ml/min; Est GFR (Non-African American) 88.3 ml/min; Magnesium 1.9 mg/dl (1.7-2.4); Potassium 3.7 mmol/L (3.5-5.1)
[2022-11-16] MEDS ORDERED: METOPROLOL TARTRATE 1 MG/ML VIAL IV PRN (11:24)
[2022-11-16] MEDS ORDERED: HYDROmorphone INJ 0.5 MG/0.5 ML SYR IV PRN (11:24)
[2022-11-16] MEDS ORDERED: MoRPHine SULFATE CR 15 MG TABCR PO ONE (11:30)
[2022-11-16] MEDS ORDERED: Nursing to Pharmacy Communication SCH (13:15)
[2022-11-16] MEDS: COLLAGENASE OINT 30 GM TUBE EXT SCH (17:25)
[2022-11-17] MEDS: PIPERACILLIN/TAZOBACTAM 4.5 GM in DEXTROSE 5% 100 ML IV SCH ×3 (00:20→17:16)
[2022-11-17] MEDS: dexAMETHasone 4 MG TAB PO SCH ×2 (08:49→21:16)
[2022-11-17] MEDS: PANTOprazole 40 MG TAB PO SCH (08:50)
[2022-11-17] MEDS: amLODIPine BESYLATE 5 MG TAB PO SCH (08:50)
[2022-11-17] MEDS: allopurinoL 100 MG TAB PO SCH (08:50)
[2022-11-17] MEDS: MoRPHine SULFATE CR 60 MG TABCR PO SCH (08:50)
[2022-11-17] MEDS: DOXEPIN HCL 10 MG CAPSULE PO SCH (08:50)
[2022-11-17] MEDS: lisinopril 10 MG TAB PO SCH (08:51)
[2022-11-17] MEDS: DOCUSATE SODIUM 100 MG CAP PO SCH (08:51)
[2022-11-17] MEDS: ATORVASTATIN 20 MG TAB PO SCH (08:51)
--- NOTE | 2022-11-17 08:52 | Hospitalist Progress Note ---
Date of Service November 17, 2022 Assessment & Plan (1) Sepsis: Plan: Acute illness with significant risk , wound cultured shows pseudomonas and E coli, sensitive to Zosyn, ( may change to meropenem if home antibiotics considered) SIRS 3/4 (fever/HR/WBC). lactate/procal WNL. Chronic nonhealing wounds/ulcers considered as source, blood cultures remain negative -volume resuscitated in ER - s/p Vancomycin/Zosyn in ED - continue with Zosyn monotherapy for now - ordered MRSA nares negative for MRSA (2) Cutaneous T-cell lymphoma: Plan: Chronic, stable. diagnosed in 2019. Currently on Gemcitabine, Cisplatin and Decadron 4mg PO daily. Follows with [facility] (Dr. Buck Olmos). 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 - wound care nurse consulted for lower extremity open wounds/ulcerations - continue scheduled Morphine extended release and Doxepin as well as PRN Morphine/Oxycodone/Dilaudid pain regimen for chronic pain associated with ulcers Ct of right femur does show ulcer, does not show osteomyelitis will need set up for wound care at [facility] (4) Hyponatremia: Plan: chronic and stable (5) Hypomagnesemia: Plan: acute self limited replete (6) Hypertension: Plan: chronic stable continue home treatment Amlodipine, Lisinopril (7) Anemia: Plan: anemia is multifactoral, acute and chronic follow (8) Gout: Plan: Continue home Allopurinol (9) BPH (benign prostatic hyperplasia): Plan: Continue home Flomax Plan DVT Prophylaxis: Lovenox Code Status: full Admission and Anticipated Discharge Date Admission Date: November 15, 2022 Subjective Patient has significant wound on his right mid thigh. His pain remains suboptimally controlled even after amendment of his home med reconciliation to return to MS Contin 60 morning 30 at night with breakthrough Dilaudid 4 mg as needed. Subsequently we will add scheduled Tylenol 1 dose of Toradol I did discuss to the patient that he has Pseudomonas and E. coli in his wound. We are attempting to try to determine a home antibiotic regimen however most medications that the bacteria are sensitive to are multiple doses per day we will see what is the best agent to use at home whether meropenem or Zosyn likely the patient should complete a 2-week treatment course Physical Exam Physical Exam: Patient is awake and looks improved he still has significant pain worsened with ambulation he is able to ambulate about his room with a supportive device his cardiac exam is regular and his lungs are clear Results & Data Results & Data ([facility]) Vital Signs (Past 12 Hours) Vital Signs Temp Pulse Pulse Resp BP Pulse Ox O2 Del Method 11/17/22 07:46 97.3 F L 61 18 123/74 97 Room Air 11/17/22 03:00 97.7 F 64 20 117/70 96 Room Air 11/16/22 22:03 62 11/16/22 22:00 97.9 F 68 20 103/61 96 Room Air Laboratory Results Reviewed CBC Reviewed chemistry Reviewed microbiology results of cultures and sensitivities of bacteria PG Care Time/CCT Total # of Minutes Spent Total Time Spent with Patient: Total time spent is greater than 50% in coordination of care (as documented) at patient's floor/unit and/or counseling patient: Coding Level of Care Code 22682 SUB INP/OBS CARE 3/50MIN Diagnoses Sepsis A41.9 Sepsis acute organ dysfunction status: without acute organ dysfunction Sepsis type: sepsis due to unspecified organism Cutaneous T-cell lymphoma C84.A0 Lymphoma site: unspecified region Radiation necrosis of skin and subcutaneous L59.8; Y84.2 Hyponatremia E87.1 Hypomagnesemia E83.42 Hypertension I10 Anemia D64.9 Gout M10.9 BPH (benign prostatic hyperplasia) N40.0 (1) Sepsis Sepsis acute organ dysfunction status: without acute organ dysfunction Sepsis type: sepsis due to unspecified organism Qualified Code(s): A41.9 - Sepsis, unspecified organism (2) Cutaneous T-cell lymphoma Lymphoma site: unspecified region Qualified Code(s): C84.A0 - Cutaneous T- cell lymphoma, unspecified, unspecified site
[2022-11-17 10:19] LABS: Hematocrit (blood only) 27.1 % (42.0-52.0); Hemoglobin 9.1 g/dl (14.0-18.0); Mean Corpuscular Hemoglobin 27.7 pg (25.0-34.0); Mean Corpuscular Hgb Conc 33.6 g/dL (32.0-36.0); Mean Corpuscular Volume 82.4 fL (80.0-100.0); Mean Platelet Volume 9.5 fL (9.4-12.4); Platelet Count 94 K/uL (130-400); RDW Coefficient of Variation 16.1 % (11.5-14.5); RDW Standard Deviation 49.1 fL (36.4-46.3); Red Blood Count 3.29 M/uL (4.70-6.10); White Blood Count 4.97 K/ul (4.8-10.8)
[2022-11-17 10:32] LABS: BUN Creatinine Ratio 17.4 (10-20); Calcium 8.1 mg/dl (8.5-10.1); Creatinine Clr Calc Pharmacy 69.7 ml/min; Est GFR (Non-African American) 82.8 ml/min; Potassium 3.9 mmol/L (3.5-5.1)
[2022-11-17 10:39] LABS: Basophils # (auto) 0.01 K/uL (0-0.2); Basophils % (auto) 0.2 %; Immature Granulocytes # (auto) 0.02 K/uL (0.01-0.20); Immature Granulocytes % (auto) 0.4 %; Lymphocytes # (auto) 0.65 K/uL (1.2-3.4); Lymphocytes % (auto) 13.1 %; Monocytes # (auto) 0.19 K/uL (0.11-0.59); Monocytes % (auto) 3.8 %; Neutrophils % (auto) 82.5 %; Platelet Estimate Decreased (Normal)
[2022-11-17] MEDS: COLLAGENASE OINT 30 GM TUBE EXT SCH (15:03)
[2022-11-17] MEDS ORDERED: KETOROLAC TROMETHAMINE 15 MG/ML VIAL IV ONE (16:15)
[2022-11-17] MEDS: ACETAMINOPHEN 500 MG TAB PO SCH (17:16)
[2022-11-17] MEDS: ENOXAPARIN INJ 40 MG/0.4 ML SYR SQ SCH (21:16)
[2022-11-17] MEDS: TAMSULOSIN HCL 0.4 MG CAP PO SCH (21:17)
[2022-11-17] MEDS: MoRPHine SULFATE CR 15 MG TABCR PO SCH (21:19)
[2022-11-18] MEDS: PIPERACILLIN/TAZOBACTAM 4.5 GM in DEXTROSE 5% 100 ML IV SCH (00:23)
[2022-11-18] MEDS: ACETAMINOPHEN 500 MG TAB PO SCH ×4 (00:23→23:22)
[2022-11-18 06:22] LABS: Calcium 8.5 mg/dl (8.5-10.1); Creatinine Clr Calc Pharmacy 55.3 ml/min; Est GFR (African American) 72.5 ml/min; Est GFR (Non-African American) 62.6 ml/min
[2022-11-18 06:47] LABS: Hematocrit (blood only) 27.2 % (42.0-52.0); Hemoglobin 9.1 g/dl (14.0-18.0); Mean Corpuscular Hemoglobin 27.9 pg (25.0-34.0); Mean Corpuscular Hgb Conc 33.5 g/dL (32.0-36.0); Mean Corpuscular Volume 83.4 fL (80.0-100.0); Mean Platelet Volume 9.2 fL (9.4-12.4); Platelet Count 78 K/uL (130-400); Platelet Estimate Decreased (Normal); RDW Coefficient of Variation 16.3 % (11.5-14.5); RDW Standard Deviation 49.9 fL (36.4-46.3); Red Blood Count 3.26 M/uL (4.70-6.10); White Blood Count 6.11 K/ul (4.8-10.8)
[2022-11-18] MEDS: allopurinoL 100 MG TAB PO SCH (09:50)
[2022-11-18] MEDS: DOCUSATE SODIUM 100 MG CAP PO SCH (09:51)
[2022-11-18] MEDS: amLODIPine BESYLATE 5 MG TAB PO SCH (09:51)
[2022-11-18] MEDS: ATORVASTATIN 20 MG TAB PO SCH (09:51)
[2022-11-18] MEDS: dexAMETHasone 4 MG TAB PO SCH ×2 (09:51→20:29)
[2022-11-18] MEDS: DOXEPIN HCL 10 MG CAPSULE PO SCH (09:56)
[2022-11-18] MEDS: MoRPHine SULFATE CR 60 MG TABCR PO SCH ×2 (09:57→20:29)
[2022-11-18] MEDS: PANTOprazole 40 MG TAB PO SCH (09:57)
[2022-11-18] MEDS: lisinopril 10 MG TAB PO SCH (09:57)
[2022-11-18] MEDS ORDERED: POLYETHYLENE (MIRALAX) 17 GM PACK PO PRN (10:47)
--- NOTE | 2022-11-18 12:53 | Hospitalist Progress Note ---
Date of Service November 18, 2022 Assessment & Plan (1) Sepsis: Plan: Acute illness with significant risk , wound cultured shows pseudomonas and E coli, sensitive to Zosyn, ( may change to meropenem if home antibiotics considered) SIRS 3/4 (fever/HR/WBC). lactate/procal WNL. Chronic nonhealing wounds/ulcers considered as source, blood cultures remain negative -volume resuscitated in ER - s/p Vancomycin/Zosyn in ED - continue with Zosyn monotherapy for now, CM to help explore which is best at home option will have out pt follow up at wound care - ordered MRSA nares negative for MRSA (2) Cutaneous T-cell lymphoma: Plan: Chronic, stable. diagnosed in 2019. Currently on Gemcitabine, Cisplatin and Decadron 4mg PO daily. Follows with [facility] (Dr. Buck Olmos). 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 - wound care nurse consulted for lower extremity open wounds/ulcerations - continue scheduled Morphine extended release and Doxepin as well as PRN Morphine/Oxycodone/Dilaudid pain regimen for chronic pain associated with ulcers Ct of right femur does show ulcer, does not show osteomyelitis will need set up for wound care at [facility] (4) Hyponatremia: Plan: chronic and stable (5) Hypomagnesemia: Plan: acute self limited replete (6) Hypertension: Plan: chronic stable continue home treatment Amlodipine, Lisinopril (7) Anemia: Plan: anemia is multifactoral, acute and chronic follow (8) Gout: Plan: Continue home Allopurinol (9) BPH (benign prostatic hyperplasia): Plan: Continue home Flomax Plan DVT Prophylaxis: Lovenox Code Status: full Admission and Anticipated Discharge Date Admission Date: November 15, 2022 Subjective Patient has significant wound on his right mid thigh. His pain remains suboptimally controlled even after amendment of his home med reconciliation agreeable to increase MS Contin 60 bid, scheduled tylenol and with breakthrough Dilaudid 4 mg as needed. will try nasal Miacalcin to help with bone pain I did discuss to the patient that he has Pseudomonas and E. coli in his wound. We are attempting to try to determine a home antibiotic regimen however most medications that the bacteria are sensitive to are multiple doses per day we will see what is the best agent to use at home whether meropenem or Zosyn likely the patient should complete a 2-week treatment course Physical Exam Physical Exam: Patient is awake and looks improved he still has significant pain worsened with ambulation he is able to ambulate about his room with a supportive device his cardiac exam is regular and his lungs are clear Results & Data Results & Data ([facility]) Vital Signs (Past 12 Hours) Vital Signs Temp Pulse Pulse Resp BP Pulse Ox O2 Del Method 11/18/22 11:26 97.2 F L 77 21 107/63 98 Room Air 11/18/22 11:26 53 L 11/18/22 07:19 97.7 F 66 16 150/78 H 97 Room Air 11/18/22 03:20 98.4 F 59 L 19 130/72 96 Room Air Laboratory Results reviewed cbc reviewed prp PG Care Time/CCT Total # of Minutes Spent Total Time Spent with Patient: Total time spent is greater than 50% in coordination of care (as documented) at patient's floor/unit and/or counseling patient: Coding Level of Care Code 63903 SUB INP/OBS CARE 2/35MIN Diagnoses Sepsis A41.9 Sepsis acute organ dysfunction status: without acute organ dysfunction Sepsis type: sepsis due to unspecified organism Cutaneous T-cell lymphoma C84.A0 Lymphoma site: unspecified region Radiation necrosis of skin and subcutaneous L59.8; Y84.2 Hyponatremia E87.1 Hypomagnesemia E83.42 Hypertension I10 Anemia D64.9 Gout M10.9 BPH (benign prostatic hyperplasia) N40.0 (1) Sepsis Sepsis acute organ dysfunction status: without acute organ dysfunction Sepsis type: sepsis due to unspecified organism Qualified Code(s): A41.9 - Sepsis, unspecified organism (2) Cutaneous T-cell lymphoma Lymphoma site: unspecified region Qualified Code(s): C84.A0 - Cutaneous T- cell lymphoma, unspecified, unspecified site
[2022-11-18] MEDS: CALCITONIN SALMON NA 200 IU/AC 3.7 ML BTL SCH (13:45)
[2022-11-18] MEDS: COLLAGENASE OINT 30 GM TUBE EXT SCH (18:13)
[2022-11-18] MEDS: ENOXAPARIN INJ 40 MG/0.4 ML SYR SQ SCH (20:29)
[2022-11-18] MEDS: TAMSULOSIN HCL 0.4 MG CAP PO SCH (20:30)
--- NOTE | 2022-11-19 07:18 | Hospitalist Progress Note ---
Date of Service November 19, 2022 Assessment & Plan (1) Sepsis: Plan: Acute illness with significant risk , wound cultured shows pseudomonas and E coli, sensitive to Zosyn, ( may change to meropenem if home antibiotics considered) SIRS 3/4 (fever/HR/WBC). lactate/procal WNL. Chronic nonhealing wounds/ulcers considered as source, blood cultures remain negative -volume resuscitated in ER - s/p Vancomycin/Zosyn in ED - continue with Zosyn monotherapy for now, CM to help explore continued home will have out pt follow up at wound care - ordered MRSA nares negative for MRSA (2) Cutaneous T-cell lymphoma: Plan: Chronic, stable. diagnosed in 2019. Currently on Gemcitabine, Cisplatin and Decadron 4mg PO daily. Follows with [facility] (Dr. Buck Olmos). 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 - wound care nurse consulted for lower extremity open wounds/ulcerations - continue scheduled Morphine extended release and Doxepin as well as PRN Morphine/Oxycodone/Dilaudid pain regimen for chronic pain associated with ulcers Ct of right femur does show ulcer, does not show osteomyelitis will need set up for wound care at [facility] (4) Hyponatremia: Plan: chronic and stable (5) Hypomagnesemia: Plan: acute self limited replete (6) Hypertension: Plan: chronic stable continue home treatment Amlodipine, Lisinopril (7) Anemia: Plan: anemia is multifactoral, acute and chronic follow (8) Gout: Plan: Continue home Allopurinol (9) BPH (benign prostatic hyperplasia): Plan: Continue home Flomax Plan DVT Prophylaxis: Lovenox Code Status: full Admission and Anticipated Discharge Date Admission Date: November 15, 2022 Subjective Patient has significant wound on his right mid thigh. His pain remains suboptimally controlled even after amendment of his home med reconciliation agreeable to increase MS Contin 60 bid, scheduled tylenol and with breakthrough Dilaudid 4 mg as needed. Current pain management admit regiment has increased proved his wound and bone pain patient that he has Pseudomonas and E. coli in his wound. Case management has arranged a home infusion company to continue Zosyn l parenterally to complete a 2-week treatment course Physical Exam Physical Exam: Patient is awake and looks improved has now said is the pain has been improved over the last 2 days is difficult to tell whether treatment of the infection or the Miacalcin this will be continued. Card exam regular lungs are clear Results & Data Results & Data ([facility]) Vital Signs (Past 12 Hours) Vital Signs Temp Pulse Pulse Resp BP Pulse Ox O2 Del Method 11/19/22 04:00 97.7 F 65 18 139/78 97 Room Air 11/18/22 23:46 98.1 F 69 18 125/75 97 Room Air 11/18/22 19:58 98.2 F 64 18 122/69 95 Room Air 11/18/22 19:37 60 Laboratory Results Reviewed PRP PG Care Time/CCT Total # of Minutes Spent Total Time Spent with Patient: Total time spent is greater than 50% in coordination of care (as documented) at patient's floor/unit and/or counseling patient: Coding Level of Care Code 85941 SUB INP/OBS CARE 2/35MIN Diagnoses Sepsis A41.9 Sepsis acute organ dysfunction status: without acute organ dysfunction Sepsis type: sepsis due to unspecified organism Cutaneous T-cell lymphoma C84.A0 Lymphoma site: unspecified region Radiation necrosis of skin and subcutaneous L59.8; Y84.2 Hyponatremia E87.1 Hypomagnesemia E83.42 Hypertension I10 Anemia D64.9 Gout M10.9 BPH (benign prostatic hyperplasia) N40.0 (1) Sepsis Sepsis acute organ dysfunction status: without acute organ dysfunction Sepsis type: sepsis due to unspecified organism Qualified Code(s): A41.9 - Sepsis, unspecified organism (2) Cutaneous T-cell lymphoma Lymphoma site: unspecified region Qualified Code(s): C84.A0 - Cutaneous T- cell lymphoma, unspecified, unspecified site
[2022-11-19 08:04] LABS: Calcium 9.2 mg/dl (8.5-10.1); Est GFR (Non-African American) 89.7 ml/min; Potassium 4.6 mmol/L (3.5-5.1)
[2022-11-19] MEDS: allopurinoL 100 MG TAB PO SCH (08:57)
[2022-11-19] MEDS: ACETAMINOPHEN 500 MG TAB PO SCH ×2 (08:57→18:05)
[2022-11-19] MEDS: amLODIPine BESYLATE 5 MG TAB PO SCH (08:57)
[2022-11-19] MEDS: lisinopril 10 MG TAB PO SCH (08:58)
[2022-11-19] MEDS: CALCITONIN SALMON NA 200 IU/AC 3.7 ML BTL SCH (08:58)
[2022-11-19] MEDS: PANTOprazole 40 MG TAB PO SCH (08:58)
[2022-11-19] MEDS: dexAMETHasone 4 MG TAB PO SCH ×2 (08:58→20:47)
[2022-11-19] MEDS: DOCUSATE SODIUM 100 MG CAP PO SCH (08:58)
[2022-11-19] MEDS: MoRPHine SULFATE CR 60 MG TABCR PO SCH ×2 (08:58→21:15)
[2022-11-19] MEDS: DOXEPIN HCL 10 MG CAPSULE PO SCH (08:58)
[2022-11-19] MEDS: ATORVASTATIN 20 MG TAB PO SCH (08:58)
[2022-11-19] MEDS: PIPERACILLIN/TAZOBACTAM 3.375 GM in DEXTROSE 5% 100 ML IV SCH ×2 (14:08→20:48)
[2022-11-19] MEDS: COLLAGENASE OINT 30 GM TUBE EXT SCH (14:09)
[2022-11-19] MEDS: ENOXAPARIN INJ 40 MG/0.4 ML SYR SQ SCH (20:48)
[2022-11-19] MEDS: TAMSULOSIN HCL 0.4 MG CAP PO SCH (20:48)
[2022-11-20] MEDS: ACETAMINOPHEN 500 MG TAB PO SCH ×3 (00:30→16:29)
[2022-11-20] MEDS: PIPERACILLIN/TAZOBACTAM 3.375 GM in DEXTROSE 5% 100 ML IV SCH ×3 (06:22→21:39)
[2022-11-20] MEDS: allopurinoL 100 MG TAB PO SCH (07:39)
[2022-11-20] MEDS: CALCITONIN SALMON NA 200 IU/AC 3.7 ML BTL SCH (07:40)
[2022-11-20] MEDS: amLODIPine BESYLATE 5 MG TAB PO SCH (07:40)
[2022-11-20] MEDS: ATORVASTATIN 20 MG TAB PO SCH (07:40)
[2022-11-20] MEDS: dexAMETHasone 4 MG TAB PO SCH ×2 (07:40→21:40)
[2022-11-20] MEDS: DOCUSATE SODIUM 100 MG CAP PO SCH (07:41)
[2022-11-20] MEDS: PANTOprazole 40 MG TAB PO SCH (07:41)
[2022-11-20] MEDS: lisinopril 10 MG TAB PO SCH (07:41)
[2022-11-20] MEDS: DOXEPIN HCL 10 MG CAPSULE PO SCH (07:41)
[2022-11-20] MEDS: MoRPHine SULFATE CR 60 MG TABCR PO SCH ×2 (07:49→21:39)
[2022-11-20 07:59] LABS: Calcium 9.3 mg/dl (8.5-10.1); Creatinine Clr Calc Pharmacy 70.6 ml/min; Est GFR (African American) 98.5 ml/min; Potassium 4.9 mmol/L (3.5-5.1)
[2022-11-20] MEDS: COLLAGENASE OINT 30 GM TUBE EXT SCH (16:23)
[2022-11-20] MEDS: TAMSULOSIN HCL 0.4 MG CAP PO SCH (21:40)
[2022-11-20] MEDS: ENOXAPARIN INJ 40 MG/0.4 ML SYR SQ SCH (21:41)
[2022-11-21] MEDS: ACETAMINOPHEN 500 MG TAB PO SCH ×2 (00:02→08:45)
[2022-11-21] MEDS: PIPERACILLIN/TAZOBACTAM 3.375 GM in DEXTROSE 5% 100 ML IV SCH (05:30)
[2022-11-21 08:02] LABS: Creatinine Clr Calc Pharmacy 65.2 ml/min; Est GFR (Non-African American) 77.7 ml/min
[2022-11-21] MEDS: DOXEPIN HCL 10 MG CAPSULE PO SCH (08:48)
[2022-11-21] MEDS: CALCITONIN SALMON NA 200 IU/AC 3.7 ML BTL SCH (08:48)
[2022-11-21] MEDS: lisinopril 10 MG TAB PO SCH (08:48)
[2022-11-21] MEDS: allopurinoL 100 MG TAB PO SCH (08:48)
[2022-11-21] MEDS: amLODIPine BESYLATE 5 MG TAB PO SCH (08:48)
[2022-11-21] MEDS: dexAMETHasone 4 MG TAB PO SCH (08:48)
[2022-11-21] MEDS: ATORVASTATIN 20 MG TAB PO SCH (08:48)
[2022-11-21] MEDS: DOCUSATE SODIUM 100 MG CAP PO SCH (08:48)
[2022-11-21] MEDS: PANTOprazole 40 MG TAB PO SCH (08:49)
[2022-11-21] MEDS: MoRPHine SULFATE CR 60 MG TABCR PO SCH (08:49)
[2022-11-21 14:03] VITALS: BP 133/71; TEMP 98.2
[2022-11-21 14:16] VITALS: O2SAT 98
--- NOTE | 2022-11-21 14:52 | Discharge Summary ---
Date of Service November 21, 2022 Admission HPI Per Admitting Provider Wilfredo Ridley is a 72yo male with PMHx significant for cutaneous T-cell lymphoma (on gemcitabine, cisplatin and Decadron, with recent RTx), radiation necrosis of skin (right thigh, right and left leg), chronic nonhealing wound right upper extremity, open wound of right hip and right lower leg, HTN, HLD, GERD and anemia who presented to [facility] ED on 11/15 for worsening right upper posterior thigh pain due to open wound (11/02 to RTx/cancer), as well as fever/chills and nausea/vomiting x several days. Minimal PO intake. Feels "sick". Denies cough, runny nose, headache, dysuria, diarrhea, or other rashes. Patient has a 30 pack year smoking history, quit 20 years ago. Denies alcohol/drug use. Has been harder for patient to walk due to severe chronic nonhealing ulcers but he uses a cane/walker. Proficient in ADLs and some iADLs. Lives with at home who helps him. In the ED the patient was febrile to 38.5C, tachycardic to 108, normotensive and satting well on room air. Labs significant for WBC 2.51, lactate 1.0, procalcitonin 0.34, Hgb 10.2 (baseline 11-12), Na 130 (from 138 in 07/2022). Flu/RSV/COVID negative. CXR unremarkable. Femur CT with large lateral ulcer without evidence of abscess or osteomyelitis. Patient was given 1L NSS bolus and starting on Vanco/Zosyn. HR improved to 87 after 1L bolus. Blood cx collected before initiation of abx. Principal Diagnosis Pseudomonas and E. coli right lateral thigh wound infection Decubitus ulcer present on admission likely stage IV from previous radiation therapy to cutaneous T-cell lymphoma at the site Osteomyelitis is ruled out Oncological pain requiring modulation of medications for better pain control Discharge Exam Patient's pain is improved with treatment of his infection and escalation of long-acting pain control medications. He is awake and appropriate. His wound outside of the packing looks to be less indurated and erythematous. There is a large amount of packing in place Discharge Data Allergies Allergy/AdvReac Type Severity Reaction Status Date / Time No Known Allergies Allergy Verified 11/15/22 17:04 Consultations 11/15/22 18:26 ED Decision to Admit Stat Ordered Studies 11/15/22 16:38 CT femur RT w con Stat Hospital Course (1) Sepsis: Acute illness with significant risk , wound cultured shows pseudomonas and E coli, sensitive to Zosyn, ( may change to meropenem if home antibiotics considered) SIRS 3/4 (fever/HR/WBC). lactate/procal WNL. Chronic nonhealing wounds/ulcers considered as source, blood cultures remain negative -volume resuscitated in ER - s/p Vancomycin/Zosyn in ED - continue with Zosyn monotherapy we will continue at home to complete a 2-week total course. Patient will be enrolled with [facility] wound center by his request Patient will continue local wound care as he is done at home prior to seeing [facility] [place] - ordered MRSA nares negative for MRSA (2) Cutaneous T-cell lymphoma: Chronic, stable. diagnosed in 2019. Currently on Gemcitabine, Cisplatin and Decadron 4mg PO daily. Follows with [facility] (Dr. Buck Olmos). 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, increased Decadron to 4mg PO BID (stress dosing) given sepsis -we will return to prehospital dexamethasone that is associated with his oncological treatment Patient has pancytopenia secondary to chemotherapeutic administration patient did not require any blood product support during his hospital stay Pain control at infectious site still suboptimal after resumed with his home MS Contin at 60 bid, scheduled tylenol, miacalcin, and with as needed breakthrough oral Dilaudid for which she takes at home and IV Dilaudid starting with constipation added miralax 11/18 patient will continue to modulate his bowel movements at home (3) Radiation necrosis of skin and subcutaneous: chronic, unstable moderate risk Right and left lower 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 - wound care nurse consulted for lower extremity open wounds/ulcerations - continue scheduled Morphine extended release and Doxepin Ct of right femur does show ulcer, does not show osteomyelitis will need set up for wound care at [facility] (4) Hyponatremia: chronic and stable (5) Hypomagnesemia: acute self limited replete (6) Hypertension: chronic stable continue home treatment Amlodipine, Lisinopril (7) Anemia: anemia is multifactoral, acute and chronic follow (8) Gout: Continue home Allopurinol (9) BPH (benign prostatic hyperplasia): Continue home Flomax Plan DVT Prophylaxis: Lovenox Code Status: full Total Time Total Time Spent Total Time Spent (In Minutes): It required greater than 30 minutes to prepare this patient for discharge Discharge Plan Discharge Items Patient Disposition: Home - Home Health Services Reason For Visit: R SIDE FROM HIP DOWN PAIN Discharge Diagnosis: infected right hip wound decubitus ulcer present on admission Activity: Resume your previous activity Non-emergency contact: Primary Care Provider and Specialist Call non-emergency contact if: your symptoms worsen Follow-up/Referrals: Dr. Jose R Hurtado [Other] - 11/30/22 10:00 am Medical Treatment Unit ([facility]U) [Outside] - 11/27/22 11:00 am (Please arrive to MTU at 10:45 AM. They will draw labs and change your IV dressing at this time appointment. If you are going to be later or need to change your appointment, please call [phone].) Maia Moore CRNP [Primary Care Provider] - 11/24/22 10:30 am (Please arrive 15 minutes prior to appointment time) Diet: Regular Addtl Attending Provider Instructions: please continue to see wound care take your pain medicines as prescribed, use laxatives to help if you are constipated follow up with your oncologist to notify that you are on antibiotics Continue to pack your wound and provide local wound care as you have been and to follow-up with [facility] wound center on November 30 Pending Studies at Discharge: Yes Stand-Alone Forms: My [employer], Smoking Cessation Medications and DC Order Prescriptions: New Zosyn in dextrose (iso-osm) 4.5 gram/100 mL piggyback 4.5 g IV Q8H 8 Days Qty: 2700 0RF Continued acetaminophen [Tylenol Extra Strength] 500 mg tablet 1,000 mg PO Q6H PRN (Reason: Fever Or Pain) ondansetron HCl 8 mg tablet 8 mg PO Q8H PRN (Reason: Nausea) prochlorperazine maleate [Compazine] 10 mg tablet 10 mg PO Q6H PRN (Reason: Nausea) Emergen-C 500 mg tablet,chewable 1 tab PO DAILY oxycodone 5 mg capsule 5 mg PO Q8H PRN (Reason: Pain) Keytruda 25 mg/mL solution 0 mg IV .Q 3 weeks clobetasol 0.05 % ointment 1 applic topical DAILY Qty: 30 8RF Rx Instructions: APPLY TO LEFT LOWER LEG AFFECTED AREA Santyl 250 unit/gram ointment 1 applic topical DAILY Qty: 30 5RF omeprazole 20 mg capsule,delayed release(DR/EC) 20 mg PO DAILY Qty: 90 3RF lisinopril 10 mg tablet 10 mg PO DAILY Qty: 90 3RF Hold Instructions: BP stable amlodipine 10 mg tablet 10 mg PO DAILY Qty: 90 3RF Hold Instructions: BP stable atorvastatin 20 mg tablet 20 mg PO DAILY Qty: 90 3RF tamsulosin 0.4 mg capsule 0.4 mg PO HS 30 Days Qty: 90 3RF triamcinolone acetonide 0.1 % cream 1 applic topical BID PRN (Reason: Rash) Qty: 1 doxepin 10 mg capsule 20 mg PO DAILY Qty: 60 2RF Rx Instructions: ordered by Derm docusate sodium [Dulcolax Stool Softener (dss)] 100 mg capsule 100 mg PO DAILY allopurinol 100 mg tablet 100 mg PO DAILY dexamethasone 4 mg tablet 4 mg PO DIRECTED hydromorphone 4 mg tablet 4 mg PO DIRECTED PRN (Reason: Pain) metronidazole [Metrogel] 1 % gel 1 applic topical BID PRN (Reason: NEEDED) Changed morphine 60 mg tablet extended release 60 mg PO Q12H Qty: 60 0RF Discharge Orders: Discharge Order (Routine); Ordered 11/21/22 Ordered By: Bayron Guzman Admission Data Admit Date/Time: 11/15/22 19:00 Attending Provider: Bayron Guzman Admit Provider: Morris Betts Primary Care Provider: Maia Moore Other Providers: Dale Perez Coding Level of Care Code HOSP INP/OBS DISCH >30 MIN Diagnoses Sepsis A41.9 Sepsis acute organ dysfunction status: without acute organ dysfunction Sepsis type: sepsis due to unspecified organism Cutaneous T-cell lymphoma C84.A0 Lymphoma site: unspecified region Radiation necrosis of skin and subcutaneous L59.8; Y84.2 Hyponatremia E87.1 Hypomagnesemia E83.42 Hypertension I10 Anemia D64.9 Gout M10.9 BPH (benign prostatic hyperplasia) N40.0
[2022-11-21 17:09] VITALS: PULSE 85
== END 2022-11-21 17:42 | disposition home or self-care (01) | DRG 871 ==
LOC: ED 15:40 → 2W 19:00 → SUATTDRO 19:00 → 2W 21:12